=== PATIENT | female | born 1935 | race Caucasian/White ===

== ENCOUNTER 2017-05-06 03:27 | Inpatient (IN) | payer MEDICARE ==
[2017-05-06] MEDS ORDERED: ONDANSETRON 4 MG/2 ML VIAL IVP STA (03:47)
[2017-05-06] MEDS ORDERED: NITROGLYCERIN OINT 1 INCH/GM PACKET TOPICAL STA (03:48)
[2017-05-06] MEDS ORDERED: ASPIRIN 81 MG PO STA (03:48)
[2017-05-06] MEDS ORDERED: FAMOTIDINE 20 MG/2 ML VIAL IV STA (03:48)
--- NOTE | 2017-05-06 03:52 | ED ---
General Adult HPI - General Chief complaint: Chest Pain Stated complaint: chest pain Time Seen by Provider: 05/06/17 03:37 Source: patient, EMS, RN notes reviewed Mode of arrival: EMS Limitations: no limitations - History of Present Illness Initial comments: Patient is a pleasant 81-year-old female presenting with son for chest discomfort. Patient did call his son 3 times complaining of chest discomfort. Son states patient is being evaluated for dementia and recently failed the dementia test. Patient admits to having chest discomfort still. Patient has nausea and does vomit and emergency department. Patient is slightly sweaty. Patient does complain of some dyspnea. Patient is overall a poor historian - Related Data Home Medications Medication Instructions Recorded Confirmed Aspirin 81 mg PO DAILY 02/01/14 02/08/16 Simvastatin [Zocor] 20 mg PO HS 02/01/14 02/08/16 ALPRAZolam [Xanax] 0.25 mg PO BID PRN 04/02/15 02/08/16 Montelukast [Singulair] 10 mg PO DAILY 04/02/15 02/08/16 Dicyclomine [Bentyl] 10 mg PO BID PRN 08/12/15 02/08/16 Ferrous Sulfate [Iron (65 MG 325 mg PO DAILY 08/12/15 02/08/16 Elemental)] Ascorbic Acid [Vitamin C] 12/29/15 02/08/16 Ascorbic Acid [Vitamin C] 500 mg PO DAILY 12/29/15 02/08/16 cloNIDine HCL [Clonidine HCl] 0.1 mg PO BID 12/29/15 02/08/16 Previous Rx's Medication Instructions Recorded Meclizine [Antivert] 25 mg PO TID #20 tab 02/01/14 Folic Acid 1 mg PO DAILY@1200 #30 tab 04/04/15 Metoprolol Tartrate [Lopressor] 12.5 mg PO BID #0 tab 12/30/15 Metoprolol Tartrate [Lopressor] 12.5 mg PO BID #60 dose 12/31/15 Allergies Allergy/AdvReac Type Severity Reaction Status Date / Time azithromycin [From Zithromax] Allergy Unknown Verified 02/08/16 15:37 clindamycin Allergy Unknown Verified 02/08/16 15:37 clindamycin HCl Allergy Unknown Verified 02/08/16 15:37 [From Cleocin] clindamycin palmitate HCl Allergy Unknown Verified 02/08/16 15:37 [From Cleocin] clindamycin phosphate Allergy Unknown Verified 02/08/16 15:37 [From Cleocin] codeine Allergy Unknown Verified 02/08/16 15:37 cortisone [Cortisone] Allergy Unknown Verified 02/08/16 15:37 lincomycin HCl Allergy Unknown Verified 02/08/16 15:37 [From Lincocin] meperidine HCl [From Demerol] Allergy Unknown Verified 02/08/16 15:37 Penicillins Allergy Unknown Verified 02/08/16 15:37 prednisone Allergy Unknown Verified 02/08/16 15:37 Review of Systems ROS Statement: Those systems with pertinent positive or pertinent negative responses have been documented in the HPI. ROS Other: All systems not noted in ROS Statement are negative. Constitutional: Denies: fever Eyes: Denies: eye pain ENT: Denies: ear pain Respiratory: Reports: dyspnea. Denies: cough Cardiovascular: Reports: chest pain Endocrine: Denies: fatigue Gastrointestinal: Reports: nausea, vomiting. Denies: abdominal pain Genitourinary: Denies: dysuria Musculoskeletal: Denies: back pain Skin: Denies: rash Neurological: Denies: weakness Past Medical History Past Medical History: Asthma, Diabetes Mellitus, GERD/Reflux, Osteoarthritis (OA ), Pneumonia Additional Past Medical History / Comment(s): rosacea,anemia, DIZZINESS. History of Any Multi-Drug Resistant Organisms: None Reported Past Surgical History: Appendectomy, Heart Catheterization, Hysterectomy, Pacemaker Additional Past Surgical History / Comment(s): 04/24/15 cardiac cath-clean. orif rt ankle-plate and screws, blephoplasty,loop recorder, colonoscopy Past Anesthesia/Blood Transfusion Reactions: No Reported Reaction Type of Cardiac Device: Permanent Pacemaker Device Placement Date:: UNK Past Psychological History: Anxiety Smoking Status: Former smoker Past Alcohol Use History: None Reported Past Drug Use History: None Reported - Past Family History Father Additional Family Medical History / Comment(s): lung disease Mother History Unknown: Yes General Exam General appearance: alert, in no apparent distress Head exam: Present: atraumatic Eye exam: Present: normal appearance, PERRL ENT exam: Present: normal oropharynx Neck exam: Present: normal inspection Respiratory exam: Present: normal lung sounds bilaterally Cardiovascular Exam: Present: normal rhythm, tachycardia Expanded Peripheral pulses: 2+: Dorsalis Pedis (R), Dorsalis Pedis (L) GI/Abdominal exam: Present: soft. Absent: tenderness Extremities exam: Present: normal inspection. Absent: pedal edema, calf tenderness Neurological exam: Present: alert Psychiatric exam: Present: normal affect, normal mood Skin exam: Present: normal color Course Vital Signs 05/06/17 05/06/17 03:29 04:55 Temperature 96.0 F L Pulse Rate 120 H 115 H Respiratory 16 16 Rate Blood Pressure 128/91 146/103 O2 Sat by Pulse 96 Oximetry EKG Findings - EKG Comments: EKG Findings:: Accelerated junctional rhythm at 117. QRS 104. QT 318. QTC 443. Left axis. Left anterior fascicular block. LVH with repolarization changes. Q waves in leads V1 through V4. Inverted T waves V5 V6. Medical Decision Making - Medical Decision Making Patient reevaluated and somewhat improved, resting comfortably in bed. Patient and son updated on results and plan. Case discussed with Dr. Arango, who will admit for Dr. jacinto. Heparin will be started. Cardiology will be consult. - Lab Data Result diagrams: 05/06/17 04:26 05/06/17 04:26 Lab Results 05/06/17 05/06/17 05/06/17 Range/Units 03:53 04:26 04:26 WBC 14.6 H (3.8-10.6) k/uL RBC 5.78 H (3.80-5.40) m/uL Hgb 17.3 H (11.4-16.0) gm/dL Hct 55.8 H (34.0-46.0) % MCV 96.6 (80.0-100.0) fL MCH 29.9 (25.0-35.0) pg MCHC 31.0 (31.0-37.0) g/dL RDW 13.1 (11.5-15.5) % Plt Count 458 H (150-450) k/uL Neutrophils % 78 % Lymphocytes % 14 % Monocytes % 4 % Eosinophils % 1 % Basophils % 1 % Neutrophils # 11.4 H (1.3-7.7) k/uL Lymphocytes # 2.1 (1.0-4.8) k/uL Monocytes # 0.6 (0-1.0) k/uL Eosinophils # 0.2 (0-0.7) k/uL Basophils # 0.1 (0-0.2) k/uL PT 12.5 H (9.0-12.0) sec INR 1.3 H (<1.2) APTT 24.1 (22.0-30.0) sec Sodium (137-145) mmol/L Potassium (3.5-5.1) mmol/L Chloride (98-107) mmol/L Carbon Dioxide (22-30) mmol/L Anion Gap mmol/L BUN (7-17) mg/dL Creatinine (0.52-1.04) mg/dL Est GFR (MDRD) Af Amer (>60 ml/min/1.73 sqM) Est GFR (MDRD) Non-Af (>60 ml/min/1.73 sqM) Glucose (74-99) mg/dL POC Glucose (mg/dL) 264 H (75-99) mg/dL POC Glu [employer] Worker ID Jacki Johnson Calcium (8.4-10.2) mg/dL Magnesium (1.6-2.3) mg/dL Total Bilirubin (0.2-1.3) mg/dL AST (14-36) U/L ALT (9-52) U/L Alkaline Phosphatase (38-126) U/L Total Creatine Kinase (30-135) U/L CK-MB (CK-2) (0.0-2.4) ng/mL CK-MB (CK-2) Rel Index Troponin I (0.000-0.034) ng/mL Total Protein (6.3-8.2) g/dL Albumin (3.5-5.0) g/dL Amylase (30-110) U/L Lipase (23-300) U/L 05/06/17 05/06/17 Range/Units 04:26 04:26 WBC (3.8-10.6) k/uL RBC (3.80-5.40) m/uL Hgb (11.4-16.0) gm/dL Hct (34.0-46.0) % MCV (80.0-100.0) fL MCH (25.0-35.0) pg MCHC (31.0-37.0) g/dL RDW (11.5-15.5) % Plt Count (150-450) k/uL Neutrophils % % Lymphocytes % % Monocytes % % Eosinophils % % Basophils % % Neutrophils # (1.3-7.7) k/uL Lymphocytes # (1.0-4.8) k/uL Monocytes # (0-1.0) k/uL Eosinophils # (0-0.7) k/uL Basophils # (0-0.2) k/uL PT (9.0-12.0) sec INR (<1.2) APTT (22.0-30.0) sec Sodium 140 (137-145) mmol/L Potassium 4.1 (3.5-5.1) mmol/L Chloride 108 H (98-107) mmol/L Carbon Dioxide 17 L (22-30) mmol/L Anion Gap 15 mmol/L BUN 14 (7-17) mg/dL Creatinine 0.70 (0.52-1.04) mg/dL Est GFR (MDRD) Af Amer >60 (>60 ml/min/1.73 sqM) Est GFR (MDRD) Non-Af >60 (>60 ml/min/1.73 sqM) Glucose 305 H (74-99) mg/dL POC Glucose (mg/dL) (75-99) mg/dL POC Glu [employer] Worker ID Calcium 9.9 (8.4-10.2) mg/dL Magnesium 1.9 (1.6-2.3) mg/dL Total Bilirubin 0.9 (0.2-1.3) mg/dL AST 36 (14-36) U/L ALT 26 (9-52) U/L Alkaline Phosphatase 71 (38-126) U/L Total Creatine Kinase 173 H (30-135) U/L CK-MB (CK-2) 5.1 H* (0.0-2.4) ng/mL CK-MB (CK-2) Rel Index 2.9 Troponin I 0.988 H* (0.000-0.034) ng/mL Total Protein 8.3 H (6.3-8.2) g/dL Albumin 4.6 (3.5-5.0) g/dL Amylase 45 (30-110) U/L Lipase 23 (23-300) U/L - Radiology Data Radiology results: image reviewed (Chest x-ray does show some increased interstitial markings concerning for CHF.) Critical Care Time Critical Care Time: Yes Total Critical Care Time: 34 Disposition Clinical Impression: NSTEMI (non-ST elevated myocardial infarction) Disposition: ADMITTED IP TO THIS [facility] Condition: Serious Referrals: Liza Mederios MD [Primary Care Provider] - 1-2 days Decision Time: 06:02
[2017-05-06 04:21] LABS: Glucose,Whole Blood 264 mg/dL (75-99)
--- NOTE | 2017-05-06 04:43 | XR ---
EXAM: XR Chest, 2 Views CLINICAL HISTORY: Reason: Chest Pain TECHNIQUE: Frontal and lateral views of the chest. COMPARISON: 02/08/16 radiographs. FINDINGS: Lungs: The pulmonary vascular markings are now more prominent and indistinct throughout. Linear opacity in the right midlung field may be atelectasis or minimal fluid along a fissure. Stable 6 mm right midlung field nodule. Pleural space: Trace bilateral pleural effusions. No pneumothorax. Heart: Mild cardiomegaly, stable. Mediastinum: Stable allowing for differences in positioning and projection, including aortic ectasia. Bones/joints: Osteopenia and mild degenerative changes without acute fracture seen. Rightward curvature of the thoracic spine may be positional. Tubes, lines and devices: There are again postsurgical changes at the level of GE junction. Stable appearance of left-sided single lead pacemaker. IMPRESSION: Findings suggesting the presence of CHF with interval progression since the prior exam. Stable small right midlung nodule.
[2017-05-06 04:46] LABS: Basophils # (A) 0.1 k/uL (0-0.2); Basophils % (A) 1 %; CHCM 32.2; Eosinophils # (A) 0.2 k/uL (0-0.7); Eosinophils % (A) 1 %; HCT 55.8 % (34.0-46.0); HDW 2.35; HGB 17.3 gm/dL (11.4-16.0); Luc # (Auto) 0.22; Luc % (Auto) 2; Lymphocytes # (A) 2.1 k/uL (1.0-4.8); Lymphocytes % (A) 14 %; MCH 29.9 pg (25.0-35.0); MCV 96.6 fL (80.0-100.0); Mean Platelet Volume 7.1; Monocytes # (A) 0.6 k/uL (0-1.0); Monocytes % (A) 4 %; Neutrophils # (A) 11.4 k/uL (1.3-7.7); Neutrophils % (A) 78 %; RBC 5.78 m/uL (3.80-5.40); RDW 13.1 % (11.5-15.5); WBC 14.6 k/uL (3.8-10.6)
[2017-05-06 04:54] LABS: INR 1.3 (<1.2); Partial Thromboplastin Time 24.1 sec (22.0-30.0); Prothrombin Time 12.5 sec (9.0-12.0)
[2017-05-06 04:58] LABS: ALT 26 U/L (9-52); AST 36 U/L (14-36); Alkaline Phosphatase 71 U/L (38-126); Amylase 45 U/L (30-110); Anion Gap 15 mmol/L; Blood Urea Nitrogen 14 mg/dL (7-17); Calcium 9.9 mg/dL (8.4-10.2); Carbon Dioxide 17 mmol/L (22-30); Chloride 108 mmol/L (98-107); Glucose 305 mg/dL (74-99); Magnesium 1.9 mg/dL (1.6-2.3); Non-African American GFR(MDRD) >60 (>60 ml/min/1.73 sqM); Potassium 4.1 mmol/L (3.5-5.1); Sodium 140 mmol/L (137-145); Total Bilirubin 0.9 mg/dL (0.2-1.3); Total Protein 8.3 g/dL (6.3-8.2)
[2017-05-06 05:59] LABS: Creatine Kinase MB 5.1 ng/mL (0.0-2.4); Troponin I 0.988 ng/mL (0.000-0.034)
[2017-05-06] MEDS ORDERED: HEPARIN SODIUM,PORCINE 5,000 UNIT/ML 1 ML VIAL IV ONE (06:03)
[2017-05-06] MEDS ORDERED: HEPARIN SODIUM,PORCINE 5,000 UNIT/ML 1 ML VIAL IV PRN (06:03)
[2017-05-06] MEDS ORDERED: NITROGLYCERIN SL TABS 0.4 MG TAB SUBLINGUAL PRN (06:03)
[2017-05-06] MEDS: HEPARIN SODIUM,PORCINE/D5W PMX 25,000 UNIT in DEXTROSE/WATER 1 500ML.BAG IV SCH (06:11)
[2017-05-06 08:38] LABS: Glucose,Whole Blood 332 mg/dL (75-99)
[2017-05-06] MEDS: INSULIN LISPRO (humaLOG) 300 UNIT/3 ML VIAL SQ SCH ×4 (08:41→21:58)
[2017-05-06] MEDS: METOPROLOL TARTRATE 50 MG TAB PO SCH ×2 (08:43→21:38)
[2017-05-06] MEDS: cloNIDine HCL 0.1 MG TAB PO SCH ×4 (08:43→21:51)
[2017-05-06] MEDS ORDERED: METOPROLOL TARTRATE 12.5 MG TAB PO SCH ×2 (09:00)
[2017-05-06] MEDS ORDERED: FUROSEMIDE 10 MG/ML 4 ML VIAL IV STA (10:09)
[2017-05-06] MEDS: INSULIN GLARGINE 100 UNIT/ML 10 ML VIAL SQ SCH (11:19)
[2017-05-06] MEDS: NITROGLYCERIN OINT 1 INCH/GM PACKET TOPICAL SCH ×3 (11:37→23:02)
[2017-05-06 11:47] LABS: Glucose,Whole Blood 285 mg/dL (75-99)
[2017-05-06] MEDS ORDERED: ALPRAZolam 0.25 MG TAB PO PRN (11:50)
[2017-05-06 11:52] LABS: Hemoglobin A1C 6.9 % (4.2-6.1)
[2017-05-06] MEDS ORDERED: LORazepam 2 MG/ML SYRINGE IV STA (12:08)
[2017-05-06] MEDS ORDERED: MECLIZINE 25 MG TAB PO PRN (12:15)
--- NOTE | 2017-05-06 12:19 | P.CRDCN ---
History of Present Illness Consult reason: non-Q-wave IL, atrial fibrillation History of present illness: Patient interviewed and examined 81-year-old female with mild dementia who presents with chest discomfort shortness of breath and abnormal cardiac enzymes. A. fib with RVR. She was dizzy and lightheaded she has a permanent pacemaker implanted. Cardiac enzymes are abnormal white count is elevated ALLERGIES reviewed Medications reviewed Review of systems: No fever chills or rigors, no cough, phlegm or expectoration , no nausea, vomiting or diarrhea, no hematuria, dysuria, no musculoskeletal complaints, no strokes or seizures, no skin lesions.. Her main complaint at this time is she is dizzy when she stands up and she is a little bit of a cough no chest discomfort at this time On examination her blood pressures 130/90 102/62 mmHg she is afebrile 98.6F pulse rate is 128 beats a minute respirations 16 rhythm is irregular heart sounds otherwise are normal no murmurs or gallop breath sounds are normal no rhonchi no crackles abdomen soft nontender And is warm she is lying in bed comfortably Impression Non-Q wave myocardial infarction Hypertension Atrial fibrillation Not a candidate for anticoagulation risk of falls she's had multiple falls Poor candidate for isosorbide because she has very fluctuating blood pressures Plan Atorvastatin 20 mg by mouth daily and I will consider increasing to 40 mg by mouth daily, Lipitor panel. She is already on simvastatin 20 mg daily, increase metoprolol to 50 mg twice a day and drop the dose of clonidine to his half tablet 3 times a day of the 0.1 mg by mouth I would like to switch her to metoprolol only and taper off the clonidine over the next 2-3 days. She's had a non-Q-wave IL. I would recommend medical treatment only and hence I would even consider increasing atorvastatin 40 mg daily continue aspirin to baby aspirin should be enough We will monitor her on telemetry until Tuesday at least She will definitely need a sitter in the room Past Medical History Past Medical History: Asthma, Diabetes Mellitus, GERD/Reflux, Osteoarthritis (OA ), Pneumonia Additional Past Medical History / Comment(s): rosacea,anemia, DIZZINESS. History of Any Multi-Drug Resistant Organisms: None Reported Past Surgical History: Appendectomy, Heart Catheterization, Hysterectomy, Pacemaker Additional Past Surgical History / Comment(s): 04/24/15 cardiac cath-clean. orif rt ankle-plate and screws, blephoplasty,loop recorder, colonoscopy Past Anesthesia/Blood Transfusion Reactions: No Reported Reaction Type of Cardiac Device: Permanent Pacemaker Device Placement Date:: UNK Past Psychological History: Anxiety Smoking Status: Former smoker Past Alcohol Use History: None Reported Past Drug Use History: None Reported - Past Family History Father Additional Family Medical History / Comment(s): lung disease Mother History Unknown: Yes Medications and Allergies Home Medications Medication Instructions Recorded Confirmed Type Aspirin 81 mg PO DAILY 02/01/14 05/06/17 History Simvastatin [Zocor] 20 mg PO HS 02/01/14 05/06/17 History ALPRAZolam [Xanax] 0.25 mg PO BID PRN 04/02/15 05/06/17 History Montelukast [Singulair] 10 mg PO DAILY 04/02/15 05/06/17 History cloNIDine HCL [Clonidine HCl] 0.1 mg PO TID 12/29/15 05/06/17 History Escitalopram [Lexapro] 10 mg PO DAILY 05/06/17 05/06/17 History Folic Acid 1 mg PO DAILY 05/06/17 05/06/17 History Meclizine [Antivert] 25 mg PO TID PRN 05/06/17 05/06/17 History Allergies Allergy/AdvReac Type Severity Reaction Status Date / Time azithromycin [From Zithromax] Allergy Unknown Verified 05/06/17 08:06 clindamycin Allergy Unknown Verified 05/06/17 08:06 clindamycin HCl Allergy Unknown Verified 05/06/17 08:06 [From Cleocin] clindamycin palmitate HCl Allergy Unknown Verified 05/06/17 08:06 [From Cleocin] clindamycin phosphate Allergy Unknown Verified 05/06/17 08:06 [From Cleocin] codeine Allergy Unknown Verified 05/06/17 08:06 cortisone [Cortisone] Allergy Unknown Verified 05/06/17 08:06 lincomycin HCl Allergy Unknown Verified 05/06/17 08:06 [From Lincocin] meperidine HCl [From Demerol] Allergy Unknown Verified 05/06/17 08:06 Penicillins Allergy Unknown Verified 05/06/17 08:06 prednisone Allergy Unknown Verified 05/06/17 08:06 Physical Exam Vitals: Vital Signs Temp Pulse Pulse Pulse Resp BP BP 05/06/17 11:31 98.6 F 102 H 17 102/62 05/06/17 08:40 97.9 F 128 H 19 130/91 05/06/17 07:17 128 H 18 132/85 05/06/17 06:21 96.4 F L 118 H 14 134/87 05/06/17 04:55 96.0 F L 115 H 16 146/103 05/06/17 03:29 120 H 16 128/91 Pulse Ox 05/06/17 11:31 93 L 05/06/17 08:40 95 05/06/17 07:17 91 L 05/06/17 06:21 94 L 05/06/17 04:55 96 05/06/17 03:29 Intake and Output 05/05/17 05/06/17 05/06/17 22:59 06:59 14:59 Other: Voiding Method Toilet # Voids 2 Weight 63.503 kg Results 05/06/17 04:26 05/06/17 04:26 Cardiac Enzymes 05/06/17 05/06/17 Range/Units 04:26 04:26 AST 36 (14-36) U/L CK-MB (CK-2) 5.1 H* (0.0-2.4) ng/mL Troponin I 0.988 H* (0.000-0.034) ng/mL Coagulation 05/06/17 05/06/17 Range/Units 04:26 11:31 PT 12.5 H (9.0-12.0) sec APTT 24.1 58.1 H (22.0-30.0) sec CBC 05/06/17 Range/Units 04:26 WBC 14.6 H (3.8-10.6) k/uL RBC 5.78 H (3.80-5.40) m/uL Hgb 17.3 H (11.4-16.0) gm/dL Hct 55.8 H (34.0-46.0) % Plt Count 458 H (150-450) k/uL Comprehensive Metabolic Panel 05/06/17 Range/Units 04:26 Sodium 140 (137-145) mmol/L Potassium 4.1 (3.5-5.1) mmol/L Chloride 108 H (98-107) mmol/L Carbon Dioxide 17 L (22-30) mmol/L BUN 14 (7-17) mg/dL Creatinine 0.70 (0.52-1.04) mg/dL Glucose 305 H (74-99) mg/dL Calcium 9.9 (8.4-10.2) mg/dL AST 36 (14-36) U/L ALT 26 (9-52) U/L Alkaline Phosphatase 71 (38-126) U/L Total Protein 8.3 H (6.3-8.2) g/dL Albumin 4.6 (3.5-5.0) g/dL Current Medications Generic Name Dose Route Start Last Admin Trade Name Freq PRN Reason Stop Dose Admin Alprazolam 0.25 mg 05/06/17 11:50 Xanax PO BID PRN Anxiety Aspirin 325 mg 05/07/17 09:00 Aspirin PO DAILY [facility] Clonidine 0.05 mg 05/06/17 09:00 05/06/17 08:43 Catapres PO 0.05 mg TID CRISTOFER Administration Escitalopram Oxalate 10 mg 05/07/17 09:00 Lexapro PO DAILY [facility] Folic Acid 1 mg 05/07/17 12:00 Folic Acid PO 1200 [facility] Heparin Sodium (Porcine) 0 unit 05/06/17 06:03 Heparin IV Q6HR PRN Low PTT Protocol Heparin Sodium/Dextrose 25,000 500 mls @ 15.24 mls/hr 05/06/17 06:15 06:11 unit/ IV Solution IV 12 units/kg/hr .Q24H CRISTOFER 15.24 mls/hr Protocol Administration 12 UNITS/KG/HR Insulin Glargine 10 unit 05/06/17 10:15 05/06/17 11:19 Lantus SQ 10 unit DAILY [facility] Administration Insulin Human Lispro 0 unit 05/06/17 07:30 05/06/17 11:37 Humalog SQ 4 unit ACHS CRISTOFER Administration Protocol Lorazepam 0.5 mg 05/06/17 12:08 Ativan IV 05/06/17 12:09 ONCE STA Meclizine HCl 25 mg 05/06/17 12:15 Antivert PO TID PRN DIZZINESS Metoprolol Tartrate 50 mg 05/06/17 09:00 05/06/17 08:43 Lopressor PO 50 mg BID CRISTOFER Administration Montelukast Sodium 10 mg 05/07/17 09:00 Singulair PO DAILY CRISTOFER Nitroglycerin 1 inch 05/06/17 12:00 05/06/17 11:37 Nitro-Bid Oint TOPICAL 1 inch Q6HR CRISTOFER Administration Nitroglycerin 0.4 mg 05/06/17 06:03 Nitrostat SUBLINGUAL Q5M PRN Chest Pain Non-Formulary Medication 20 mg 05/06/17 21:00 Simvastatin PO HS [facility] Intake and Output 05/05/17 05/06/17 05/06/17 22:59 06:59 14:59 Other: Voiding Method Toilet # Voids 2 Weight 63.503 kg 05/06/17 04:26 05/06/17 04:26
--- NOTE | 2017-05-06 12:29 | P.HPIM ---
History of Present Illness H&P Date: 05/06/17 Chief Complaint: Chest pain This is a 81-year-old female with a known past medical history of dementia, hypertension, hyperlipidemia, chronic vertigo, anxiety, and diabetes mellitus. Patient was brought into the emergency room by her son for chest discomfort. ER reports that the patient told her son that she was having chest pain 3 times. She was found to have elevated troponin at 0.988 started on IV heparin and diagnosed with a non-ST elevated myocardial infarction. EKG had shown a general accelerated junctional rhythm with PVCs. She's been admitted to the sixth floor cardiology has been consulted. Chest x-ray showed signs of congestive heart failure and BNP was elevated at 7580. Patient admits to having some shortness of breath and lungs were evidence of fluid overload. She was started on IV Lasix. Patient's blood sugars were also elevated at 332 A1c is 6.9. Portion reports that she's had a history of diabetes but is been off medication for years. Cardiology has adjust medications they've increased the metoprolol if the twice a day and decreased the clonidine. Patient is easily agitated. Nursing staff has notified me that patient is coming aggressive and is agitated. She'll receive 1 dose of Ativan 2.5 mg 1 IV. Patient refuses to take her Xanax this morning. Review of Systems Visit refer to HPI otherwise unremarkable Past Medical History Past Medical History: Asthma, Diabetes Mellitus, GERD/Reflux, Osteoarthritis (OA ), Pneumonia Additional Past Medical History / Comment(s): rosacea,anemia, DIZZINESS. History of Any Multi-Drug Resistant Organisms: None Reported Past Surgical History: Appendectomy, Heart Catheterization, Hysterectomy, Pacemaker Additional Past Surgical History / Comment(s): 04/24/15 cardiac cath-clean. orif rt ankle-plate and screws, blephoplasty,loop recorder, colonoscopy Past Anesthesia/Blood Transfusion Reactions: No Reported Reaction Type of Cardiac Device: Permanent Pacemaker Device Placement Date:: UNK Past Psychological History: Anxiety Smoking Status: Former smoker Past Alcohol Use History: None Reported Past Drug Use History: None Reported - Past Family History Father Additional Family Medical History / Comment(s): lung disease Mother History Unknown: Yes Medications and Allergies Home Medications Medication Instructions Recorded Confirmed Type Aspirin 81 mg PO DAILY 02/01/14 05/06/17 History Simvastatin [Zocor] 20 mg PO HS 02/01/14 05/06/17 History ALPRAZolam [Xanax] 0.25 mg PO BID PRN 04/02/15 05/06/17 History Montelukast [Singulair] 10 mg PO DAILY 04/02/15 05/06/17 History cloNIDine HCL [Clonidine HCl] 0.1 mg PO TID 12/29/15 05/06/17 History Escitalopram [Lexapro] 10 mg PO DAILY 05/06/17 05/06/17 History Folic Acid 1 mg PO DAILY 05/06/17 05/06/17 History Meclizine [Antivert] 25 mg PO TID PRN 05/06/17 05/06/17 History Allergies Allergy/AdvReac Type Severity Reaction Status Date / Time azithromycin [From Zithromax] Allergy Unknown Verified 05/06/17 08:06 clindamycin Allergy Unknown Verified 05/06/17 08:06 clindamycin HCl Allergy Unknown Verified 05/06/17 08:06 [From Cleocin] clindamycin palmitate HCl Allergy Unknown Verified 05/06/17 08:06 [From Cleocin] clindamycin phosphate Allergy Unknown Verified 05/06/17 08:06 [From Cleocin] codeine Allergy Unknown Verified 05/06/17 08:06 cortisone [Cortisone] Allergy Unknown Verified 05/06/17 08:06 lincomycin HCl Allergy Unknown Verified 05/06/17 08:06 [From Lincocin] meperidine HCl [From Demerol] Allergy Unknown Verified 05/06/17 08:06 Penicillins Allergy Unknown Verified 05/06/17 08:06 prednisone Allergy Unknown Verified 05/06/17 08:06 Physical Exam Vitals: Vital Signs Temp Pulse Pulse Pulse Resp BP BP 05/06/17 11:31 98.6 F 102 H 17 102/62 05/06/17 08:40 97.9 F 128 H 19 130/91 05/06/17 07:17 128 H 18 132/85 05/06/17 06:21 96.4 F L 118 H 14 134/87 05/06/17 04:55 96.0 F L 115 H 16 146/103 05/06/17 03:29 120 H 16 128/91 Pulse Ox 05/06/17 11:31 93 L 05/06/17 08:40 95 05/06/17 07:17 91 L 05/06/17 06:21 94 L 05/06/17 04:55 96 05/06/17 03:29 Intake and Output 05/05/17 05/06/17 05/06/17 22:59 06:59 14:59 Other: Voiding Method Toilet # Voids 2 Weight 63.503 kg Head normocephalic Neck supple Lungs crackles at the bases Heart regular rate and rhythm S1-S2, no rub or gallop Abdomen is soft nontender nondistended positive bowel sounds no hepatosplenomegaly Extremities no edema Neuro alert and orientated to 3 Results CBC & Chem 7: 05/06/17 04:26 05/06/17 04:26 Labs: Abnormal Lab Results - Last 24 Hours (Table) 05/06/17 05/06/17 05/06/17 Range/Units 03:53 04:26 04:26 WBC 14.6 H (3.8-10.6) k/uL RBC 5.78 H (3.80-5.40) m/uL Hgb 17.3 H (11.4-16.0) gm/dL Hct 55.8 H (34.0-46.0) % Plt Count 458 H (150-450) k/uL Neutrophils # 11.4 H (1.3-7.7) k/uL PT 12.5 H (9.0-12.0) sec INR 1.3 H (<1.2) APTT (22.0-30.0) sec Chloride (98-107) mmol/L Carbon Dioxide (22-30) mmol/L Glucose (74-99) mg/dL POC Glucose (mg/dL) 264 H (75-99) mg/dL Hemoglobin A1c (4.2-6.1) % Total Creatine Kinase (30-135) U/L CK-MB (CK-2) (0.0-2.4) ng/mL Troponin I (0.000-0.034) ng/mL Total Protein (6.3-8.2) g/dL 05/06/17 05/06/17 05/06/17 Range/Units 04:26 04:26 04:26 WBC (3.8-10.6) k/uL RBC (3.80-5.40) m/uL Hgb (11.4-16.0) gm/dL Hct (34.0-46.0) % Plt Count (150-450) k/uL Neutrophils # (1.3-7.7) k/uL PT (9.0-12.0) sec INR (<1.2) APTT (22.0-30.0) sec Chloride 108 H (98-107) mmol/L Carbon Dioxide 17 L (22-30) mmol/L Glucose 305 H (74-99) mg/dL POC Glucose (mg/dL) (75-99) mg/dL Hemoglobin A1c 6.9 H (4.2-6.1) % Total Creatine Kinase 173 H (30-135) U/L CK-MB (CK-2) 5.1 H* (0.0-2.4) ng/mL Troponin I 0.988 H* (0.000-0.034) ng/mL Total Protein 8.3 H (6.3-8.2) g/dL 05/06/17 05/06/17 05/06/17 Range/Units 08:35 11:31 11:35 WBC (3.8-10.6) k/uL RBC (3.80-5.40) m/uL Hgb (11.4-16.0) gm/dL Hct (34.0-46.0) % Plt Count (150-450) k/uL Neutrophils # (1.3-7.7) k/uL PT (9.0-12.0) sec INR (<1.2) APTT 58.1 H (22.0-30.0) sec Chloride (98-107) mmol/L Carbon Dioxide (22-30) mmol/L Glucose (74-99) mg/dL POC Glucose (mg/dL) 332 H 285 H (75-99) mg/dL Hemoglobin A1c (4.2-6.1) % Total Creatine Kinase (30-135) U/L CK-MB (CK-2) (0.0-2.4) ng/mL Troponin I (0.000-0.034) ng/mL Total Protein (6.3-8.2) g/dL Assessment and Plan Plan: 1. Acute Non-Q-wave myocardial infarction present on admission: Patient currently on IV heparin. She has been evaluated by cardiology the recommending medical management. They've adjusted her Lipitor. Per cardiology patient is a poor candidate for indoor because of her fluctuating blood pressures. Statin dose adjusted by cardiology 2. Atrial fibrillation with rapid ventricular response: Evaluated by cardiology they've increased her metoprolol dose to 50 mg twice a day. Patient not a good candidate for anticoagulation because of her risks of multiple falls 3. Hyperlipidemia continue statin 4. Acute diastolic CHF exacerbation: Patient started on IV Lasix. Chest x-ray shows evidence of fluid overload and BNP elevated at 7580. Echo pending 5. Diabetes mellitus type 2: Patient has been off of blood sugar medications for years. However, blood sugar of 332 on admission. Hemoglobin A1c of 6.9. Patient will be started on Lantus 10 units daily and continue sliding scale coverage 6. Dementia 7. Essential hypertension 8. Generalized anxiety disorder resume Xanax 9. Chronic vertigo resume Antivert DVT prophylaxis IV heparin Consult has been placed for social work for possible ECF placement. Consult PT OT Time with Patient: Greater than 30 (Greater than 50% of the total time spent in counseling and coordination of care.I performed an examination of the patient and discussed their management with the physician Furnace Operator. I have reviewed the Physician Furnace Operator's notes and agree with the documented findings and plan of care)
[2017-05-06 12:33] LABS: Creatine Kinase MB 6.4 ng/mL (0.0-2.4); Troponin I 1.9 ng/mL (0.000-0.034)
--- NOTE | 2017-05-06 16:46 | ECHOF ---
Referral Reason:nstemi MEASUREMENTS -------- HEIGHT: 162.6 cm WEIGHT: 63.5 kg BP: 132/82 RVIDd: 1.8 cm (< 3.3) IVSd: 1.2 cm (0.6 - 1.1) LVIDd: 4.7 cm (3.9 - 5.3) LVPWd: 1.0 cm (0.6 - 1.1) IVSs: 1.5 cm LVIDs: 4.0 cm LVPWs: 1.2 cm LA Diam: 3.3 cm (2.7 - 3.8) LAESV Index (A-L): 27.30 ml/m Ao Diam: 3.4 cm (2.0 - 3.7) AV Cusp: 1.4 cm (1.5 - 2.6) LA Diam: 3.5 cm (2.7 - 3.8) MV EXCURSION: 15.228 mm (> 18.000) MV EF SLOPE: 67 mm/s (70 - 150) EPSS: 1.7 cm MV E Gilberto: 0.71 m/s MV DecT: 213 ms MV A Gilberto: 0.41 m/s MV E/A Ratio: 1.74 RAP: 5.00 mmHg RVSP: 34.02 mmHg FINDINGS -------- Sinus rhythm. This was a technically adequate study. There is mild concentric left ventricular hypertrophy. There is severe global hypokinesis of LV . Overall left ventricular systolic function is severely impaired with, an EF < 20%. The right ventricle is normal in size. Normal LA size by volume 22+/-6 ml/m2. The right atrial size is normal. The aortic valve is trileaflet, and appears structurally normal. No aortic stenosis or regurgitation. Mild mitral annular calcification present. Moderate mitral regurgitation is present. Mild tricuspid regurgitation present. There is no evidence of pulmonary hypertension. The right ventricular systolic pressure, as measured by Doppler, is 34.02mmHg. There is no pulmonic regurgitation present. The aortic root size is normal. There is no pericardial effusion. CONCLUSIONS -------- 1. There is mild concentric left ventricular hypertrophy. 2. There is no pulmonic regurgitation present. 3. The aortic root size is normal. 4. There is no pericardial effusion. 5. There is severe global hypokinesis of LV . 6. Overall left ventricular systolic function is severely impaired with, an EF < 20%. 7. The aortic valve is trileaflet, and appears structurally normal. No aortic stenosis or regurgitation. 8. Mild mitral annular calcification present. 9. Moderate mitral regurgitation is present. 10. Mild tricuspid regurgitation present. 11. There is no evidence of pulmonary hypertension. 12. The right ventricular systolic pressure, as measured by Doppler, is 34.02mmHg. SOLAR ENGINEER: Tabatha Johnson RDCS
[2017-05-06 16:51] LABS: Glucose,Whole Blood 105 mg/dL (75-99)
[2017-05-06] MEDS: FUROSEMIDE 10 MG/ML 4 ML VIAL IV SCH ×2 (17:04→23:02)
[2017-05-06 17:31] LABS: Creatine Kinase MB 4.8 ng/mL (0.0-2.4); Troponin I 2.51 ng/mL (0.000-0.034)
[2017-05-06] MEDS ORDERED: ATORVASTATIN 10 MG TAB PO SCH (21:00)
[2017-05-06 21:34] LABS: Glucose,Whole Blood 144 mg/dL (75-99)
[2017-05-06] MEDS: ATORVASTATIN 20 MG TAB PO SCH ×2 (21:38→21:51)
[2017-05-06] MEDS: MONTELUKAST 10 MG TAB PO SCH ×2 (21:38→21:51)
[2017-05-06] MEDS: LORazepam 2 MG/ML SYRINGE IV PRN (22:17)
[2017-05-07] MEDS: LORazepam 2 MG/ML SYRINGE IV PRN (02:43)
[2017-05-07] MEDS: NITROGLYCERIN OINT 1 INCH/GM PACKET TOPICAL SCH (05:41)
[2017-05-07 06:22] LABS: Mean Platelet Volume 7.1
[2017-05-07] MEDS: INSULIN LISPRO (humaLOG) 300 UNIT/3 ML VIAL SQ SCH ×4 (06:33→22:21)
[2017-05-07 06:43] LABS: Glucose,Whole Blood 153 mg/dL (75-99)
[2017-05-07 07:00] LABS: Cholesterol 193 mg/dL (<200); HDL Cholesterol 72 mg/dL (40-60)
[2017-05-07] MEDS: HEPARIN SODIUM,PORCINE/D5W PMX 25,000 UNIT in DEXTROSE/WATER 1 500ML.BAG IV SCH (07:43)
[2017-05-07] MEDS: ASPIRIN 325 MG TAB PO SCH (07:46)
[2017-05-07] MEDS: cloNIDine HCL 0.1 MG TAB PO SCH (07:46)
[2017-05-07] MEDS: FOLIC ACID 1 MG TAB PO SCH (07:46)
[2017-05-07] MEDS: ESCITALOPRAM 10 MG TAB PO SCH (07:47)
[2017-05-07] MEDS: METOPROLOL TARTRATE 50 MG TAB PO SCH ×3 (07:47→22:11)
[2017-05-07] MEDS: INSULIN GLARGINE 100 UNIT/ML 10 ML VIAL SQ SCH (08:02)
[2017-05-07] MEDS: FUROSEMIDE 10 MG/ML 4 ML VIAL IV SCH (08:03)
--- NOTE | 2017-05-07 10:23 | P.PN ---
Subjective This is a 81-year-old female with a known past medical history of dementia, hypertension, hyperlipidemia, chronic vertigo, anxiety, and diabetes mellitus. Patient was brought into the emergency room by her son for chest discomfort. ER reports that the patient told her son that she was having chest pain 3 times. She was found to have elevated troponin at 0.988 started on IV heparin and diagnosed with a non-ST elevated myocardial infarction. EKG had shown a general accelerated junctional rhythm with PVCs. She's been admitted to the sixth floor cardiology has been consulted. Chest x-ray showed signs of congestive heart failure. On 05/06/2017 Patient somnolant, responsive in no apparent distress, no new episodes of chest pain no shortness of breath at rest. Objective - Vital Signs Vital signs: Vital Signs Temp 97 F L 05/07/17 07:46 Pulse 106 H 05/07/17 07:46 Resp 20 05/07/17 07:46 BP 103/76 05/07/17 07:46 Pulse Ox 91 L 05/07/17 07:46 Intake & Output 05/06/17 05/07/17 05/07/17 18:59 06:59 18:59 Intake Total 376.174 150 Balance 376.174 150 Weight 63.503 kg 52 kg Intake: Intake, IV Titration 376.174 Amount Heparin Sodium,Porcine/ 376.174 D5w Pmx 25,000 unit In Dextrose/Water 1 500ml. bag @ 12 UNITS/KG/HR 15. 24 mls/hr IV .Q24H [facility] Rx #:[id number] Oral 150 Other: Voiding Method Toilet Toilet Toilet # Voids 1 4 - Exam In general patient is alert and oriented 3 in no apparent distress HEENT head normocephalic and atraumatic Neck is supple no JVD no goiter no lymphadenopathy Chest exam reveals a scattered crackles in both bases no wheezing Cardiac exam reveals regular heart sounds S1 and S2 no gallops no murmurs Abdomen is soft nontender no organomegaly with normal bowel sounds Extremity exam reveals no edema no cyanosis or clubbing - Labs CBC & Chem 7: 05/07/17 05:37 05/06/17 04:26 Labs: Abnormal Lab Results - Last 24 Hours (Table) 05/06/17 05/06/17 05/06/17 Range/Units 04:26 11:31 11:31 APTT 58.1 H (22.0-30.0) sec POC Glucose (mg/dL) (75-99) mg/dL Hemoglobin A1c 6.9 H (4.2-6.1) % Total Creatine Kinase 151 H (30-135) U/L CK-MB (CK-2) 6.4 H* (0.0-2.4) ng/mL Troponin I 1.900 H* (0.000-0.034) ng/mL HDL Cholesterol (40-60) mg/dL 05/06/17 05/06/17 05/06/17 Range/Units 11:35 16:35 16:47 APTT (22.0-30.0) sec POC Glucose (mg/dL) 285 H 105 H (75-99) mg/dL Hemoglobin A1c (4.2-6.1) % Total Creatine Kinase 176 H (30-135) U/L CK-MB (CK-2) 4.8 H* (0.0-2.4) ng/mL Troponin I 2.510 H* (0.000-0.034) ng/mL HDL Cholesterol (40-60) mg/dL 05/06/17 05/07/17 05/07/17 Range/Units 21:31 05:37 05:37 APTT 54.9 H (22.0-30.0) sec POC Glucose (mg/dL) 144 H (75-99) mg/dL Hemoglobin A1c (4.2-6.1) % Total Creatine Kinase (30-135) U/L CK-MB (CK-2) (0.0-2.4) ng/mL Troponin I (0.000-0.034) ng/mL HDL Cholesterol 72 H (40-60) mg/dL 05/07/17 Range/Units 06:31 APTT (22.0-30.0) sec POC Glucose (mg/dL) 153 H (75-99) mg/dL Hemoglobin A1c (4.2-6.1) % Total Creatine Kinase (30-135) U/L CK-MB (CK-2) (0.0-2.4) ng/mL Troponin I (0.000-0.034) ng/mL HDL Cholesterol (40-60) mg/dL Assessment and Plan Plan: 1. Acute Non-Q-wave myocardial infarction present on admission: Patient currently on IV heparin. She has been evaluated by cardiology the recommending medical management. They've adjusted her Lipitor. Per cardiology patient is a poor candidate for indoor because of her fluctuating blood pressures. Statin dose adjusted by cardiology 2. Atrial fibrillation with rapid ventricular response: Evaluated by cardiology they've increased her metoprolol dose to 50 mg twice a day. Patient not a good candidate for anticoagulation because of her risks of multiple falls 3. Hyperlipidemia continue statin 4. Acute diastolic CHF exacerbation: Patient started on IV Lasix. Chest x-ray shows evidence of fluid overload and BNP elevated at 7580. Echo pending 5. Diabetes mellitus type 2: Patient has been off of blood sugar medications for years. However, blood sugar of 332 on admission. Hemoglobin A1c of 6.9. Patient will be started on Lantus 10 units daily and continue sliding scale coverage, at this time no plans per cardiology for any intervention, will start metformin 500 mg by mouth twice daily Will discontinue Lantus and assess if patient can be on oral hypoglycemic agents alone. 6. Dementia, chronic however patient is having worsening mental status changes will check computed tomography scan of the brain without contrast Will consult neurology patient may need to be transferred to a group home after this admission 7. Essential hypertension 8. Generalized anxiety disorder resume Xanax 9. Chronic vertigo resume Antivert 10. For DVT prophylaxis IV heparin has been discontinued will start lovenox 40 mg SQ daily
[2017-05-07 11:44] LABS: Glucose,Whole Blood 175 mg/dL (75-99)
--- NOTE | 2017-05-07 11:46 | P.PN ---
Subjective Principal diagnosis: NSTEMI A pleasant 81-year-old female patient who follows with in the office. She has a known history of paroxysmal atrial fibrillation, sick sinus syndrome, status post pacemaker, postural hypotension, not a candidate for anticoagulation due to frequent falls and dementia. Presented to the emergency department with complaints of chest discomfort. She was found to be positive for a non-ST elevation VA. Echocardiogram showed severely impaired LV systolic function with ejection fraction was 20%. Patient is being managed medically. She has been chest pain-free. Objective - Vital Signs Vital signs: Vital Signs Temp 97 F L 05/07/17 07:46 Pulse 106 H 05/07/17 07:46 Resp 20 05/07/17 07:46 BP 103/76 05/07/17 07:46 Pulse Ox 91 L 05/07/17 07:46 Intake & Output 05/06/17 05/07/17 05/07/17 18:59 06:59 18:59 Intake Total 376.174 150 Balance 376.174 150 Weight 63.503 kg 52 kg Intake: Intake, IV Titration 376.174 Amount Heparin Sodium,Porcine/ 376.174 D5w Pmx 25,000 unit In Dextrose/Water 1 500ml. bag @ 12 UNITS/KG/HR 15. 24 mls/hr IV .Q24H [facility] Rx #:[id number] Oral 150 Other: Voiding Method Toilet Toilet Toilet # Voids 1 4 - Exam PHYSICAL EXAMINATION: HEENT: Head is atraumatic, normocephalic. Pupils equal, round. Neck is supple. There is no elevated jugular venous pressure. HEART EXAMINATION: Heart sounds regular, S1 and S2 normal. No murmur or gallop heard. CHEST EXAMINATION: Lungs are clear to auscultation and precussion. No chest wall tenderness is noted on palpation or with deep breathing. ABDOMEN: Soft, nontender. Bowel sounds are heard. No organomegaly noted. EXTREMITIES: 2+ peripheral pulses with no evidence of peripheral edema and no calf tenderness noted. NEUROLOGIC patient is awake, alert and oriented to person. . - Labs CBC & Chem 7: 05/07/17 05:37 05/06/17 04:26 Labs: Abnormal Lab Results - Last 24 Hours (Table) 05/06/17 05/06/17 05/06/17 Range/Units 04:26 11:31 11:31 APTT 58.1 H (22.0-30.0) sec POC Glucose (mg/dL) (75-99) mg/dL Hemoglobin A1c 6.9 H (4.2-6.1) % Total Creatine Kinase 151 H (30-135) U/L CK-MB (CK-2) 6.4 H* (0.0-2.4) ng/mL Troponin I 1.900 H* (0.000-0.034) ng/mL HDL Cholesterol (40-60) mg/dL 05/06/17 05/06/17 05/06/17 Range/Units 11:35 16:35 16:47 APTT (22.0-30.0) sec POC Glucose (mg/dL) 285 H 105 H (75-99) mg/dL Hemoglobin A1c (4.2-6.1) % Total Creatine Kinase 176 H (30-135) U/L CK-MB (CK-2) 4.8 H* (0.0-2.4) ng/mL Troponin I 2.510 H* (0.000-0.034) ng/mL HDL Cholesterol (40-60) mg/dL 05/06/17 05/07/17 05/07/17 Range/Units 21:31 05:37 05:37 APTT 54.9 H (22.0-30.0) sec POC Glucose (mg/dL) 144 H (75-99) mg/dL Hemoglobin A1c (4.2-6.1) % Total Creatine Kinase (30-135) U/L CK-MB (CK-2) (0.0-2.4) ng/mL Troponin I (0.000-0.034) ng/mL HDL Cholesterol 72 H (40-60) mg/dL 05/07/17 Range/Units 06:31 APTT (22.0-30.0) sec POC Glucose (mg/dL) 153 H (75-99) mg/dL Hemoglobin A1c (4.2-6.1) % Total Creatine Kinase (30-135) U/L CK-MB (CK-2) (0.0-2.4) ng/mL Troponin I (0.000-0.034) ng/mL HDL Cholesterol (40-60) mg/dL Assessment and Plan Plan: Assessment and plan #1 non-ST elevation VA #2 hypertension #3 dementia #4 sick sinus syndrome #5 permanent pacemaker #6 severely impaired LV systolic function, EF less than 20% From applied behavior specialist perspective, we will discontinue Nitropaste, heparin drip and clonidine. We will increase metoprolol to 50 mg by mouth 3 times a day. Continue monitor the patient. We will Provide further recommendations accordingly. Maximize medical therapy. DISASTER DIRECTOR note has been reviewed, I agree with a documented findings and plan of care. Patient was seen and examined.
--- NOTE | 2017-05-07 12:04 | CT ---
EXAMINATION TYPE: CT brain wo con DATE OF EXAM: 05/07/2017 COMPARISON: 02/08/2016 HISTORY: Altered mental status CT DLP: 940.7 mGycm Automated exposure control for dose reduction was used. FINDINGS: Mild to moderate generalized degenerative change with a slightly greater frontal lobe component. [place] ventricular low attenuation is nonspecific. No midline shift or mass effect. Calvarium intact. Intracranial atherosclerotic changes noted. IMPRESSION: NONSPECIFIC WHITE MATTER CHANGES MOST LIKELY THE BASIS OF REMOTE MICROVASCULAR ISCHEMIA. IF THERE IS CONCERN FOR ACUTE ISCHEMIA CORRELATE WITH MRI. NO ACUTE HEMORRHAGE.
[2017-05-07] MEDS: ENOXAPARIN 40 MG/0.4 ML SYRINGE SQ SCH (12:15)
[2017-05-07 16:22] LABS: Appearance,Urine Clear (Clear); Bilirubin,Urine Negative (Negative); Glucose,Urine (UA) Negative (Negative); Ketones,Urine Negative (Negative); Leukocyte Esterase,Urine Negative (Negative); Nitrite,Urine Negative (Negative); Protein,Urine Negative (Negative); UA Billing (MACRO vs. MICRO) CHEM; Urobilinogen,Urine <2.0 mg/dL (<2.0)
[2017-05-07 16:44] LABS: Glucose,Whole Blood 134 mg/dL (75-99)
[2017-05-07] MEDS: metFORMIN 500 MG TAB PO SCH (16:53)
[2017-05-07 21:19] LABS: Glucose,Whole Blood 138 mg/dL (75-99)
[2017-05-07] MEDS: ATORVASTATIN 20 MG TAB PO SCH ×2 (22:19→22:44)
[2017-05-07] MEDS: MONTELUKAST 10 MG TAB PO SCH ×2 (22:19→22:41)
[2017-05-08 06:14] LABS: Glucose,Whole Blood 148 mg/dL (75-99)
[2017-05-08 06:15] LABS: Basophils % (A) 0 %; CH 30.9; Eosinophils % (A) 0 %; HDW 2.31; HGB 14.5 gm/dL (11.4-16.0); Luc # (Auto) 0.21; Luc % (Auto) 1; Lymphocytes # (A) 1.7 k/uL (1.0-4.8); Lymphocytes % (A) 10 %; MCH 30.5 pg (25.0-35.0); MCHC 32.3 g/dL (31.0-37.0); MCV 94.3 fL (80.0-100.0); Mean Platelet Volume 7.5; Monocytes % (A) 6 %; Neutrophils # (A) 13.5 k/uL (1.3-7.7); Neutrophils % (A) 82 %; RBC 4.77 m/uL (3.80-5.40); RDW 13.3 % (11.5-15.5); WBC 16.5 k/uL (3.8-10.6); WBC (Perox) 16.86
[2017-05-08] MEDS: metFORMIN 500 MG TAB PO SCH ×2 (06:20→17:17)
[2017-05-08] MEDS: INSULIN LISPRO (humaLOG) 300 UNIT/3 ML VIAL SQ SCH ×4 (06:20→22:24)
[2017-05-08 06:31] LABS: ALT 27 U/L (9-52); AST 29 U/L (14-36); Alkaline Phosphatase 57 U/L (38-126); Anion Gap 13 mmol/L; Blood Urea Nitrogen 37 mg/dL (7-17); Calcium 9.4 mg/dL (8.4-10.2); Carbon Dioxide 26 mmol/L (22-30); Chloride 104 mmol/L (98-107); Glucose 153 mg/dL (74-99); Non-African American GFR(MDRD) 60 (>60 ml/min/1.73 sqM); Potassium 3.7 mmol/L (3.5-5.1); Sodium 143 mmol/L (137-145); Total Bilirubin 0.8 mg/dL (0.2-1.3); Total Protein 6.8 g/dL (6.3-8.2)
[2017-05-08] MEDS: FOLIC ACID 1 MG TAB PO SCH (07:55)
[2017-05-08] MEDS: METOPROLOL TARTRATE 50 MG TAB PO SCH ×3 (07:55→22:24)
[2017-05-08] MEDS: ASPIRIN 325 MG TAB PO SCH (07:55)
[2017-05-08] MEDS: ESCITALOPRAM 10 MG TAB PO SCH (07:55)
[2017-05-08] MEDS: ENOXAPARIN 40 MG/0.4 ML SYRINGE SQ SCH (07:56)
--- NOTE | 2017-05-08 11:41 | P.PN ---
Subjective Patient is lying comfortably in bed. She barely recognizes me although she opens her eyes and says she was tomorrow. She has been my patient for many years and she has shown progressively worsening dementia. Clearly in the hospital she has become was. She came in with a non-Q wave myocardial infarction and is on appropriate treatment for Breath sounds are reduced bilaterally, heart sounds S1 and S2 are normal, blood pressure 123/80 mmHg him a she's afebrile normal respirations I made the following changes in her medications 1. I tapered off clonidine 2. I increase beta blockers, metoprolol 3. Status was switched to atorvastatin 20 mg by mouth daily Her blood pressure is controlled She has underlying atrial fibrillation but is not a candidate for anticoagulation she has a history of falls Obviously she is at high risk of stroke I would recommend medical management for non-Q-wave myocardial infarction I will stop the clonidine completely as an outpatient and instead use metoprolol 50 mrem 3 times a day This lady needs placement now at least on a temporary basis She will go to the medical floor I would reduce aspirin to 162 mg by mouth daily Objective - Vital Signs Vital signs: Vital Signs Temp 97 F L 05/08/17 07:56 Pulse 91 05/08/17 07:56 Resp 18 05/08/17 07:56 BP 123/80 05/08/17 07:56 Pulse Ox 92 L 05/08/17 07:56 Intake & Output 05/07/17 05/08/17 05/08/17 18:59 06:59 18:59 Intake Total 150 180 Output Total 200 Balance -50 180 Weight 47.5 kg Intake: Oral 150 180 Output: Urine 200 Other: Voiding Method Toilet Toilet Toilet Diaper Diaper Incontinent Incontinent # Voids 1 - Labs CBC & Chem 7: 05/08/17 05:35 05/08/17 05:35 Labs: Abnormal Lab Results - Last 24 Hours (Table) 05/07/17 05/07/17 05/07/17 Range/Units 11:41 16:41 21:16 WBC (3.8-10.6) k/uL Neutrophils # (1.3-7.7) k/uL BUN (7-17) mg/dL Glucose (74-99) mg/dL POC Glucose (mg/dL) 175 H 134 H 138 H (75-99) mg/dL 05/08/17 05/08/17 05/08/17 Range/Units 05:35 05:35 06:09 WBC 16.5 H (3.8-10.6) k/uL Neutrophils # 13.5 H (1.3-7.7) k/uL BUN 37 H (7-17) mg/dL Glucose 153 H (74-99) mg/dL POC Glucose (mg/dL) 148 H (75-99) mg/dL Microbiology - Last 24 Hours (Table) 05/07/17 14:57 Urine Culture - Preliminary Urine,Catheterized
[2017-05-08 11:42] LABS: Glucose,Whole Blood 147 mg/dL (75-99)
--- NOTE | 2017-05-08 13:18 | P.PN ---
Subjective This is a 81-year-old female with a known past medical history of dementia, hypertension, hyperlipidemia, chronic vertigo, anxiety, and diabetes mellitus. Patient was brought into the emergency room by her son for chest discomfort. ER reports that the patient told her son that she was having chest pain 3 times. She was found to have elevated troponin at 0.988 started on IV heparin and diagnosed with a non-ST elevated myocardial infarction. EKG had shown a general accelerated junctional rhythm with PVCs. She's been admitted to the sixth floor cardiology has been consulted. Chest x-ray showed signs of congestive heart failure. On 05/06/2017 Patient somnolant, responsive in no apparent distress, no new episodes of chest pain no shortness of breath at rest. Objective - Vital Signs Vital signs: Vital Signs Temp 97.2 F L 05/08/17 12:12 Pulse 97 05/08/17 12:12 Resp 18 05/08/17 12:12 BP 105/67 05/08/17 12:12 Pulse Ox 95 05/08/17 12:12 Intake & Output 05/07/17 05/08/17 05/08/17 18:59 06:59 18:59 Intake Total 150 180 Output Total 200 Balance -50 180 Weight 47.5 kg Intake: Oral 150 180 Output: Urine 200 Other: Voiding Method Toilet Toilet Toilet Diaper Diaper Incontinent Incontinent # Voids 1 - Exam In general patient is alert and oriented 3 in no apparent distress HEENT head normocephalic and atraumatic Neck is supple no JVD no goiter no lymphadenopathy Chest exam reveals a scattered crackles in both bases no wheezing Cardiac exam reveals regular heart sounds S1 and S2 no gallops no murmurs Abdomen is soft nontender no organomegaly with normal bowel sounds Extremity exam reveals no edema no cyanosis or clubbing - Labs CBC & Chem 7: 05/08/17 05:35 05/08/17 05:35 Labs: Abnormal Lab Results - Last 24 Hours (Table) 05/07/17 05/07/17 05/08/17 Range/Units 16:41 21:16 05:35 WBC 16.5 H (3.8-10.6) k/uL Neutrophils # 13.5 H (1.3-7.7) k/uL BUN (7-17) mg/dL Glucose (74-99) mg/dL POC Glucose (mg/dL) 134 H 138 H (75-99) mg/dL 05/08/17 05/08/17 05/08/17 Range/Units 05:35 06:09 11:23 WBC (3.8-10.6) k/uL Neutrophils # (1.3-7.7) k/uL BUN 37 H (7-17) mg/dL Glucose 153 H (74-99) mg/dL POC Glucose (mg/dL) 148 H 147 H (75-99) mg/dL Microbiology - Last 24 Hours (Table) 05/07/17 14:57 Urine Culture - Preliminary Urine,Catheterized Assessment and Plan Plan: 1. Acute Non-Q-wave myocardial infarction present on admission: Patient currently on IV heparin. She has been evaluated by cardiology the recommending medical management. They've adjusted her Lipitor. Per cardiology patient is a poor candidate for indoor because of her fluctuating blood pressures. Statin dose adjusted by cardiology 2. Atrial fibrillation with rapid ventricular response: Evaluated by cardiology they've increased her metoprolol dose to 50 mg twice a day. Patient not a good candidate for anticoagulation because of her risks of multiple falls 3. Hyperlipidemia continue statin 4. Acute diastolic CHF exacerbation: Patient started on IV Lasix. Chest x-ray shows evidence of fluid overload and BNP elevated at 7580. Echo pending 5. Diabetes mellitus type 2: Patient has been off of blood sugar medications for years. However, blood sugar of 332 on admission. Hemoglobin A1c of 6.9. Patient will be started on Lantus 10 units daily and continue sliding scale coverage, at this time no plans per cardiology for any intervention, will start metformin 500 mg by mouth twice daily Will discontinue Lantus and assess if patient can be on oral hypoglycemic agents alone. 6. Dementia, chronic however patient is having worsening mental status changes will check computed tomography scan of the brain without contrast Will consult neurology patient may need to be transferred to a shelter after this admission 7. Essential hypertension 8. Generalized anxiety disorder resume Xanax 9. Chronic vertigo resume Antivert 10. For DVT prophylaxis IV heparin has been discontinued will start lovenox 40 mg SQ daily consult clinical social worker and discharge planing for placement.
--- NOTE | 2017-05-08 13:22 | P.CNNES ---
History of Present Illness Consult date: 05/07/17 Reason for Consult: Patient seen for altered mental status and confusion. History of Present Illness: This patient is a 81-year-old right-handed white female was brought into the emergency room today for evaluation of chest pain. Apparently her son who is her primary caregiver noted that she was complaining of chest discomfort. Patient called her son 3 times complaining of chest discomfort. She has a history of underlying dementia and does require care at home. Due to the chest pain and chest discomfort the son decided to bring her to the emergency room at [facility] for further evaluation. She was seen in the ER by Dr. Bueno. She underwent a cardiology evaluation and was found to have a non- ST elevation myocardial infarction. She has a severely impaired left ventricular function less and 20% on echocardiogram study. She has a known history of underlying sick sinus syndrome as well. Cardiology made some adjustments in her medications. Due to the non-Q wave myocardial infarction she was recommended admission to the hospital. She was noted to be quite confused on admission. This evening she is showing some improvement in her overall mental status. She is going to undergo further evaluation from PT OT and will most likely require group home placement. The patient was sent for a computed tomography scan of the brain which revealed nonspecific white matter ischemic changes bilaterally. As noted she is being evaluated for underlying dementia as well. Patient is not a candidate for anticoagulation due to increased risk of falls given her a history of multiple falls. She did have evidence of atrial fibrillation with RVR on her EKG. As noted cardiology is not recommending anticoagulation for this patient. She is currently on atorvastatin 20 mg daily. Patient becomes disoriented and currently has a sitter at bedside. Due to her altered mentation and complex past medical history neurology is now been consulted for further evaluation and recommendations. Her overall prognosis at this time remains very guarded. Review of Systems Constitutional: Denies chills, Denies fever Eyes: denies blurred vision, denies pain Ears, nose, mouth and throat: Denies headache, Denies sore throat Cardiovascular: Denies chest pain, Denies shortness of breath Respiratory: Denies cough Gastrointestinal: Denies abdominal pain, Denies diarrhea, Denies nausea, Denies vomiting Genitourinary: Denies dysuria, Denies hematuria Musculoskeletal: Denies myalgias Integumentary: Denies pruritus, Denies rash Neurological: Reports change in mentation, Reports change in speech, Reports confusion, Reports memory loss, Denies numbness, Denies weakness Psychiatric: Denies anxiety, Denies depression Endocrine: Denies fatigue, Denies weight change Past Medical History Past Medical History: Diabetes Mellitus, GERD/Reflux, Hyperlipidemia, Hypertension, Osteoarthritis (OA), Pneumonia Additional Past Medical History / Comment(s): Recently diagnosed with dementia, periods of severe confusion, chronic vertigo, NIDDM type II, nonsustained VT, UTIs, chronic venous insufficiency, L eye closes especially when pt tired, anemia, rosacia, History of Any Multi-Drug Resistant Organisms: None Reported Past Surgical History: Appendectomy, Heart Catheterization, Hysterectomy, Orthopedic Surgery Additional Past Surgical History / Comment(s): 04/24/15 cardiac cath-clean, loop recorder, orif rt ankle-plate and screws, bilateral blephoplasty, colonoscopy Past Anesthesia/Blood Transfusion Reactions: No Reported Reaction Type of Cardiac Device: Permanent Pacemaker Device Placement Date:: UNK Smoking Status: Former smoker - Past Family History Father Additional Family Medical History / Comment(s): lung disease Mother History Unknown: Yes Medications and Allergies Home Medications Medication Instructions Recorded Confirmed Type Aspirin 81 mg PO DAILY 02/01/14 05/06/17 History Simvastatin [Zocor] 20 mg PO HS 02/01/14 05/06/17 History ALPRAZolam [Xanax] 0.25 mg PO BID PRN 04/02/15 05/06/17 History Montelukast [Singulair] 10 mg PO DAILY 04/02/15 05/06/17 History cloNIDine HCL [Clonidine HCl] 0.1 mg PO TID 12/29/15 05/06/17 History Escitalopram [Lexapro] 10 mg PO DAILY 05/06/17 05/06/17 History Folic Acid 1 mg PO DAILY 05/06/17 05/06/17 History Meclizine [Antivert] 25 mg PO TID PRN 05/06/17 05/06/17 History Allergies Allergy/AdvReac Type Severity Reaction Status Date / Time azithromycin [From Zithromax] Allergy Unknown Verified 05/06/17 08:06 clindamycin Allergy Unknown Verified 05/06/17 08:06 clindamycin HCl Allergy Unknown Verified 05/06/17 08:06 [From Cleocin] clindamycin palmitate HCl Allergy Unknown Verified 05/06/17 08:06 [From Cleocin] clindamycin phosphate Allergy Unknown Verified 05/06/17 08:06 [From Cleocin] codeine Allergy Unknown Verified 05/06/17 08:06 cortisone [Cortisone] Allergy Unknown Verified 05/06/17 08:06 lincomycin HCl Allergy Unknown Verified 05/06/17 08:06 [From Lincocin] meperidine HCl [From Demerol] Allergy Unknown Verified 05/06/17 08:06 Penicillins Allergy Unknown Verified 05/06/17 08:06 prednisone Allergy Unknown Verified 05/06/17 08:06 Physical Examination - Vital Signs Vital Signs: Vital Signs Temp Pulse Pulse Resp BP BP Pulse Ox 05/07/17 07:46 97 F L 106 H 20 103/76 91 L 05/07/17 04:00 96.9 F L 103 H 18 106/64 95 05/07/17 00:00 97 F L 93 18 127/84 94 L 05/06/17 20:00 97 F L 109 H 18 113/81 94 L 05/06/17 16:29 97.9 F 102 H 17 90/69 93 L Intake and Output 05/06/17 05/07/17 05/07/17 22:59 06:59 14:59 Intake Total 376.174 150 Balance 376.174 150 Intake: Intake, IV Titration 376.174 Amount Heparin Sodium,Porcine/ 376.174 D5w Pmx 25,000 unit In Dextrose/Water 1 500ml. bag @ 12 UNITS/KG/HR 15. 24 mls/hr IV .Q24H [facility] Rx #:[id number] Oral 150 Other: Voiding Method Toilet Toilet Toilet # Voids 1 4 Weight 52 kg - Constitutional General appearance: average body habitus, cooperative - EENT EENT: PERRL, mucous membranes moist - Respiratory Respiratory: lungs clear, normal breath sounds - Cardiovascular Cardiovascular: regular rate, normal S1, normal S2 Extremities: no peripheral edema bilaterally - Gastrointestinal Gastrointestinal: normoactive bowel sounds - Integumentary Integumentary: normal - Neurologic Cranial nerve examination: PERRL, VFF, V1/V2/V3 grossly intact, face symmetric, intact gag reflex, intact corneal reflex, normal palatal elevation Speech examination: intact Sensorimotor examination: intact Motor examination - right side: 3/5: biceps, triceps, wrist flexion, wrist extension, associate programmer analyst, hip flexors, knee extensors, dorsiflexion, toe extension (EHL) , plantarflexion Motor examination - left side: 3/5: biceps, triceps, wrist flexion, wrist extension, associate programmer analyst, hip flexors, knee extensors, dorsiflexion, toe extension (EHL) , plantarflexion Detailed sensory examination: intact Reflex and gait examination: intact Reflexes: 1+: ankle, bicep, knee, tricep - Musculoskeletal Musculoskeletal: no pain - Psychiatric Psychiatric: mood/affect appropriate, cooperative Results - Laboratory Findings CBC and BMP: 05/08/17 05:35 05/08/17 05:35 Abnormal Lab Findings: Abnormal Labs 05/06/17 05/06/17 05/06/17 03:53 04:26 04:26 WBC 14.6 H RBC 5.78 H Hgb 17.3 H Hct 55.8 H Plt Count 458 H Neutrophils # 11.4 H PT 12.5 H INR 1.3 H APTT Chloride Carbon Dioxide Glucose POC Glucose (mg/dL) 264 H Hemoglobin A1c Total Creatine Kinase CK-MB (CK-2) Troponin I Total Protein HDL Cholesterol 05/06/17 05/06/17 05/06/17 04:26 04:26 04:26 WBC RBC Hgb Hct Plt Count Neutrophils # PT INR APTT Chloride 108 H Carbon Dioxide 17 L Glucose 305 H POC Glucose (mg/dL) Hemoglobin A1c 6.9 H Total Creatine Kinase 173 H CK-MB (CK-2) 5.1 H* Troponin I 0.988 H* Total Protein 8.3 H HDL Cholesterol 05/06/17 05/06/17 05/06/17 08:35 11:31 11:31 WBC RBC Hgb Hct Plt Count Neutrophils # PT INR APTT 58.1 H Chloride Carbon Dioxide Glucose POC Glucose (mg/dL) 332 H Hemoglobin A1c Total Creatine Kinase 151 H CK-MB (CK-2) 6.4 H* Troponin I 1.900 H* Total Protein HDL Cholesterol 05/06/17 05/06/17 05/06/17 11:35 16:35 16:47 WBC RBC Hgb Hct Plt Count Neutrophils # PT INR APTT Chloride Carbon Dioxide Glucose POC Glucose (mg/dL) 285 H 105 H Hemoglobin A1c Total Creatine Kinase 176 H CK-MB (CK-2) 4.8 H* Troponin I 2.510 H* Total Protein HDL Cholesterol 05/06/17 05/07/17 05/07/17 21:31 05:37 05:37 WBC RBC Hgb Hct Plt Count Neutrophils # PT INR APTT 54.9 H Chloride Carbon Dioxide Glucose POC Glucose (mg/dL) 144 H Hemoglobin A1c Total Creatine Kinase CK-MB (CK-2) Troponin I Total Protein HDL Cholesterol 72 H 05/07/17 05/07/17 06:31 11:41 WBC RBC Hgb Hct Plt Count Neutrophils # PT INR APTT Chloride Carbon Dioxide Glucose POC Glucose (mg/dL) 153 H 175 H Hemoglobin A1c Total Creatine Kinase CK-MB (CK-2) Troponin I Total Protein HDL Cholesterol Assessment and Plan (1) Acute encephalopathy Status: Acute Code(s): G93.40 - ENCEPHALOPATHY, UNSPECIFIED (2) Dementia Status: Acute Code(s): F03.90 - UNSPECIFIED DEMENTIA WITHOUT BEHAVIORAL DISTURBANCE (3) NSTEMI (non-ST elevated myocardial infarction) Status: Acute Code(s): I21.4 - NON-ST ELEVATION (NSTEMI) MYOCARDIAL INFARCTION (4) Near syncope Status: Acute Code(s): R55 - SYNCOPE AND COLLAPSE Plan: This patient is a 81-year-old female who was admitted to hospital for evaluation of altered mental status and confusion. She underwent a computed tomography scan of the brain in the emergency room which was negative for any evidence of acute stroke or hemorrhage. She has a history of underlying dementia which has been gradually worsening. She also has atrial fibrillation and is not a candidate for long-term anticoagulation as per cardiology's recommendation. Patient has shown slight improvement with her mentation this evening. We will continue close neurological follow-up for the patient. Her clinical history is consistent with an acute encephalopathy that is multifactorial. We will continue close neurological follow-up of this patient during this admission. Her overall prognosis at this time remains very guarded. Time with Patient: Greater than 30
[2017-05-08] MEDS: LORazepam 2 MG/ML SYRINGE IV PRN (15:15)
[2017-05-08 16:37] LABS: Glucose,Whole Blood 152 mg/dL (75-99)
[2017-05-08] MEDS: ATORVASTATIN 20 MG TAB PO SCH (19:31)
[2017-05-08] MEDS: MONTELUKAST 10 MG TAB PO SCH (19:31)
[2017-05-08 20:48] LABS: Glucose,Whole Blood 145 mg/dL (75-99)
[2017-05-09] MEDS: LORazepam 2 MG/ML SYRINGE IV PRN (00:34)
--- NOTE | 2017-05-09 00:49 | P.PN ---
Subjective This patient is a 81-year-old female admitted with altered mental status and confusion. She is noted today to have ongoing symptoms of underlying cognitive impairment and dementia. She is able to answer only a few questions appropriately. We will continue close neurological follow-up with this patient during this admission. The patient is laying in bed and is quite confused this evening. She is not sure why she was admitted to the hospital. Her speech is fluent with no evidence of any aphasia. We will continue close neurological workup for this patient with altered mental status. She does have history of underlying dementia. Her overall prognosis at this time remains guarded. Objective - Vital Signs Vital signs: Vital Signs Temp 97.2 F L 05/08/17 19:29 Pulse 93 05/08/17 19:29 Resp 18 05/08/17 19:40 BP 123/87 05/08/17 19:29 Pulse Ox 94 L 05/08/17 19:29 Intake & Output 05/08/17 05/08/17 05/09/17 06:59 18:59 06:59 Intake Total 300 Balance 300 Weight 47.5 kg Intake: Oral 300 Other: Voiding Method Toilet Toilet Toilet Diaper Diaper Diaper Incontinent Incontinent Incontinent # Voids 1 - Exam Physical examination: PHYSICAL EXAMINATION: Patient is resting comfortably in bed. VITAL SIGNS: Blood pressure is [123/87]. Heart rate is [93]. Respiration is [18] . Temperature is [97.2]. HEENT: Head is atraumatic, neck is supple, there were no carotid bruits. CHEST: Lungs are clear to auscultation and percussion. CARDIAC: S1, S2 normal rate and rhythm. There is no murmur. ABDOMEN: Soft and nontender. Bowel sounds are present. EXTREMITIES: There is no pedal edema. Peripheral pulses are present. Neurological examination: Patient is awake alert and oriented 1 only. Her speech is slow but fluent. Her memory and intellectual functions are impaired. Her remaining neurological examination is unchanged from yesterday. - Labs CBC & Chem 7: 05/08/17 05:35 05/08/17 05:35 Labs: Abnormal Lab Results - Last 24 Hours (Table) 05/08/17 05/08/17 05/08/17 Range/Units 05:35 05:35 06:09 WBC 16.5 H (3.8-10.6) k/uL Neutrophils # 13.5 H (1.3-7.7) k/uL BUN 37 H (7-17) mg/dL Glucose 153 H (74-99) mg/dL POC Glucose (mg/dL) 148 H (75-99) mg/dL 05/08/17 05/08/17 05/08/17 Range/Units 11:23 16:35 20:46 WBC (3.8-10.6) k/uL Neutrophils # (1.3-7.7) k/uL BUN (7-17) mg/dL Glucose (74-99) mg/dL POC Glucose (mg/dL) 147 H 152 H 145 H (75-99) mg/dL Microbiology - Last 24 Hours (Table) 05/07/17 14:57 Urine Culture - Final Urine,Catheterized Assessment and Plan (1) Acute encephalopathy Status: Acute Code(s): G93.40 - ENCEPHALOPATHY, UNSPECIFIED (2) Dementia Status: Acute Code(s): F03.90 - UNSPECIFIED DEMENTIA WITHOUT BEHAVIORAL DISTURBANCE (3) NSTEMI (non-ST elevated myocardial infarction) Status: Acute Code(s): I21.4 - NON-ST ELEVATION (NSTEMI) MYOCARDIAL INFARCTION (4) Near syncope Status: Acute Code(s): R55 - SYNCOPE AND COLLAPSE Plan: This patient is a 81-year-old female who was admitted to hospital for evaluation of altered mental status and confusion. She underwent a computed tomography scan of the brain in the emergency room which was negative for any evidence of acute stroke or hemorrhage. She has a history of underlying dementia which has been gradually worsening. She also has atrial fibrillation and is not a candidate for long-term anticoagulation as per cardiology's recommendation. Patient has shown slight improvement with her mentation this evening. We will continue close neurological follow-up for the patient. Her clinical history is consistent with an acute encephalopathy that is multifactorial. Patient continues remained confused late this evening. She is able to answer only simple questions. She likely has some degree of underlying dementia. We will continue to monitor progress closely during this admission. We will continue close neurological follow-up of this patient during this admission. Her overall prognosis at this time remains very guarded.
[2017-05-09 05:39] LABS: Glucose,Whole Blood 177 mg/dL (75-99)
[2017-05-09] MEDS: metFORMIN 500 MG TAB PO SCH ×3 (06:18→17:34)
[2017-05-09] MEDS: INSULIN LISPRO (humaLOG) 300 UNIT/3 ML VIAL SQ SCH ×4 (06:18→20:51)
[2017-05-09 06:50] LABS: Basophils # (A) 0.1 k/uL (0-0.2); Basophils % (A) 0 %; CH 31.1; CHCM 32.4; Eosinophils % (A) 0 %; HCT 45.8 % (34.0-46.0); HDW 2.31; HGB 14.3 gm/dL (11.4-16.0); Luc # (Auto) 0.21; Luc % (Auto) 1; Lymphocytes # (A) 1.6 k/uL (1.0-4.8); Lymphocytes % (A) 8 %; MCH 30.1 pg (25.0-35.0); MCHC 31.2 g/dL (31.0-37.0); MCV 96.3 fL (80.0-100.0); Mean Platelet Volume 7.8; Monocytes # (A) 0.9 k/uL (0-1.0); Monocytes % (A) 4 %; Neutrophils # (A) 16.8 k/uL (1.3-7.7); Neutrophils % (A) 86 %; RBC 4.75 m/uL (3.80-5.40); RDW 13.2 % (11.5-15.5); WBC 19.4 k/uL (3.8-10.6); WBC (Perox) 19.96
[2017-05-09 06:55] LABS: ALT 32 U/L (9-52); AST 34 U/L (14-36); Alkaline Phosphatase 55 U/L (38-126); Anion Gap 17 mmol/L; Blood Urea Nitrogen 46 mg/dL (7-17); Calcium 9.9 mg/dL (8.4-10.2); Carbon Dioxide 19 mmol/L (22-30); Chloride 105 mmol/L (98-107); Glucose 209 mg/dL (74-99); Non-African American GFR(MDRD) >60 (>60 ml/min/1.73 sqM); Sodium 141 mmol/L (137-145); Total Bilirubin 1.3 mg/dL (0.2-1.3); Total Protein 7.2 g/dL (6.3-8.2)
[2017-05-09] MEDS: ASPIRIN 81 MG PO SCH (08:59)
[2017-05-09] MEDS: ENOXAPARIN 40 MG/0.4 ML SYRINGE SQ SCH (08:59)
[2017-05-09] MEDS: ESCITALOPRAM 10 MG TAB PO SCH (08:59)
[2017-05-09] MEDS: METOPROLOL TARTRATE 50 MG TAB PO SCH ×3 (08:59→20:52)
--- NOTE | 2017-05-09 11:01 | P.PN ---
Subjective This is a 81-year-old female with a known past medical history of dementia, hypertension, hyperlipidemia, chronic vertigo, anxiety, and diabetes mellitus. Patient was brought into the emergency room by her son for chest discomfort. ER reports that the patient told her son that she was having chest pain 3 times. She was found to have elevated troponin at 0.988 started on IV heparin and diagnosed with a non-ST elevated myocardial infarction. EKG had shown a general accelerated junctional rhythm with PVCs. She's been admitted to the sixth floor cardiology has been consulted. Chest x-ray showed signs of congestive heart failure. 05/09/2017 patient still confused and having episodes of somnolence. White count is up to 19.4. No fever. Patient keeps taking all of her clothes off. She is receiving restrained to the bed. No apparent distress. She denies chest pain. Objective - Vital Signs Vital signs: Vital Signs Temp 97.4 F L 05/09/17 04:00 Pulse 108 H 05/09/17 04:00 Resp 18 05/09/17 04:00 BP 125/86 05/09/17 04:00 Pulse Ox 94 L 05/09/17 04:00 Intake & Output 05/08/17 05/09/17 05/09/17 18:59 06:59 18:59 Intake Total 300 0 Balance 300 0 Weight 42.5 kg Intake: Oral 300 0 Other: Voiding Method Toilet Toilet Diaper Diaper Incontinent Incontinent # Voids 2 - Exam Head normocephalic Neck supple Lungs clear to auscultation bilaterally no wheezing or crackles Heart regular rate and rhythm S1-S2, no rub or gallop Abdomen is soft nontender nondistended positive bowel sounds no hepatosplenomegaly Extremities no edema Neuro sleepy but arousable and confused. Naked lying in bed - Labs CBC & Chem 7: 05/09/17 06:01 05/09/17 06:05 Labs: Abnormal Lab Results - Last 24 Hours (Table) 05/08/17 05/08/17 05/08/17 Range/Units 11:23 16:35 20:46 WBC (3.8-10.6) k/uL Neutrophils # (1.3-7.7) k/uL Carbon Dioxide (22-30) mmol/L BUN (7-17) mg/dL Glucose (74-99) mg/dL POC Glucose (mg/dL) 147 H 152 H 145 H (75-99) mg/dL 05/09/17 05/09/17 05/09/17 Range/Units 05:38 06:01 06:05 WBC 19.4 H (3.8-10.6) k/uL Neutrophils # 16.8 H (1.3-7.7) k/uL Carbon Dioxide 19 L (22-30) mmol/L BUN 46 H (7-17) mg/dL Glucose 209 H (74-99) mg/dL POC Glucose (mg/dL) 177 H (75-99) mg/dL Microbiology - Last 24 Hours (Table) 05/07/17 14:57 Urine Culture - Final Urine,Catheterized Assessment and Plan Plan: 1. Acute Non-Q-wave myocardial infarction present on admission: She has been evaluated by cardiology the recommending medical management. They've adjusted her Lipitor. Per cardiology patient is a poor candidate for imdur because of her fluctuating blood pressures. Statin dose adjusted by cardiology 2. Atrial fibrillation with rapid ventricular response: Evaluated by cardiology they've increased her metoprolol dose to 50 mg twice a day. Patient not a good candidate for anticoagulation because of her risks of multiple falls 3. Hyperlipidemia continue statin 4. Acute systolic CHF exacerbation: Patient started on IV Lasix. Chest x-ray shows evidence of fluid overload and BNP elevated at 7580. Echo shows an EF of less than 20%. Patient is currently off of Lasix 5. Diabetes mellitus type 2: Patient has been off of blood sugar medications for years. However, blood sugar of 332 on admission. Hemoglobin A1c of 6.9. Patient currently on metformin. Blood sugars are still the 200s. We'll add glipizide 2.5 mg daily 6. Dementia 7. Essential hypertension 8. Generalized anxiety disorder resume Xanax 9. Chronic vertigo resume Antivert 10. Leukocytosis of unclear etiology. Repeat chest x-ray and urinalysis 11. Mental status changes with somnolence and confusion area and neurology is following. Computed tomography scan of brain showed no acute changes. Psychiatry will also be consulted. Continue to monitor DVT prophylaxis Lovenox Consult has been placed for social work for possible ECF placement. Consult PT OT Transfer patient to regular medical floor I performed an examination of the patient and discussed their management with the physician Planning Engineer. I have reviewed the Physician Planning Engineer's notes and agree with the documented findings and plan of care
[2017-05-09 11:40] LABS: Glucose,Whole Blood 176 mg/dL (75-99)
--- NOTE | 2017-05-09 12:26 | XR ---
EXAMINATION TYPE: XR chest 1V portable DATE OF EXAM: 05/09/2017 COMPARISON: 05/06/2017 HISTORY: Leukocytosis TECHNIQUE: Single frontal view of the chest is obtained. FINDINGS: There is no focal air space opacity, pleural effusion, or pneumothorax seen. The cardiac silhouette size is within normal limits. The osseous structures are intact. Stable subcentimeter ri ght midlung nodules noted. Previously seen pulmonary vascular congestion has improved in the interim. Mild cardiac enlargement single lead left-sided cardiac device are noted. Surgical clips are seen at the gastroesophageal junction. Tortuosity of the thoracic aorta is noted. No new focal consolidation is seen. IMPRESSION: No new focal consolidation. Improvement of the previously seen pulmonary vascular conges tion.
[2017-05-09] MEDS: FOLIC ACID 1 MG TAB PO SCH (12:44)
--- NOTE | 2017-05-09 15:21 | P.PN ---
Subjective Principal diagnosis: Non-STEMI This is an 81-year-old female with past medical history of dementia, hypertension, hyperlipidemia, chronic vertigo, anxiety, diabetes, who was brought to the emergency center with chest discomfort. She ruled in for non-Q- wave myocardial infarction. Maximal medical therapy was recommended. Patient this morning continues to be confused. White blood cell count 19,000 this morning. Patient was lying naked in her bed, continues taking her clothes off. From cardiology's perspective, we'll continue current medications. Objective - Vital Signs Vital signs: Vital Signs Temp 97.1 F L 05/09/17 08:00 Pulse 102 H 05/09/17 12:00 Resp 18 05/09/17 08:00 BP 138/95 05/09/17 08:00 Pulse Ox 95 05/09/17 08:00 Intake & Output 05/08/17 05/09/17 05/09/17 18:59 06:59 18:59 Intake Total 300 0 Balance 300 0 Weight 42.5 kg Intake: Oral 300 0 Other: Voiding Method Toilet Toilet Diaper Diaper Diaper Incontinent Incontinent Incontinent # Voids 2 2 - Exam PHYSICAL EXAMINATION: HEENT: Head is atraumatic, normocephalic. Pupils equal, round. Neck is supple. There is no elevated jugular venous pressure. HEART EXAMINATION: Heart S1, S2 normal. No murmur or gallop heard. CHEST EXAMINATION: Lungs are clear to auscultation and precussion. No chest wall tenderness is noted on palpation or with deep breathing. ABDOMEN: Soft, nontender. Bowel sounds are heard. No organomegaly noted. EXTREMITIES: 2+ peripheral pulses with no evidence of peripheral edema and no calf tenderness noted. NEUROLOGIC [patient is confused - Labs CBC & Chem 7: 05/09/17 06:01 05/09/17 06:05 Labs: Abnormal Lab Results - Last 24 Hours (Table) 05/08/17 05/08/17 05/09/17 Range/Units 16:35 20:46 05:38 WBC (3.8-10.6) k/uL Neutrophils # (1.3-7.7) k/uL Carbon Dioxide (22-30) mmol/L BUN (7-17) mg/dL Glucose (74-99) mg/dL POC Glucose (mg/dL) 152 H 145 H 177 H (75-99) mg/dL 05/09/17 05/09/17 05/09/17 Range/Units 06:01 06:05 11:34 WBC 19.4 H (3.8-10.6) k/uL Neutrophils # 16.8 H (1.3-7.7) k/uL Carbon Dioxide 19 L (22-30) mmol/L BUN 46 H (7-17) mg/dL Glucose 209 H (74-99) mg/dL POC Glucose (mg/dL) 176 H (75-99) mg/dL Microbiology - Last 24 Hours (Table) 05/07/17 14:57 Urine Culture - Final Urine,Catheterized Assessment and Plan (1) Chronic a-fib Status: Acute (2) Hyperlipemia Status: Acute (3) HTN (hypertension) Status: Acute (4) Mental status change Status: Acute (5) Dementia Status: Acute (6) NSTEMI (non-ST elevated myocardial infarction) Status: Acute (7) Diabetes Status: Acute Plan: From cardiology's perspective, we'll continue maximal medical therapy. Patient may be transferred to MedSurg unit when it's okay with the primary. We will follow on an as-needed basis only, please do not hesitate to call with any questions. DNP note has been reviewed, I agree with a documented findings and plan of care. Patient was seen and examined.
[2017-05-09 17:01] LABS: Glucose,Whole Blood 280 mg/dL (75-99)
[2017-05-09 20:45] LABS: Glucose,Whole Blood 165 mg/dL (75-99)
[2017-05-09] MEDS: MONTELUKAST 10 MG TAB PO SCH (20:52)
[2017-05-09] MEDS: ATORVASTATIN 20 MG TAB PO SCH (20:52)
[2017-05-10 07:10] LABS: Glucose,Whole Blood 209 mg/dL (75-99)
[2017-05-10] MEDS: INSULIN LISPRO (humaLOG) 300 UNIT/3 ML VIAL SQ SCH ×4 (08:52→23:00)
[2017-05-10] MEDS: ASPIRIN 81 MG PO SCH (08:53)
[2017-05-10] MEDS: metFORMIN 500 MG TAB PO SCH ×2 (08:53→18:06)
[2017-05-10] MEDS: METOPROLOL TARTRATE 50 MG TAB PO SCH ×3 (08:53→21:46)
[2017-05-10] MEDS: ESCITALOPRAM 10 MG TAB PO SCH (08:53)
[2017-05-10] MEDS: ENOXAPARIN 40 MG/0.4 ML SYRINGE SQ SCH (08:55)
[2017-05-10 11:59] LABS: Glucose,Whole Blood 191 mg/dL (75-99)
--- NOTE | 2017-05-10 14:13 | P.PN ---
Subjective Patient was seen and evaluated by me today. She was awake and alert. She appeared very confused. She was not engaging or answering any of my questions. She was turning her head to the other side while I was talking to her. She did have an episode of agitation last night requiring Ativan and a little bit after midnight. Today, she appeared very lethargic. No family members at bedside. According to nursing staff patient is usually independent and lives by her own. She was still driving her car before coming to the hospital. Objective - Vital Signs Vital signs: Vital Signs Temp 97.7 F 05/10/17 07:00 Pulse 95 05/10/17 08:00 Resp 18 05/10/17 08:00 BP 118/80 05/10/17 07:00 Pulse Ox 98 05/10/17 07:00 Intake & Output 05/09/17 05/10/17 05/10/17 18:59 06:59 18:59 Intake Total 0 Balance 0 Intake: Oral 0 Other: Voiding Method Diaper Diaper Diaper Incontinent Incontinent Incontinent # Voids 2 2 1 - Exam General: The patient is awake and alert, in no distress Eye: there is normal conjunctiva bilaterally. Neck: The neck is supple, there is no JVD. Cardiovascular: Normal S1-S2, no S3-S4, no murmurs. Respiratory: Lungs clear to auscultation bilaterally Gastrointestinal: Abdomen is soft, nontender Musculoskeletal: There is no pedal edema. Neurological:. Speech is normal. Skin: Skin is warm and dry - Labs CBC & Chem 7: 05/09/17 06:01 05/09/17 06:05 Labs: Abnormal Lab Results - Last 24 Hours (Table) 05/09/17 05/09/17 05/10/17 Range/Units 16:39 20:44 07:08 POC Glucose (mg/dL) 280 H 165 H 209 H (75-99) mg/dL 05/10/17 Range/Units 11:57 POC Glucose (mg/dL) 191 H (75-99) mg/dL Assessment and Plan Plan: 1. Acute Non-Q-wave myocardial infarction present on admission: She has been evaluated by cardiology the recommending medical management. 2. Atrial fibrillation with rapid ventricular response: Evaluated by cardiology they've increased her metoprolol dose to 50 mg twice a day. Patient not a good candidate for anticoagulation because of her risks of multiple falls 3. Hyperlipidemia continue statin 4. Acute systolic CHF exacerbation: Patient started on Lasix. Chest x-ray shows evidence of fluid overload and BNP elevated at 7580. Echo shows an EF of less than 20%. 5. Diabetes mellitus type 2: Hemoglobin A1c of 6.9. Patient currently on metformin. Blood sugars are still the 200s. We'll add glipizide 2.5 mg daily 6. Dementia/underlying cognitive impairment 7. Essential hypertension 8. Generalized anxiety disorder resume Xanax 9. Acute encephalopathy/hospital-acquired delirium, Mental status changes with somnolence and confusion, neurology is following. Computed tomography scan of brain showed no acute changes. Psychiatry consulted. Continue to monitor. I advised to have full use of benzodiazepine DVT prophylaxis Lovenox Consult has been placed for social work for possible ECF placement. Consult PT OT
[2017-05-10] MEDS: FOLIC ACID 1 MG TAB PO SCH (14:37)
[2017-05-10] MEDS ORDERED: LORazepam 2 MG/ML SYRINGE IM STA (16:15)
[2017-05-10 17:00] LABS: Glucose,Whole Blood 204 mg/dL (75-99)
[2017-05-10 20:42] LABS: Glucose,Whole Blood 186 mg/dL (75-99)
[2017-05-10] MEDS ORDERED: LORazepam 2 MG/ML SYRINGE IV STA (21:10)
[2017-05-10] MEDS: ATORVASTATIN 20 MG TAB PO SCH (21:46)
[2017-05-10] MEDS: MONTELUKAST 10 MG TAB PO SCH (21:46)
--- NOTE | 2017-05-11 01:07 | P.PN ---
Subjective This patient is a 81-year-old female admitted with altered mental status and confusion. She is noted today to have ongoing symptoms of underlying cognitive impairment and dementia. She is able to answer only a few questions appropriately. We will continue close neurological follow-up with this patient during this admission. The patient is laying in bed and is quite confused this evening. She is not sure why she was admitted to the hospital. She was noted to continue due to mistreated evidence of confusion early this morning. As noted she did have an acute non-Q wave myocardial infarction on admission. She is being evaluated and treated by cardiology for this condition. She does have evidence of atrial fibrillation but is not a candidate for long-term anticoagulation due to her multiple risk of fall. Overall the patient seems to be doing about the same today. She does have evidence of underlying dementia as well. We will continue current neurological evaluation and monitoring of this patient. Her overall prognosis at this time remains very guarded. Her speech is fluent with no evidence of any aphasia. We will continue close neurological workup for this patient with altered mental status. She does have history of underlying dementia. Her overall prognosis at this time remains guarded. Objective - Vital Signs Vital signs: Vital Signs Temp 98.2 F 05/10/17 23:00 Pulse 109 H 05/10/17 21:52 Resp 14 05/10/17 21:52 BP 130/86 05/10/17 21:52 Pulse Ox 99 05/10/17 23:00 Intake & Output 05/10/17 05/10/17 05/11/17 06:59 18:59 06:59 Other: Voiding Method Diaper Diaper Incontinent Incontinent # Voids 2 2 - Exam Physical examination: PHYSICAL EXAMINATION: Patient is resting comfortably in bed. VITAL SIGNS: Blood pressure is [123/87]. Heart rate is [93]. Respiration is [18] . Temperature is [97.2]. HEENT: Head is atraumatic, neck is supple, there were no carotid bruits. CHEST: Lungs are clear to auscultation and percussion. CARDIAC: S1, S2 normal rate and rhythm. There is no murmur. ABDOMEN: Soft and nontender. Bowel sounds are present. EXTREMITIES: There is no pedal edema. Peripheral pulses are present. Neurological examination: Patient is awake alert and oriented 1 only. Her speech is slow but fluent. Her memory and intellectual functions are impaired. Her remaining neurological examination is unchanged from yesterday. - Labs CBC & Chem 7: 05/09/17 06:01 05/09/17 06:05 Labs: Abnormal Lab Results - Last 24 Hours (Table) 05/10/17 05/10/17 05/10/17 Range/Units 07:08 11:57 16:59 POC Glucose (mg/dL) 209 H 191 H 204 H (75-99) mg/dL 05/10/17 Range/Units 20:21 POC Glucose (mg/dL) 186 H (75-99) mg/dL Assessment and Plan (1) Acute encephalopathy Status: Acute Code(s): G93.40 - ENCEPHALOPATHY, UNSPECIFIED (2) Dementia Status: Acute Code(s): F03.90 - UNSPECIFIED DEMENTIA WITHOUT BEHAVIORAL DISTURBANCE (3) NSTEMI (non-ST elevated myocardial infarction) Status: Acute Code(s): I21.4 - NON-ST ELEVATION (NSTEMI) MYOCARDIAL INFARCTION (4) Near syncope Status: Acute Code(s): R55 - SYNCOPE AND COLLAPSE Plan: This patient is a 81-year-old female who was admitted to hospital for evaluation of altered mental status and confusion. She underwent a computed tomography scan of the brain in the emergency room which was negative for any evidence of acute stroke or hemorrhage. She has a history of underlying dementia which has been gradually worsening. She also has atrial fibrillation and is not a candidate for long-term anticoagulation as per cardiology's recommendation. Patient has shown slight improvement with her mentation this evening. We will continue close neurological follow-up for the patient. Her clinical history is consistent with an acute encephalopathy that is multifactorial. Patient continues remained confused late this evening. She is able to answer only simple questions. She is being treated by cardiology for acute non-Q-wave myocardial infarction. She has been having episodes of mild to moderate degree of confusion especially at night. She has been given some Ativan for this condition as well. She likely has some degree of underlying dementia. We will continue to monitor progress closely during this admission. We will continue close neurological follow-up of this patient during this admission. Her overall prognosis at this time remains very guarded.
[2017-05-11 07:52] LABS: Glucose,Whole Blood 221 mg/dL (75-99)
[2017-05-11] MEDS: INSULIN LISPRO (humaLOG) 300 UNIT/3 ML VIAL SQ SCH ×4 (09:12→21:34)
[2017-05-11] MEDS: ASPIRIN 81 MG PO SCH (09:37)
[2017-05-11] MEDS: metFORMIN 500 MG TAB PO SCH ×2 (09:37→18:00)
[2017-05-11] MEDS: ESCITALOPRAM 10 MG TAB PO SCH (09:38)
[2017-05-11] MEDS: METOPROLOL TARTRATE 50 MG TAB PO SCH ×3 (09:38→20:38)
[2017-05-11] MEDS: ENOXAPARIN 40 MG/0.4 ML SYRINGE SQ SCH (10:08)
--- NOTE | 2017-05-11 11:33 | P.PN ---
Subjective there is no significant improvement in her overall condition today. patient is awake but refused to open her eyes. She is not answering any of my questions appropriately. she is not eating or drinking either. Objective - Vital Signs Vital signs: Vital Signs Temp 98.4 F 05/11/17 07:25 Pulse 122 H 05/11/17 10:20 Resp 16 05/11/17 10:20 BP 135/71 05/11/17 07:25 Pulse Ox 98 05/11/17 07:25 Intake & Output 05/10/17 05/11/17 05/11/17 18:59 06:59 18:59 Other: Voiding Method Diaper Diaper Diaper Incontinent Incontinent Incontinent # Voids 2 3 - Exam General: The patient is awake and alert, in no distress Eye: there is normal conjunctiva bilaterally. Neck: The neck is supple, there is no JVD. Cardiovascular: Normal S1-S2, no S3-S4, no murmurs. Respiratory: Lungs clear to auscultation bilaterally Gastrointestinal: Abdomen is soft, nontender Musculoskeletal: There is no pedal edema. Skin: Skin is warm and dry - Labs CBC & Chem 7: 05/09/17 06:01 05/09/17 06:05 Labs: Abnormal Lab Results - Last 24 Hours (Table) 05/10/17 05/10/17 05/10/17 Range/Units 11:57 16:59 20:21 POC Glucose (mg/dL) 191 H 204 H 186 H (75-99) mg/dL 05/11/17 Range/Units 07:50 POC Glucose (mg/dL) 221 H (75-99) mg/dL Assessment and Plan Plan: 1. Acute Non-Q-wave myocardial infarction present on admission: She has been evaluated by cardiology the recommending medical management. 2. Atrial fibrillation with rapid ventricular response: Evaluated by cardiology they've increased her metoprolol dose to 50 mg twice a day. Patient not a good candidate for anticoagulation because of her risks of multiple falls 3. Hyperlipidemia continue statin 4. Acute systolic CHF exacerbation: Patient started on Lasix. Chest x-ray shows evidence of fluid overload and BNP elevated at 7580. Echo shows an EF of less than 20%. 5. Diabetes mellitus type 2: Hemoglobin A1c of 6.9. Patient currently on metformin. Blood sugars are still the 200s. We'll add glipizide 2.5 mg daily 6. Dementia/underlying cognitive impairment 7. Essential hypertension 8. Generalized anxiety disorder resume Xanax 9. Acute encephalopathy/hospital-acquired delirium, Mental status changes with somnolence and confusion, neurology is following. Computed tomography scan of brain showed no acute changes. Psychiatry consulted. Continue to monitor. I advised to have full use of benzodiazepine DVT prophylaxis Lovenox today, I called her son, Chon, and discussed her current clinical condition. I told him frankly that we are not sure was the exact cause of her altered mental status. Patient was seen and evaluated by both neurology and psychiatry. she is scheduled for an EEG. I would obtain repeat blood work today including CBC, CMP, thyroid function tests, vitamin B12 level, and folate. I discussed with his son the option of transferring his mother to a tertiary care facility For further evaluation. He said that he would like to hold off for now. He wanted to discuss with his brother from out of town. he said that his mother's wishes were always that she did not want anything aggressive and she wants to be comfortable. we also discussed with significant deterioration in her overall condition as patient used to be independent and lives by her alone and drives her own car up until this hospitalization.
[2017-05-11] MEDS: FOLIC ACID 1 MG TAB PO SCH (12:21)
[2017-05-11] MEDS ORDERED: LORazepam 2 MG/ML SYRINGE IV STA (13:43)
[2017-05-11 14:06] LABS: Glucose,Whole Blood 162 mg/dL (75-99)
[2017-05-11 17:01] LABS: Glucose,Whole Blood 209 mg/dL (75-99)
[2017-05-11] MEDS: LORazepam 2 MG/ML SYRINGE IV PRN (19:03)
[2017-05-11] MEDS: MONTELUKAST 10 MG TAB PO SCH (20:38)
[2017-05-11] MEDS: ATORVASTATIN 20 MG TAB PO SCH (20:38)
[2017-05-12] MEDS: metFORMIN 500 MG TAB PO SCH ×2 (07:33→18:50)
[2017-05-12] MEDS: INSULIN LISPRO (humaLOG) 300 UNIT/3 ML VIAL SQ SCH ×4 (07:33→21:30)
[2017-05-12] MEDS: ASPIRIN 81 MG PO SCH (07:34)
[2017-05-12] MEDS: METOPROLOL TARTRATE 50 MG TAB PO SCH ×2 (07:34→19:06)
[2017-05-12 08:18] LABS: ALT 163 U/L (9-52); AST 148 U/L (14-36); Alkaline Phosphatase 55 U/L (38-126); Anion Gap 16 mmol/L; Blood Urea Nitrogen 54 mg/dL (7-17); Calcium 10.1 mg/dL (8.4-10.2); Carbon Dioxide 26 mmol/L (22-30); Glucose 194 mg/dL (74-99); Non-African American GFR(MDRD) 53 (>60 ml/min/1.73 sqM); Potassium 3.4 mmol/L (3.5-5.1); Total Bilirubin 0.9 mg/dL (0.2-1.3); Total Protein 7.9 g/dL (6.3-8.2)
[2017-05-12 08:26] LABS: Basophils # (A) 0.1 k/uL (0-0.2); Basophils % (A) 0 %; CHCM 32.7; Eosinophils % (A) 0 %; HCT 54.4 % (34.0-46.0); HDW 2.35; Luc # (Auto) 0.35; Luc % (Auto) 2; Lymphocytes # (A) 1.1 k/uL (1.0-4.8); Lymphocytes % (A) 5 %; MCH 30.2 pg (25.0-35.0); MCHC 31.8 g/dL (31.0-37.0); MCV 95.2 fL (80.0-100.0); Mean Platelet Volume 8.7; Monocytes # (A) 1.2 k/uL (0-1.0); Monocytes % (A) 6 %; Neutrophils # (A) 18.9 k/uL (1.3-7.7); Neutrophils % (A) 88 %; RBC 5.72 m/uL (3.80-5.40); RDW 14.6 % (11.5-15.5); WBC 21.6 k/uL (3.8-10.6); WBC (Perox) 21.87
[2017-05-12 08:37] LABS: HGB 17.3 gm/dL (11.4-16.0)
[2017-05-12 09:35] LABS: Chloride 120 mmol/L (98-107); Sodium 162 mmol/L (137-145)
[2017-05-12] MEDS ORDERED: SODIUM CHLORIDE 0.9% 1,000 ML IV SCH (10:15)
--- NOTE | 2017-05-12 11:20 | CONS ---
PSYCHIATRIC CONSULTATION DATE OF CONSULTATION: 05/10/2017 REASON FOR CONSULTATION: Evaluate for mental status change. HISTORY OF PRESENT ILLNESS: The patient is an 81-year-old female with a history of dementia, hypertension, hyperlipidemia, vertigo, anxiety and diabetes. She came to the emergency room for chest pain. There is some uncertainty about her overall mental status. She apparently had some fluctuating confusion. There is a note in the chart on the that she was oriented and alert. The progress note of Dr. Hackett on May 07 documents the following, "She was noted to be quite confused on admission. This evening she is showing some improvement in her overall mental status." On the Dr. Hackett documented, "She is noted today to have ongoing symptoms of underlying cognitive impairment and dementia. She is able to answer only a few questions appropriately. The patient is lying in bed and is quite confused this evening. She is not sure why she was admitted to the hospital. Her speech is fluent with no evidence of any aphasia. " Dr. Hackett's assessment was acute encephalopathy that is multifocal. According to nursing staff, over the last couple days at least she has barely been responsive at all. Most of the time she lays in bed and will just move about in a mild to moderately restless manner. She may pull clothes and covers off . Much of the time she lays with her eyes closed and makes no effort to respond. On occasion she may give the most minimal of response such as make an effort to half open her eyes when asked but not anything more than that. Prior to admission she was on Lexapro 10 mg a day and Xanax 0.25 mg twice a day p.r.n. She was also on Antivert. The extent of her Xanax use at home is uncertain. She is not currently on any regular psychotropic medications though does have an order for Ativan p.r.n. She has used Ativan earlier in the admission for some episodes of getting quite agitated and distressed. MENTAL STATUS EXAM: When I saw the patient, she was lying in bed. She had her eyes closed. She moved about a little bit. She may have made the most minimal of effort to open her eyes or at least move her eyelids. When asked 1 time after that there was no further effort made to respond to any questions. She made no vocalizations. It was difficult to determine if she was distressed. ASSESSMENT AND PLAN: I would agree with a diagnosis of encephalopathy with multifactorial inputs. There is some concern that the patient could be exhibiting catatonia given that she has been able to make some responses to staff although for the most part is nonresponsive to anything in her environment. I will give the patient a test dose of Ativan 1 mg. I will review any potential response with the nurse. I will continue to follow. JADENL / AUDREYN: [id number] / VIVIAN
--- NOTE | 2017-05-12 11:42 | CONS ---
PSYCHIATRIC CONSULTATION DATE OF CONSULTATION: 05/11/2017 PURPOSE FOR CONSULTATION: Evaluate for altered mental status with nonresponsiveness. INTERVAL HISTORY: Patient continues to do about the same. Mostly she lays in bed with little or no response to staff interventions. It is noted that I gave her a test dose of Ativan 1 mg for possible catatonia. Nursing staff reported that after that she seemed to be a little more responsive where she did say a few words, although otherwise resisted things such as trying to encourage her to take medicines or fluids orally. She pretty much continues to just lay passively in the bed. She only minimally responds to staff. She keeps her eyes closed most of the time. I had a contact with her son, Lior Stoddard. He indicated that he had concern over the last several weeks about possible worsening of dementia. He said that he had heard from apparent neighbors that she may have been pulling out in traffic when she was driving the car recently. She has had a change in behavior over the last 6 months where she has become more belligerent and probably paranoid. She gets distressed about door locks. He found an odd situation at home where the outside knob of the door was removed. Last she had the complaint of chest pain. On Tuesday the son noted that she was quite belligerent where she was wanting to go places that were not too rational. Patient states that her about 6 years ago. She has had a lot of distress over that and has had continued crying spells up until recently, mainly about the loss of her . She had been prescribed Xanax. He noted that in the last month she had increasingly odd behavior and was showing poor basic function. MENTAL STATUS EXAM: The patient continues to be unresponsive in any way. She does not make an effort to do things such as open her eyes or say any words. She lays in a very passive manner. I will repeat a dose of Ativan 2 mg, again as a trial to assess possible catatonia as one potentially treatable condition that could relate to her current condition, I will get updates from nursing staff and re-evaluate as well. If she does respond to Ativan I would anticipate some indication of increased responsiveness over the first 2 hours of receiving Ativan. MMODL / IJN: [id number] / [facility]
[2017-05-12] MEDS: ENOXAPARIN 40 MG/0.4 ML SYRINGE SQ SCH (11:49)
[2017-05-12 11:50] LABS: Vitamin B12 540 pg/mL
[2017-05-12] MEDS: FOLIC ACID 1 MG TAB PO SCH (11:50)
--- NOTE | 2017-05-12 12:21 | P.PN ---
Subjective Patient's overall condition is not improving. She is more obtunded today. Lab work from this morning show significant dehydration with evidence of hypovolemic hypernatremia. Unfortunately lab work was not done yesterday for unclear reason. Objective - Vital Signs Vital signs: Vital Signs Temp 98.7 F 05/12/17 11:00 Pulse 68 05/12/17 11:00 Resp 44 H 05/12/17 11:00 BP 120/80 05/12/17 11:00 Pulse Ox 96 05/12/17 11:00 Intake & Output 05/11/17 05/12/17 05/12/17 18:59 06:59 18:59 Intake Total 10 Balance 10 Intake: Oral 10 Other: Voiding Method Diaper Diaper Diaper Incontinent Incontinent Incontinent # Voids 2 2 - Exam General: The patient is obtunded Neck: The neck is supple, there is no JVD. Cardiovascular: Normal S1-S2, no S3-S4, no murmurs. Respiratory: Lungs clear to auscultation bilaterally Gastrointestinal: Abdomen is soft, nontender Musculoskeletal: There is no pedal edema. Skin: Skin is warm and dry - Labs CBC & Chem 7: 05/12/17 07:45 05/12/17 07:45 Labs: Abnormal Lab Results - Last 24 Hours (Table) 05/11/17 05/11/17 05/12/17 Range/Units 11:14 16:56 07:45 WBC 21.6 H (3.8-10.6) k/uL RBC 5.72 H (3.80-5.40) m/uL Hgb 17.3 H D (11.4-16.0) gm/dL Hct 54.4 H (34.0-46.0) % Neutrophils # 18.9 H (1.3-7.7) k/uL Monocytes # 1.2 H (0-1.0) k/uL Sodium (137-145) mmol/L Potassium (3.5-5.1) mmol/L Chloride (98-107) mmol/L BUN (7-17) mg/dL Glucose (74-99) mg/dL POC Glucose (mg/dL) 162 H 209 H (75-99) mg/dL AST (14-36) U/L ALT (9-52) U/L 08/31/17 Range/Units 07:45 WBC (3.8-10.6) k/uL RBC (3.80-5.40) m/uL Hgb (11.4-16.0) gm/dL Hct (34.0-46.0) % Neutrophils # (1.3-7.7) k/uL Monocytes # (0-1.0) k/uL Sodium 162 H* (137-145) mmol/L Potassium 3.4 L (3.5-5.1) mmol/L Chloride 120 H* (98-107) mmol/L BUN 54 H (7-17) mg/dL Glucose 194 H (74-99) mg/dL POC Glucose (mg/dL) (75-99) mg/dL AST 148 H (14-36) U/L ALT 163 H (9-52) U/L Assessment and Plan Plan: 1. Acute toxo metabolic encephalopathy 2. Hypovolemic hypernatremia 3. Severe dehydration 1. Acute Non-Q-wave myocardial infarction present on admission: She has been evaluated by cardiology the recommending medical management. 2. Atrial fibrillation with rapid ventricular response: Evaluated by cardiology they've increased her metoprolol dose to 50 mg twice a day. Patient not a good candidate for anticoagulation because of her risks of multiple falls 3. Hyperlipidemia continue statin 4. Acute systolic CHF exacerbation: Patient started on Lasix. Chest x-ray shows evidence of fluid overload and BNP elevated at 7580. Echo shows an EF of less than 20%. 5. Diabetes mellitus type 2: Hemoglobin A1c of 6.9. Patient currently on metformin. Blood sugars are still the 200s. We'll add glipizide 2.5 mg daily 6. Dementia/underlying cognitive impairment 7. Essential hypertension 8. Generalized anxiety disorder resume Xanax 9. Acute encephalopathy/hospital-acquired delirium, Mental status changes with somnolence and confusion, neurology is following. Computed tomography scan of brain showed no acute changes. Psychiatry consulted. Continue to monitor. I advised to have full use of benzodiazepine DVT prophylaxis [facility] Nursing staff having difficulty obtaining IV access. That eventually were able to obtain peripheral IV in the right lower extremity. We will continue aggressive IV fluid hydration and electrolyte replacement.
[2017-05-12 13:26] LABS: Anion Gap 15 mmol/L; Blood Urea Nitrogen 57 mg/dL (7-17); Calcium 9.7 mg/dL (8.4-10.2); Carbon Dioxide 22 mmol/L (22-30); Glucose 207 mg/dL (74-99); Non-African American GFR(MDRD) 60 (>60 ml/min/1.73 sqM); Potassium 3.5 mmol/L (3.5-5.1)
[2017-05-12 13:32] LABS: Chloride 124 mmol/L (98-107); Sodium 161 mmol/L (137-145)
[2017-05-12] MEDS ORDERED: DEXTROSE 5%-0.45% NACL 1,000 ML IV SCH ×2 (14:15→16:15)
[2017-05-12] MEDS ORDERED: ADENOSINE 3 MG/ML 2 ML VIAL IVP STA ×2 (15:42→15:48)
[2017-05-12 16:31] LABS: Glucose,Whole Blood 224 mg/dL (75-99)
[2017-05-12 17:46] LABS: Basophils # (A) 0.1 k/uL (0-0.2); Basophils % (A) 0 %; CH 31.1; CHCM 33.2; Eosinophils % (A) 0 %; HCT 49.9 % (34.0-46.0); HDW 2.36; Luc # (Auto) 0.27; Luc % (Auto) 1; Lymphocytes % (A) 4 %; MCH 30.3 pg (25.0-35.0); MCHC 32.2 g/dL (31.0-37.0); MCV 94.3 fL (80.0-100.0); Mean Platelet Volume 8.7; Monocytes # (A) 1.1 k/uL (0-1.0); Monocytes % (A) 5 %; Neutrophils # (A) 20.7 k/uL (1.3-7.7); Neutrophils % (A) 90 %; RBC 5.29 m/uL (3.80-5.40); RDW 14.5 % (11.5-15.5); WBC 23.1 k/uL (3.8-10.6); WBC (Perox) 23.96
[2017-05-12 18:41] LABS: Anion Gap 17 mmol/L; Blood Urea Nitrogen 56 mg/dL (7-17); Calcium 9.5 mg/dL (8.4-10.2); Carbon Dioxide 23 mmol/L (22-30); Glucose 252 mg/dL (74-99); Non-African American GFR(MDRD) 60 (>60 ml/min/1.73 sqM); Potassium 3.2 mmol/L (3.5-5.1)
[2017-05-12 18:45] LABS: Chloride 122 mmol/L (98-107); Sodium 162 mmol/L (137-145)
[2017-05-12] MEDS: DEXTROSE 5% IN WATER 1,000 ML IV ONE ×2 (19:06→19:07)
[2017-05-12] MEDS: METOPROLOL TARTRATE 5 MG/5 ML VIAL IVP SCH (19:07)
[2017-05-12] MEDS: DILTIAZEM 125 MG in SODIUM CHLORIDE 0.9% 100 ML IV SCH (19:08)
[2017-05-12] MEDS: ATORVASTATIN 20 MG TAB PO SCH (20:34)
[2017-05-12] MEDS: MONTELUKAST 10 MG TAB PO SCH (20:34)
[2017-05-12] MEDS: LORazepam 2 MG/ML SYRINGE IV PRN (20:40)
--- NOTE | 2017-05-12 21:28 | P.PN ---
Subjective This patient is a 81-year-old female admitted with altered mental status and confusion. She is noted today to have ongoing symptoms of underlying cognitive impairment and dementia. She is able to answer only a few questions appropriately. We will continue close neurological follow-up with this patient during this admission. The patient is laying in bed and is quite confused this evening. She is not sure why she was admitted to the hospital. She was noted to continue due to mistreated evidence of confusion early this morning. As noted she did have an acute non-Q wave myocardial infarction on admission. She is being evaluated and treated by cardiology for this condition. She does have evidence of atrial fibrillation but is not a candidate for long-term anticoagulation due to her multiple risk of fall. Overall the patient seems to be doing about the same today. She does have evidence of underlying dementia as well. We will continue current neurological evaluation and monitoring of this patient. Her overall prognosis at this time remains very guarded. Her speech is fluent with no evidence of any aphasia. We will continue close neurological workup for this patient with altered mental status. She does have history of underlying dementia. According to her she was diagnosed only recently after she had failed a memory test by her primary care physician. We have explained to the that dementia does not develop over a matter of weeks or months but usually takes years. Currently she was transferred to the intensive care unit this evening as she had developed evidence of SVT. Cardiology has started her on a Cardizem drip as well as amiodarone drip. She was transferred to the ICU this evening. She remains obtunded and lethargic. She does not open her eyes. Her last computed tomography scan of the brain was completed on 05/07/2017 and failed to reveal any acute changes. We will obtain a follow-up computed tomography scan of the brain tomorrow. She is unable to have an MRI of the brain that she has a pacemaker. Her overall prognosis at this time remains guarded. We will continue close neurological follow-up with this patient in the intensive care unit. Objective - Vital Signs Vital signs: Vital Signs Temp 98.7 F 05/12/17 11:00 Pulse 165 H 05/12/17 19:00 Resp 33 H 05/12/17 19:00 BP 98/62 05/12/17 19:00 Pulse Ox 91 L 05/12/17 19:00 Intake & Output 05/12/17 05/12/17 05/13/17 06:59 18:59 06:59 Output Total 200 300 Balance -200 -300 Output: Urine 200 300 Other: Voiding Method Diaper Diaper Incontinent Incontinent # Voids 2 2 - Exam Physical examination: PHYSICAL EXAMINATION: Patient is resting comfortably in bed. VITAL SIGNS: Blood pressure is [98/62]. Heart rate is [165]. Respiration is [33] . Temperature is [98.7]. HEENT: Head is atraumatic, neck is supple, there were no carotid bruits. CHEST: Lungs are clear to auscultation and percussion. CARDIAC: S1, S2 normal rate and rhythm. There is no murmur. ABDOMEN: Soft and nontender. Bowel sounds are present. EXTREMITIES: There is no pedal edema. Peripheral pulses are present. Neurological examination: Patient is awake alert and oriented 1 only. Her speech is slow but fluent. Her memory and intellectual functions are impaired. Her remaining neurological examination is unchanged from yesterday. - Labs CBC & Chem 7: 05/12/17 17:32 05/12/17 17:32 Labs: Abnormal Lab Results - Last 24 Hours (Table) 05/12/17 05/12/17 05/12/17 Range/Units 07:45 07:45 12:48 WBC 21.6 H (3.8-10.6) k/uL RBC 5.72 H (3.80-5.40) m/uL Hgb 17.3 H D (11.4-16.0) gm/dL Hct 54.4 H (34.0-46.0) % Neutrophils # 18.9 H (1.3-7.7) k/uL Monocytes # 1.2 H (0-1.0) k/uL Sodium 162 H* 161 H* (137-145) mmol/L Potassium 3.4 L (3.5-5.1) mmol/L Chloride 120 H* 124 H* (98-107) mmol/L BUN 54 H 57 H (7-17) mg/dL Glucose 194 H 207 H (74-99) mg/dL POC Glucose (mg/dL) (75-99) mg/dL Magnesium (1.6-2.3) mg/dL AST 148 H (14-36) U/L ALT 163 H (9-52) U/L 05/12/17 05/12/17 05/12/17 Range/Units 12:48 16:28 17:32 WBC (3.8-10.6) k/uL RBC (3.80-5.40) m/uL Hgb (11.4-16.0) gm/dL Hct (34.0-46.0) % Neutrophils # (1.3-7.7) k/uL Monocytes # (0-1.0) k/uL Sodium 162 H* (137-145) mmol/L Potassium 3.2 L (3.5-5.1) mmol/L Chloride 122 H* (98-107) mmol/L BUN 56 H (7-17) mg/dL Glucose 252 H (74-99) mg/dL POC Glucose (mg/dL) 224 H (75-99) mg/dL Magnesium 2.8 H (1.6-2.3) mg/dL AST (14-36) U/L ALT (9-52) U/L 05/12/17 Range/Units 17:32 WBC 23.1 H (3.8-10.6) k/uL RBC (3.80-5.40) m/uL Hgb (11.4-16.0) gm/dL Hct 49.9 H (34.0-46.0) % Neutrophils # 20.7 H (1.3-7.7) k/uL Monocytes # 1.1 H (0-1.0) k/uL Sodium (137-145) mmol/L Potassium (3.5-5.1) mmol/L Chloride (98-107) mmol/L BUN (7-17) mg/dL Glucose (74-99) mg/dL POC Glucose (mg/dL) (75-99) mg/dL Magnesium (1.6-2.3) mg/dL AST (14-36) U/L ALT (9-52) U/L Assessment and Plan (1) Acute encephalopathy Status: Acute Code(s): G93.40 - ENCEPHALOPATHY, UNSPECIFIED (2) Dementia Status: Acute Code(s): F03.90 - UNSPECIFIED DEMENTIA WITHOUT BEHAVIORAL DISTURBANCE (3) NSTEMI (non-ST elevated myocardial infarction) Status: Acute Code(s): I21.4 - NON-ST ELEVATION (NSTEMI) MYOCARDIAL INFARCTION (4) Near syncope Status: Acute Code(s): R55 - SYNCOPE AND COLLAPSE Plan: This patient is a 81-year-old female who was admitted to hospital for evaluation of altered mental status and confusion. She underwent a computed tomography scan of the brain in the emergency room which was negative for any evidence of acute stroke or hemorrhage. She has a history of underlying dementia which has been gradually worsening. She also has atrial fibrillation and is not a candidate for long-term anticoagulation as per cardiology's recommendation. Patient has shown slight improvement with her mentation this evening. We will continue close neurological follow-up for the patient. Her clinical history is consistent with an acute encephalopathy that is multifactorial. Patient continues remained confused late this evening. She is able to answer only simple questions. She is being treated by cardiology for acute non-Q-wave myocardial infarction. She has been having episodes of mild to moderate degree of confusion especially at night. She has been given some Ativan for this condition as well. She likely has some degree of underlying dementia. The patient developed sudden onset of SVT this evening on the selective care floor. She was started on a Cardizem and amiodarone drip and is now been transferred to the intensive care unit where she is examined this evening. She remains confused and disoriented. She is not opening her eyes. We have had a long discussion with the patient's son at bedside. All of his questions were answered. He is aware of his mother's guarded condition. Apparently he states that she was recently being worked up for underlying dementia which clearly she likely has. We will plan to get a follow-up computed tomography scan of the brain tomorrow. She underwent a routine EEG today which was reviewed and does reveal evidence of severe slowing. This be consistent with a diffuse encephalopathy. We discussed these findings today with the son at bedside. We will continue to monitor progress closely during this admission. We will continue close neurological follow-up of this patient in the intensive care unit during this admission. Her overall prognosis at this time remains very guarded. Case was discussed today with the son and granddaughter at bedside. All of their questions were answered. They're aware of her guarded condition.
[2017-05-12 21:30] LABS: Glucose,Whole Blood 252 mg/dL (75-99)
[2017-05-12] MEDS: AMIODARONE 450 MG in DEXTROSE 5% IN WATER 250 ML IV SCH ×2 (21:30)
[2017-05-13] MEDS: LORazepam 2 MG/ML SYRINGE IV PRN ×2 (00:13→03:54)
[2017-05-13] MEDS: METOPROLOL TARTRATE 5 MG/5 ML VIAL IVP SCH ×3 (00:15→15:43)
[2017-05-13] MEDS ORDERED: DEXTROSE 5% IN WATER 100 ML with AMIODARONE 150 MG IV ONE (01:49)
[2017-05-13] MEDS: AMIODARONE 450 MG in DEXTROSE 5% IN WATER 250 ML IV SCH ×4 (03:50→11:41)
[2017-05-13 05:17] LABS: Basophils # (A) 0.1 k/uL (0-0.2); Basophils % (A) 1 %; CH 31.2; CHCM 32.4; Eosinophils % (A) 0 %; HCT 52.5 % (34.0-46.0); HDW 2.39; HGB 16.6 gm/dL (11.4-16.0); Luc # (Auto) 0.27; Luc % (Auto) 1; Lymphocytes % (A) 5 %; MCH 30.7 pg (25.0-35.0); MCHC 31.7 g/dL (31.0-37.0); MCV 96.9 fL (80.0-100.0); Mean Platelet Volume 9.3; Monocytes # (A) 1.2 k/uL (0-1.0); Monocytes % (A) 6 %; Neutrophils # (A) 18.5 k/uL (1.3-7.7); Neutrophils % (A) 88 %; RBC 5.41 m/uL (3.80-5.40); RDW 14.6 % (11.5-15.5); WBC 21.1 k/uL (3.8-10.6); WBC (Perox) 21.29
[2017-05-13] MEDS: DILTIAZEM 125 MG in SODIUM CHLORIDE 0.9% 100 ML IV SCH (06:47)
[2017-05-13] MEDS: DEXTROSE 5% IN WATER 1,000 ML IV SCH ×2 (06:48→11:40)
[2017-05-13 07:11] LABS: ALT 113 U/L (9-52); AST 72 U/L (14-36); Alkaline Phosphatase 38 U/L (38-126); Anion Gap 13 mmol/L; Blood Urea Nitrogen 38 mg/dL (7-17); Calcium 8.7 mg/dL (8.4-10.2); Carbon Dioxide 23 mmol/L (22-30); Chloride 114 mmol/L (98-107); Glucose 338 mg/dL (74-99); Magnesium 2.4 mg/dL (1.6-2.3); Non-African American GFR(MDRD) >60 (>60 ml/min/1.73 sqM); Phosphorous 2.1 mg/dL (2.5-4.5); Potassium 3.5 mmol/L (3.5-5.1); Sodium 150 mmol/L (137-145); Total Protein 6.6 g/dL (6.3-8.2)
[2017-05-13 07:35] LABS: Glucose,Whole Blood 334 mg/dL (75-99)
[2017-05-13] MEDS ORDERED: Potassium Replacement Protocol 1 EACH MISC MISCELLANE PRN (07:48)
[2017-05-13] MEDS: metFORMIN 500 MG TAB PO SCH (08:11)
[2017-05-13] MEDS: ENOXAPARIN 40 MG/0.4 ML SYRINGE SQ SCH (08:12)
[2017-05-13] MEDS: ASPIRIN 81 MG PO SCH (08:12)
[2017-05-13] MEDS: POTASSIUM CHLORIDE 10 MEQ, LIDOCAINE 2% INJ 10 MG in SODIUM CHLORIDE 0.9% 100 ML IV SCH ×2 (08:14→10:24)
[2017-05-13] MEDS: INSULIN LISPRO (humaLOG) 300 UNIT/3 ML VIAL SQ SCH ×3 (08:15→18:55)
--- NOTE | 2017-05-13 10:05 | XR ---
EXAMINATION TYPE: XR chest 1V DATE OF EXAM: 05/13/2017 COMPARISON: 05/09/2017 INDICATION: Short of breath TECHNIQUE: Single frontal view of the chest is obtained. FINDINGS: The heart size is normal. The pulmonary vasculature is normal. Bilateral infrahilar infiltrates may be present. Correlate for atelectasis. Electronic device overlie s left chest. IMPRESSION: 1. Consider atelectasis within the infrahilar regions bilaterally. Lungs otherwise appear clear
[2017-05-13] MEDS: FOLIC ACID 1 MG TAB PO SCH (11:39)
--- NOTE | 2017-05-13 11:40 | CONS ---
PSYCHIATRIC CONSULTATION DATE OF CONSULTATION: 05/12/2017. PURPOSE OF CONSULTATION: Evaluate for altered mental status with nonresponsiveness. INTERVAL HISTORY: The patient continues the same. She has had three challenges of Ativan to assess a possible diagnosis of catatonia. She showed no clear response to that with clearing of her thought process. She continues to be essentially totally non- communicative. She lays in bed with her eyes closed. She has some restlessness. It is noted that she had been functioning independently leading up to her hospitalization. She apparently had some level of cognitive awareness perhaps early in her hospital stay, though otherwise her stay has been punctuated by this complete lack of response to any kind of general stimulation. Staff have expressed concern today that she is showing signs of dehydration and when I saw the patient, she was lying in bed, staff were making an effort to start an IV that was difficult to find a vein. Patient herself laid quietly without any response to the staff, her eyes are closed. ASSESSMENT: Continue the current diagnosis and treatment plan. It is noted that I had contacted Dr. Talib Farnsworth at [facility] who is an expert on the catatonia. He had suggested the Ativan trials as an appropriate assessment. He also indicated that in some circumstances a trial of amantadine 100 mg along with Ambien 10 mg twice a day are potential options given the effects those medications have on LAN receptors. At this point, I would not look towards any additional medication trials until the patient shows some further stabilizing of her general health status. I will continue to follow. MMTAIWOL / AUDREYN: [id number] / MTDD
[2017-05-13 11:47] LABS: Glucose,Whole Blood 284 mg/dL (75-99)
--- NOTE | 2017-05-13 13:40 | EEG ---
ELECTROENCEPHALOGRAM REPORT DATE OF EE05/12/2017 ELECTROENCEPHALOGRAPHIC EXAMINATION REPORT: INDICATION FOR EXAMINATION: This patient is an 81-year-old female being evaluated for altered mental status and confusion. Patient with worsening mental status changes. She has now been transferred to the intensive care unit. AGE: 81 EEG FINDINGS: A routine 21-channel awake, digital EEG recording was accomplished utilizing the 10-20 international system with bipolar and referential montages. The background activity in the most alert, resting state consists of a low to medium amplitude, poorly developed and poorly sustained 4 Hz activity over the posterior head regions. This posterior rhythm attenuates minimally to eye opening. There is a small amount of low amplitude 18-20 Hz beta activity seen maximally over the anterior head regions. Muscle and movement artifact was observed on several occasions during the tracing. Hyperventilation was not performed. Photic stimulation at flash frequencies of 2-30 Hz produced a minimal occipital driving response. No epileptiform discharges were seen. IMPRESSION: This EEG give evidence of a severe widespread diffuse disturbance in cerebral function The EEG failed to reveal any focal, lateralized or epileptiform abnormalities. If clinically indicated, a follow-up EEG is recommended. Clinical correlation is recommended. MMODL / IJN: [id number] /
--- NOTE | 2017-05-13 13:48 | XR ---
EXAMINATION TYPE: XR chest 1V DATE OF EXAM: 05/13/2017 COMPARISON: 05/13/[id number]-trlx-nbp same date INDICATION: Line and Dobbhoff placement TECHNIQUE: Single frontal view of the chest is obtained. FINDINGS: The heart size is normal. The pulmonary vasculature is normal. There is a nodule within the right midlung which is stable Dobbhoff feeding tube is been placed with the tip at the edge of the [id number] within the abdomen . Right central venous catheter is place with tip in the proximal right atrium. EKG leads overlie the chest IMPRESSION: 1. Dobbhoff feeding tube tip within the mid abdomen. 2. No pneumothorax post right central venous catheter placement, tip in the proximal right atrium.
--- NOTE | 2017-05-13 14:07 | P.PN ---
Subjective Patient was brought from the fourth floor. She was initially on 6 E. and came in with a non-Q wave myocardial infarction. She was treated medically after that there was a significant deterioration in mental status and was sent back to the fourth floor. She was brought back because of supraventricular tachycardia that was unresponsive to adenosine and the lady given IV amiodarone. This was most likely atrial tachycardia she's had in the past At this time she is completely unresponsive she does not respond to any verbal commands at all breath sounds are very reduced, heart sounds are soft Impression Hypertension Non-Q wave myocardial infarction Significant deterioration in mental status but she has past history of progressive dementia Suggest Medical management only follow ICU care Objective - Vital Signs Vital signs: Vital Signs Temp 98.4 F 05/13/17 12:00 Pulse 81 05/13/17 13:00 Resp 32 H 05/13/17 13:00 BP 90/56 05/13/17 13:00 Pulse Ox 93 L 05/13/17 13:00 Intake & Output 05/12/17 05/13/17 05/13/17 18:59 06:59 18:59 Intake Total 2095.917 1371.628 Output Total 200 1155 615 Balance -200 940.917 756.628 Weight 44.6 kg 44.6 kg Intake: IV 1700 1275 Dextrose 5% in Water 1, 1500 000 ml @ 150 mls/hr IV . Q6H40M [facility] Rx#:[id number] Dextrose 5% in Water 1, 200 1275 000 ml @ 200 mls/hr IV . Q5H [facility] Rx#:[id number] Intake, IV Titration 395.917 96.628 Amount Amiodarone 450 mg In 279.417 96.628 Dextrose 5% in Water 250 ml @ 1 MG/MIN 33.33 mls/ hr IV .Q7H31M [facility] Rx#: [id number] Diltiazem 125 mg In 116.5 Sodium Chloride 0.9% 100 ml @ 10 MG/HR 10 mls/hr IV .[id number] [facility] Rx#: [id number] Output: Urine 200 1155 615 Other: Voiding Method Indwelling Catheter Indwelling Catheter Indwelling Catheter # Voids 2 2 # Bowel Movements 0 - Labs CBC & Chem 7: 05/13/17 04:52 05/13/17 06:46 Labs: Abnormal Lab Results - Last 24 Hours (Table) 05/12/17 05/12/17 05/12/17 Range/Units 12:48 16:28 17:32 WBC (3.8-10.6) k/uL RBC (3.80-5.40) m/uL Hgb (11.4-16.0) gm/dL Hct (34.0-46.0) % Neutrophils # (1.3-7.7) k/uL Monocytes # (0-1.0) k/uL Sodium 162 H* (137-145) mmol/L Potassium 3.2 L (3.5-5.1) mmol/L Chloride 122 H* (98-107) mmol/L BUN 56 H (7-17) mg/dL Glucose 252 H (74-99) mg/dL POC Glucose (mg/dL) 224 H (75-99) mg/dL Plasma Lactic Acid Everett (0.7-2.0) mmol/L Phosphorus (2.5-4.5) mg/dL Magnesium 2.8 H (1.6-2.3) mg/dL AST (14-36) U/L ALT (9-52) U/L Albumin (3.5-5.0) g/dL 05/12/17 05/12/17 05/13/17 Range/Units 17:32 21:28 04:52 WBC 23.1 H 21.1 H (3.8-10.6) k/uL RBC 5.41 H (3.80-5.40) m/uL Hgb 16.6 H (11.4-16.0) gm/dL Hct 49.9 H 52.5 H (34.0-46.0) % Neutrophils # 20.7 H 18.5 H (1.3-7.7) k/uL Monocytes # 1.1 H 1.2 H (0-1.0) k/uL Sodium (137-145) mmol/L Potassium (3.5-5.1) mmol/L Chloride (98-107) mmol/L BUN (7-17) mg/dL Glucose (74-99) mg/dL POC Glucose (mg/dL) 252 H (75-99) mg/dL Plasma Lactic Acid Everett (0.7-2.0) mmol/L Phosphorus (2.5-4.5) mg/dL Magnesium (1.6-2.3) mg/dL AST (14-36) U/L ALT (9-52) U/L Albumin (3.5-5.0) g/dL 05/13/17 05/13/17 05/13/17 Range/Units 04:52 06:46 07:33 WBC (3.8-10.6) k/uL RBC (3.80-5.40) m/uL Hgb (11.4-16.0) gm/dL Hct (34.0-46.0) % Neutrophils # (1.3-7.7) k/uL Monocytes # (0-1.0) k/uL Sodium 150 H (137-145) mmol/L Potassium (3.5-5.1) mmol/L Chloride 114 H (98-107) mmol/L BUN 38 H (7-17) mg/dL Glucose 338 H (74-99) mg/dL POC Glucose (mg/dL) 334 H (75-99) mg/dL Plasma Lactic Acid Everett 5.4 H* (0.7-2.0) mmol/L Phosphorus 2.1 L (2.5-4.5) mg/dL Magnesium 2.4 H (1.6-2.3) mg/dL AST 72 H (14-36) U/L ALT 113 H (9-52) U/L Albumin 3.4 L (3.5-5.0) g/dL 05/13/17 05/13/17 Range/Units 08:38 11:44 WBC (3.8-10.6) k/uL RBC (3.80-5.40) m/uL Hgb (11.4-16.0) gm/dL Hct (34.0-46.0) % Neutrophils # (1.3-7.7) k/uL Monocytes # (0-1.0) k/uL Sodium (137-145) mmol/L Potassium (3.5-5.1) mmol/L Chloride (98-107) mmol/L BUN (7-17) mg/dL Glucose (74-99) mg/dL POC Glucose (mg/dL) 284 H (75-99) mg/dL Plasma Lactic Acid Everett 3.7 H* (0.7-2.0) mmol/L Phosphorus (2.5-4.5) mg/dL Magnesium (1.6-2.3) mg/dL AST (14-36) U/L ALT (9-52) U/L Albumin (3.5-5.0) g/dL
--- NOTE | 2017-05-13 15:30 | P.PN ---
Subjective patient was transferred to the intensive care unit last night after she was found to be tachycardic with evidence of SVT. She was given 2 doses of adenosine and subsequently started on amiodarone as directed by cardiology. Patient remained obtunded not responsive except for painful stimuli. she does not open her eyes spontaneously or answer simple questions. Her lab work is improved compared to yesterday. Objective - Vital Signs Vital signs: Vital Signs Temp 98.4 F 05/13/17 12:00 Pulse 81 05/13/17 13:00 Resp 32 H 05/13/17 13:00 BP 90/56 05/13/17 13:00 Pulse Ox 93 L 05/13/17 13:00 Intake & Output 05/12/17 05/13/17 05/13/17 18:59 06:59 18:59 Intake Total 2095.917 1371.628 Output Total 200 1155 615 Balance -200 940.917 756.628 Weight 44.6 kg 44.6 kg Intake: IV 1700 1275 Dextrose 5% in Water 1, 1500 000 ml @ 150 mls/hr IV . Q6H40M [facility] Rx#:[id number] Dextrose 5% in Water 1, 200 1275 000 ml @ 200 mls/hr IV . Q5H [facility] Rx#:[id number] Intake, IV Titration 395.917 96.628 Amount Amiodarone 450 mg In 279.417 96.628 Dextrose 5% in Water 250 ml @ 1 MG/MIN 33.33 mls/ hr IV .Q7H31M [facility] Rx#: [id number] Diltiazem 125 mg In 116.5 Sodium Chloride 0.9% 100 ml @ 10 MG/HR 10 mls/hr IV .[id number] [facility] Rx#: [id number] Output: Urine 200 1155 615 Other: Voiding Method Indwelling Catheter Indwelling Catheter Indwelling Catheter # Voids 2 2 # Bowel Movements 0 - Exam General: The patient is obtunded Neck: The neck is supple, there is no JVD. Cardiovascular: Normal S1-S2, no S3-S4, no murmurs. Respiratory: Lungs clear to auscultation bilaterally Gastrointestinal: Abdomen is soft, nontender Musculoskeletal: There is no pedal edema. Skin: Skin is warm and dry - Labs CBC & Chem 7: 05/13/17 04:52 09/01/17 06:46 Labs: Abnormal Lab Results - Last 24 Hours (Table) 05/12/17 05/12/17 05/12/17 Range/Units 12:48 16:28 17:32 WBC (3.8-10.6) k/uL RBC (3.80-5.40) m/uL Hgb (11.4-16.0) gm/dL Hct (34.0-46.0) % Neutrophils # (1.3-7.7) k/uL Monocytes # (0-1.0) k/uL Sodium 162 H* (137-145) mmol/L Potassium 3.2 L (3.5-5.1) mmol/L Chloride 122 H* (98-107) mmol/L BUN 56 H (7-17) mg/dL Glucose 252 H (74-99) mg/dL POC Glucose (mg/dL) 224 H (75-99) mg/dL Plasma Lactic Acid Everett (0.7-2.0) mmol/L Phosphorus (2.5-4.5) mg/dL Magnesium 2.8 H (1.6-2.3) mg/dL AST (14-36) U/L ALT (9-52) U/L Albumin (3.5-5.0) g/dL 05/12/17 05/12/17 05/13/17 Range/Units 17:32 21:28 04:52 WBC 23.1 H 21.1 H (3.8-10.6) k/uL RBC 5.41 H (3.80-5.40) m/uL Hgb 16.6 H (11.4-16.0) gm/dL Hct 49.9 H 52.5 H (34.0-46.0) % Neutrophils # 20.7 H 18.5 H (1.3-7.7) k/uL Monocytes # 1.1 H 1.2 H (0-1.0) k/uL Sodium (137-145) mmol/L Potassium (3.5-5.1) mmol/L Chloride (98-107) mmol/L BUN (7-17) mg/dL Glucose (74-99) mg/dL POC Glucose (mg/dL) 252 H (75-99) mg/dL Plasma Lactic Acid Everett (0.7-2.0) mmol/L Phosphorus (2.5-4.5) mg/dL Magnesium (1.6-2.3) mg/dL AST (14-36) U/L ALT (9-52) U/L Albumin (3.5-5.0) g/dL 05/13/17 05/13/17 05/13/17 Range/Units 04:52 06:46 07:33 WBC (3.8-10.6) k/uL RBC (3.80-5.40) m/uL Hgb (11.4-16.0) gm/dL Hct (34.0-46.0) % Neutrophils # (1.3-7.7) k/uL Monocytes # (0-1.0) k/uL Sodium 150 H (137-145) mmol/L Potassium (3.5-5.1) mmol/L Chloride 114 H (98-107) mmol/L BUN 38 H (7-17) mg/dL Glucose 338 H (74-99) mg/dL POC Glucose (mg/dL) 334 H (75-99) mg/dL Plasma Lactic Acid Everett 5.4 H* (0.7-2.0) mmol/L Phosphorus 2.1 L (2.5-4.5) mg/dL Magnesium 2.4 H (1.6-2.3) mg/dL AST 72 H (14-36) U/L ALT 113 H (9-52) U/L Albumin 3.4 L (3.5-5.0) g/dL 05/13/17 05/13/17 Range/Units 08:38 11:44 WBC (3.8-10.6) k/uL RBC (3.80-5.40) m/uL Hgb (11.4-16.0) gm/dL Hct (34.0-46.0) % Neutrophils # (1.3-7.7) k/uL Monocytes # (0-1.0) k/uL Sodium (137-145) mmol/L Potassium (3.5-5.1) mmol/L Chloride (98-107) mmol/L BUN (7-17) mg/dL Glucose (74-99) mg/dL POC Glucose (mg/dL) 284 H (75-99) mg/dL Plasma Lactic Acid Everett 3.7 H* (0.7-2.0) mmol/L Phosphorus (2.5-4.5) mg/dL Magnesium (1.6-2.3) mg/dL AST (14-36) U/L ALT (9-52) U/L Albumin (3.5-5.0) g/dL Assessment and Plan Plan: 1. Acute toxo metabolic encephalopathy 2. Hypovolemic hypernatremia, improving 3. Severe dehydration 4. Starvation ketosis with elevated lactic acid level currently trending down 5. Acute Non-Q-wave myocardial infarction present on admission: She has been evaluated by cardiology the recommending medical management. 6. supraventricular tachycardia seen and evaluated by cardiology now on IV amiodarone drip. Heart rate well controlled. 7. history of Atrial fibrillation with rapid ventricular response: now receiving IV metoprolol Patient not a good candidate for anticoagulation because of her risks of multiple falls 8. Hyperlipidemia continue statin 9. Acute on chronic systolic CHF: last Echo shows an EF of less than 20%. 10. Diabetes mellitus type 2: Hemoglobin A1c of 6.9. add Lantus 10 units once a day and continue sliding scale insulin 11. Dementia/underlying cognitive impairment 12. Essential hypertension 13. Generalized anxiety disorder today, I discussed her current clinical condition with her son Chon over the phone. We discussed evidence of starvation ketosis as patient did not eat or drink anything for the past 5-7 days. He was agreeable to insert an NG tube for nutritional support. There was concern about possible refeeding syndrome and high load of carbohydrate patient was receiving with IV fluid using D5 in water. Rate was reduced to 75 mL per hour. Dietitian is following closely. I would order a repeat computed tomography scan of the brain today. I also discussed with the senior accounting associate the possibility of doing a lumbar puncture to rule out viral encephalitis and other underlying process that may be contributing to her encephalopathy. Neurology is following. her son told me that patient never wanted extra measures to prolong her life that he was agreeable for NG tube feeding for the next day or 2 to see if that may improve her overall condition. Patient is DNR/DNI otherwise. We will continue supportive care
[2017-05-13] MEDS: INSULIN GLARGINE 100 UNIT/ML 10 ML VIAL SQ SCH (15:43)
--- NOTE | 2017-05-13 17:11 | CT ---
EXAMINATION TYPE: CT brain wo con DATE OF EXAM: 05/13/2017 COMPARISON: 05/07/2017 HISTORY: Persistent encephalopathy. CT DLP: 1005.20 mGycm Automated exposure control for dose reduction was used. FINDINGS: There is cerebral cortical atrophy. There is no mass effect nor midline shift. There is no sign of in tracranial hemorrhage. The calvarium is intact. IMPRESSION: CEREBRAL ATROPHY. NO ACUTE INTRACRANIAL ABNORMALITY. NO CHANGE. OLD 1 CM LEFT SIDE INSULA LACUNAR INF ARCT.
--- NOTE | 2017-05-13 17:35 | CDI ---
In responding to this query, please exercise your independent professional judgment. The [facility] Coding Staff and Clinical Documentation Specialists appreciate your assistance in clarifying documentation, maintaining compliance with coding guidelines, accurately documenting patients condition and capturing severity of illness. The fact that a question is asked does not imply that any particular answer is desired or expected. Communication forms are a method of clarifying documentation and are not made part of the Legal Health Record. Thank you in advance for your clarification. Last Revision, July 2015 Aries Herron [address] [facility] [place] [address] Documentation Clarification Form Date: 05/13/2017 5:19:00 PM From: Rhiannon Childress Admit Date: 05/06/2017 6:03:00 AM Patient Name: Arlyn Ghosh Visit Number: [id number] Discharge Date: Dr. Ani Degroot Malnutrition has been documented in nutritional assessment. History/Risk Factors: Dementia HTN, Encephalopathy, DM, Clinical Indicators: Nutrition intake poor, was refusing all meals x 6 days. 05/13/17: Your progress note has starvation ketosis with elevated lactic acid level. Physical Findings: emaciated, underweight, temporal scooping, sunken eyes loose fragile skin Labs: Albumin 3.4, Total Protein 6.6 Lactic acid 5.4, 3.7, 1.7 Current BMI: 16.9 Insufficient energy intake: Weight Loss: yes, underweight Loss of subcutaneous fat: yes Treatment: Dietary Consult: Yes Tube Feedings per orders IV Fluids Lab monitoring: I/O In your professional opinion, can you please clarify if these findings signify one of the following conditions? Mild Protein Malnutrition Mild Protein-Calorie Malnutrition Moderate Protein Malnutrition Moderate Protein-Calorie Malnutrition Severe Protein Malnutrition Severe Protein-Calorie Malnutrition Other condition, please specify Unable to determine Please document in your progress notes and discharge summary in order to capture severity of illness and risk of mortality. Include clinical findings that support your diagnosis. FYI: Press F11 to launch patient chart. VIVIAN
--- NOTE | 2017-05-13 18:07 | P.CNPUL ---
History of Present Illness Consult date: 05/13/17 Chief complaint: A. fib RVR, altered mentation, hypernatremia History of present illness: An 81-year-old female patient with known history of dementia who was admitted to the hospital because of chest pain. Her son who is the primary caregiver noted that the patient was complaining of chest discomfort. The patient was brought into the emergency department because of chest pain. A cardiology evaluation was done and the patient was diagnosed having a acute non-ST segment elevation myocardial infarction. She has a severely impaired LV function with an ejection fraction of less than 20% based on echocardiogram study. She also has a chronic atrial fibrillation. During the same hospitalization the patient was found to be quite confused and she continued to have altered mental status and progressively became completely unresponsive. The patient was brought in to the intensive care yesterday as her cardiac rhythm went tachycardic and the patient was brought in for a potential problem of an SVT. I do not see was given during a emergency situation and the patient did not respond an underlying rhythm was reviewed and seems that the patient was in a flutter rhythm. I think that the patient was in a combination of tachycardia in the setting of atrial fibrillation/flutter. In the ICU, the patient was given Cardizem drip and beta blockers. The heart rate slowed down and currently she is back to normal sinus. She remained hemodynamically stable throughout this event. Neurologically however the patient remains unresponsive. Neurology is following the patient had psychiatry is following the patient. At one point she was thought to be catatonic and she was given a trial of Ativan which again failed to improve her condition. CAT scan of the brain has been done on admission and a repeat CAT scan of the brain was done this afternoon and it showed cerebral atrophy without any acute intracranial abnormalities. No neck stiffness. No fever. 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 The EEG also showed severe widespread diffuse disturbance of cerebral function without any evidence of focal lateralized or epileptiform abnormalities. No seizure activity has been noted. Also, the patient was found to be profoundly hyponatremic. The sodium level was around 161 and she was started on D5 water initially at 100 mL which I increased up to 150 and earlier this morning her sodium level came down to 150. She also had a component of acute kidney injury secondary to intravascular volume depletion and this is also improving. A triple lumen catheter inserted knowing that the patient had a poor IV access. A Dobbhoff catheter was also inserted for enteral feeding. Review of Systems Unable to obtain due to the above-mentioned. Nevertheless, based on my review of the record the patient was having issues with mentation and dementia prior to her coming into the hospital. She has multiple other medical problems and comorbidities ROS unobtainable: due to mental status Past Medical History Past Medical History: Diabetes Mellitus, GERD/Reflux, Hyperlipidemia, Hypertension, Osteoarthritis (OA), Pneumonia Additional Past Medical History / Comment(s): Dementia, periods of severe confusion, chronic vertigo, NIDDM type II, nonsustained VT, global hypokinesis with an ejection fraction of 20%, UTIs, chronic venous insufficiency, rosacea, chronic atrial fibrillation History of Any Multi-Drug Resistant Organisms: None Reported Past Surgical History: Appendectomy, Heart Catheterization, Hysterectomy, Orthopedic Surgery Additional Past Surgical History / Comment(s): 04/24/15 cardiac cath-clean, loop recorder, orif rt ankle-plate and screws, bilateral blephoplasty, colonoscopy Past Anesthesia/Blood Transfusion Reactions: No Reported Reaction Type of Cardiac Device: Permanent Pacemaker Device Placement Date:: UNK Smoking Status: Former smoker - Past Family History Father Additional Family Medical History / Comment(s): lung disease Mother History Unknown: Yes Medications and Allergies Home Medications Medication Instructions Recorded Confirmed Type Aspirin 81 mg PO DAILY 02/01/14 05/06/17 History Simvastatin [Zocor] 20 mg PO HS 02/01/14 05/06/17 History ALPRAZolam [Xanax] 0.25 mg PO BID PRN 04/02/15 05/06/17 History Montelukast [Singulair] 10 mg PO DAILY 04/02/15 05/06/17 History cloNIDine HCL [Clonidine HCl] 0.1 mg PO TID 12/29/15 05/06/17 History Metoprolol Tartrate [Lopressor] 12.5 mg PO BID #0 tab 12/30/15 05/06/17 Rx Escitalopram [Lexapro] 10 mg PO DAILY 05/06/17 05/06/17 History Folic Acid 1 mg PO DAILY 05/06/17 05/06/17 History Meclizine [Antivert] 25 mg PO TID PRN 05/06/17 05/06/17 History Allergies Allergy/AdvReac Type Severity Reaction Status Date / Time azithromycin [From Zithromax] Allergy Unknown Verified 05/06/17 08:06 clindamycin Allergy Unknown Verified 05/06/17 08:06 clindamycin HCl Allergy Unknown Verified 05/06/17 08:06 [From Cleocin] clindamycin palmitate HCl Allergy Unknown Verified 05/06/17 08:06 [From Cleocin] clindamycin phosphate Allergy Unknown Verified 05/06/17 08:06 [From Cleocin] codeine Allergy Unknown Verified 05/06/17 08:06 cortisone [Cortisone] Allergy Unknown Verified 05/06/17 08:06 lincomycin HCl Allergy Unknown Verified 05/06/17 08:06 [From Lincocin] meperidine HCl [From Demerol] Allergy Unknown Verified 05/06/17 08:06 Penicillins Allergy Unknown Verified 05/06/17 08:06 prednisone Allergy Unknown Verified 05/06/17 08:06 Physical Exam Vitals: Vital Signs Temp Pulse Pulse Resp BP Pulse Ox 05/13/17 13:00 81 32 H 90/56 93 L 05/13/17 12:00 98.4 F 71 178 H 32 H 108/69 94 L 05/13/17 11:00 91 14 85/51 99 05/13/17 10:00 74 36 H 90/58 97 05/13/17 09:00 98.4 F 81 28 H 99/54 96 05/13/17 08:00 73 178 H 23 100/64 94 L 05/13/17 07:00 78 24 94/56 05/13/17 06:00 136 H 26 H 106/76 94 L 05/13/17 05:00 135 H 32 H 103/70 96 05/13/17 04:00 98.0 F 135 H 26 H 103/73 94 L 05/13/17 03:00 133 H 28 H 96/66 93 L 05/13/17 02:00 141 H 31 H 97/81 94 L 05/13/17 01:00 151 H 27 H 91 L 05/13/17 00:00 99.0 F 139 H 30 H 92/71 98 05/12/17 23:59 156 H 23 86/55 96 05/12/17 23:00 161 H 24 104/70 94 L 05/12/17 22:00 165 H 36 H 91/55 94 L 05/12/17 21:00 166 H 26 H 92/71 92 L 05/12/17 20:00 98.9 F 161 H 33 H 93/85 94 L 05/12/17 19:00 165 H 33 H 98/62 91 L 05/12/17 18:00 171 H 33 H 145/78 91 L Intake and Output 05/13/17 05/13/17 05/13/17 06:59 14:59 22:59 Intake Total 5645.971 8889.628 75 Output Total 470 655 40 Balance 1175.917 791.628 35 Intake: IV 1250 1350 75 Dextrose 5% in Water 1, 1050 000 ml @ 150 mls/hr IV . Q6H40M [facility] Rx#:[id number] Dextrose 5% in Water 1, 200 1350 75 000 ml @ 75 mls/hr IV . [id number] [facility] Rx#:[id number] Intake, IV Titration 395.917 96.628 Amount Amiodarone 450 mg In 279.417 96.628 Dextrose 5% in Water 250 ml @ 1 MG/MIN 33.33 mls/ hr IV .[id number] [facility] Rx#: [id number] Diltiazem 125 mg In 116.5 Sodium Chloride 0.9% 100 ml @ 10 MG/HR 10 mls/hr IV .[id number] [facility] Rx#: [id number] Output: Urine 470 655 40 Other: Voiding Method Indwelling Catheter Indwelling Catheter # Voids 2 # Bowel Movements 0 Weight 44.6 kg 44.6 kg Patient Weight 05/14/17 06:59 Weight 44.6 kg Patient is clinically unresponsive. She moans and groans however she does not open up her eyes spontaneously nor she can be involved in a conversation. She' ll occasionally withdraws to painful stimuli. Neurologically, there is no facial asymmetry, pupils around 3-4 mm in size and sluggishly reactive to light. No nystagmus or a preferential gaze. She has a weak gag. The patient is moving all 4 extremities. No Babinski. No clonus. DTRs are +1 and symmetrical. Sensory function cannot be accurately assessed. Motor function cannot be accurately assessed. Speech cannot be accurately assessed. The patient is moaning and groaning.Head exam was generally normal. There was no scleral icterus or corneal arcus. Mucous membranes were moist. Neck is supple and there is no JVDs no goiter or neck masses. Lungs sounds are diminished otherwise clear. Vessels are equal and symmetrical bilaterally. Heart sounds are irregular at times however at the time of my evaluation to sinus. Positive S1-S2. No cervical murmurs appreciated.Abdominal exam revealed normal bowel sounds. The abdomen was soft, non-tender, and without masses, organomegaly, or appreciable enlargement of the abdominal aorta.Examination of the extremities revealed easily palpable radial, femoral and pedal pulses. There was no cyanosis , clubbing or edema. Results - Laboratory Findings CBC and BMP: 05/13/17 04:52 05/13/17 15:45 PT/INR, D-dimer PT 12.5 sec (9.0-12.0) H 05/06/17 04:26 INR 1.3 (<1.2) H 05/06/17 04:26 Abnormal lab findings: Abnormal Labs 05/06/17 05/06/17 05/06/17 03:53 04:26 04:26 WBC 14.6 H RBC 5.78 H Hgb 17.3 H Hct 55.8 H Plt Count 458 H Neutrophils # 11.4 H Monocytes # PT 12.5 H INR 1.3 H APTT Sodium Potassium Chloride Carbon Dioxide BUN Glucose POC Glucose (mg/dL) 264 H Hemoglobin A1c Plasma Lactic Acid [place] Phosphorus Magnesium AST ALT Total Creatine Kinase CK-MB (CK-2) Troponin I Total Protein Albumin HDL Cholesterol 05/06/17 05/06/17 05/06/17 04:26 04:26 04:26 WBC RBC Hgb Hct Plt Count Neutrophils # Monocytes # PT INR APTT Sodium Potassium Chloride 108 H Carbon Dioxide 17 L BUN Glucose 305 H POC Glucose (mg/dL) Hemoglobin A1c 6.9 H Plasma Lactic Acid [place] Phosphorus Magnesium AST ALT Total Creatine Kinase 173 H CK-MB (CK-2) 5.1 H* Troponin I 0.988 H* Total Protein 8.3 H Albumin HDL Cholesterol 05/06/17 05/06/17 05/06/17 08:35 11:31 11:31 WBC RBC Hgb Hct Plt Count Neutrophils # Monocytes # PT INR APTT 58.1 H Sodium Potassium Chloride Carbon Dioxide BUN Glucose POC Glucose (mg/dL) 332 H Hemoglobin A1c Plasma Lactic Acid [place] Phosphorus Magnesium AST ALT Total Creatine Kinase 151 H CK-MB (CK-2) 6.4 H* Troponin I 1.900 H* Total Protein Albumin HDL Cholesterol 05/06/17 05/06/17 05/06/17 11:35 16:35 16:47 WBC RBC Hgb Hct Plt Count Neutrophils # Monocytes # PT INR APTT Sodium Potassium Chloride Carbon Dioxide BUN Glucose POC Glucose (mg/dL) 285 H 105 H Hemoglobin A1c Plasma Lactic Acid [place] Phosphorus Magnesium AST ALT Total Creatine Kinase 176 H CK-MB (CK-2) 4.8 H* Troponin I 2.510 H* Total Protein Albumin HDL Cholesterol 05/06/17 05/07/17 05/07/17 21:31 05:37 05:37 WBC RBC Hgb Hct Plt Count Neutrophils # Monocytes # PT INR APTT 54.9 H Sodium Potassium Chloride Carbon Dioxide BUN Glucose POC Glucose (mg/dL) 144 H Hemoglobin A1c Plasma Lactic Acid [place] Phosphorus Magnesium AST ALT Total Creatine Kinase CK-MB (CK-2) Troponin I Total Protein Albumin HDL Cholesterol 72 H 05/07/17 05/07/17 05/07/17 06:31 11:41 16:41 WBC RBC Hgb Hct Plt Count Neutrophils # Monocytes # PT INR APTT Sodium Potassium Chloride Carbon Dioxide BUN Glucose POC Glucose (mg/dL) 153 H 175 H 134 H Hemoglobin A1c Plasma Lactic Acid [place] Phosphorus Magnesium AST ALT Total Creatine Kinase CK-MB (CK-2) Troponin I Total Protein Albumin HDL Cholesterol 05/07/17 05/08/17 05/08/17 21:16 05:35 05:35 WBC 16.5 H RBC Hgb Hct Plt Count Neutrophils # 13.5 H Monocytes # PT INR APTT Sodium Potassium Chloride Carbon Dioxide BUN 37 H Glucose 153 H POC Glucose (mg/dL) 138 H Hemoglobin A1c Plasma Lactic Acid [place] Phosphorus Magnesium AST ALT Total Creatine Kinase CK-MB (CK-2) Troponin I Total Protein Albumin HDL Cholesterol 05/08/17 05/08/17 05/08/17 06:09 11:23 16:35 WBC RBC Hgb Hct Plt Count Neutrophils # Monocytes # PT INR APTT Sodium Potassium Chloride Carbon Dioxide BUN Glucose POC Glucose (mg/dL) 148 H 147 H 152 H Hemoglobin A1c Plasma Lactic Acid [place] Phosphorus Magnesium AST ALT Total Creatine Kinase CK-MB (CK-2) Troponin I Total Protein Albumin HDL Cholesterol 05/08/17 05/09/17 05/09/17 20:46 05:38 06:01 WBC 19.4 H RBC Hgb Hct Plt Count Neutrophils # 16.8 H Monocytes # PT INR APTT Sodium Potassium Chloride Carbon Dioxide BUN Glucose POC Glucose (mg/dL) 145 H 177 H Hemoglobin A1c Plasma Lactic Acid [place] Phosphorus Magnesium AST ALT Total Creatine Kinase CK-MB (CK-2) Troponin I Total Protein Albumin HDL Cholesterol 05/09/17 05/09/17 05/09/17 06:05 11:34 16:39 WBC RBC Hgb Hct Plt Count Neutrophils # Monocytes # PT INR APTT Sodium Potassium Chloride Carbon Dioxide 19 L BUN 46 H Glucose 209 H POC Glucose (mg/dL) 176 H 280 H Hemoglobin A1c Plasma Lactic Acid [place] Phosphorus Magnesium AST ALT Total Creatine Kinase CK-MB (CK-2) Troponin I Total Protein Albumin HDL Cholesterol 05/09/17 05/10/17 05/10/17 20:44 07:08 11:57 WBC RBC Hgb Hct Plt Count Neutrophils # Monocytes # PT INR APTT Sodium Potassium Chloride Carbon Dioxide BUN Glucose POC Glucose (mg/dL) 165 H 209 H 191 H Hemoglobin A1c Plasma Lactic Acid [place] Phosphorus Magnesium AST ALT Total Creatine Kinase CK-MB (CK-2) Troponin I Total Protein Albumin HDL Cholesterol 05/10/17 05/10/17 05/11/17 16:59 20:21 07:50 WBC RBC Hgb Hct Plt Count Neutrophils # Monocytes # PT INR APTT Sodium Potassium Chloride Carbon Dioxide BUN Glucose POC Glucose (mg/dL) 204 H 186 H 221 H Hemoglobin A1c Plasma Lactic Acid [place] Phosphorus Magnesium AST ALT Total Creatine Kinase CK-MB (CK-2) Troponin I Total Protein Albumin HDL Cholesterol 05/11/17 05/11/17 05/12/17 11:14 16:56 07:45 WBC 21.6 H RBC 5.72 H Hgb 17.3 H D Hct 54.4 H Plt Count Neutrophils # 18.9 H Monocytes # 1.2 H PT INR APTT Sodium Potassium Chloride Carbon Dioxide BUN Glucose POC Glucose (mg/dL) 162 H 209 H Hemoglobin A1c Plasma Lactic Acid [place] Phosphorus Magnesium AST ALT Total Creatine Kinase CK-MB (CK-2) Troponin I Total Protein Albumin HDL Cholesterol 05/12/17 05/12/17 05/12/17 07:45 12:48 12:48 WBC RBC Hgb Hct Plt Count Neutrophils # Monocytes # PT INR APTT Sodium 162 H* 161 H* Potassium 3.4 L Chloride 120 H* 124 H* Carbon Dioxide BUN 54 H 57 H Glucose 194 H 207 H POC Glucose (mg/dL) Hemoglobin A1c Plasma Lactic Acid [place] Phosphorus Magnesium 2.8 H AST 148 H ALT 163 H Total Creatine Kinase CK-MB (CK-2) Troponin I Total Protein Albumin HDL Cholesterol 05/12/17 05/12/17 05/12/17 16:28 17:32 17:32 WBC 23.1 H RBC Hgb Hct 49.9 H Plt Count Neutrophils # 20.7 H Monocytes # 1.1 H PT INR APTT Sodium 162 H* Potassium 3.2 L Chloride 122 H* Carbon Dioxide BUN 56 H Glucose 252 H POC Glucose (mg/dL) 224 H Hemoglobin A1c Plasma Lactic Acid [place] Phosphorus Magnesium AST ALT Total Creatine Kinase CK-MB (CK-2) Troponin I Total Protein Albumin HDL Cholesterol 05/12/17 05/13/17 05/13/17 21:28 04:52 04:52 WBC 21.1 H RBC 5.41 H Hgb 16.6 H Hct 52.5 H Plt Count Neutrophils # 18.5 H Monocytes # 1.2 H PT INR APTT Sodium Potassium Chloride Carbon Dioxide BUN Glucose POC Glucose (mg/dL) 252 H Hemoglobin A1c Plasma Lactic Acid [place] 5.4 H* Phosphorus Magnesium AST ALT Total Creatine Kinase CK-MB (CK-2) Troponin I Total Protein Albumin HDL Cholesterol 05/13/17 05/13/17 05/13/17 06:46 07:33 08:38 WBC RBC Hgb Hct Plt Count Neutrophils # Monocytes # PT INR APTT Sodium 150 H Potassium Chloride 114 H Carbon Dioxide BUN 38 H Glucose 338 H POC Glucose (mg/dL) 334 H Hemoglobin A1c Plasma Lactic Acid [place] 3.7 H* Phosphorus 2.1 L Magnesium 2.4 H AST 72 H ALT 113 H Total Creatine Kinase CK-MB (CK-2) Troponin I Total Protein Albumin 3.4 L HDL Cholesterol 05/13/17 05/13/17 11:44 15:45 WBC RBC Hgb Hct Plt Count Neutrophils # Monocytes # PT INR APTT Sodium Potassium 3.1 L Chloride Carbon Dioxide BUN Glucose POC Glucose (mg/dL) 284 H Hemoglobin A1c Plasma Lactic Acid [place] Phosphorus Magnesium AST ALT Total Creatine Kinase CK-MB (CK-2) Troponin I Total Protein Albumin HDL Cholesterol - Diagnostic Findings Chest x-ray: image reviewed Assessment and Plan Plan: Assessment 1 Unresponsiveness, altered mentation with significant diminished level of consciousness. CAT scan of the brain is nonrevealing. Diffuse slowing on the EEG without seizure activity. Rule out metabolic encephalopathy. Rule out aseptic meningitis/encephalitis complicating overall presentation. The patient had diffuse encephalopathy. Neurology is on the case. A lumbar puncture may be needed 2 atrial fibrillation with rapid ventricular response, treated in the current rhythm is sinus 3 CHF with global hypokinesis and ejection fraction of 20% 4 non-Q-wave myocardial infarction 5 history of nonsustained ventricular tachycardia 6 hyponatremia currently on D5 water. The hyponatremia is essentially due to free water deficit 7 dementia 8 diabetes mellitus 9 hyperlipidemia 7 hypertension Plan As part of further investigation and MRI of the brain and possibly a lumbar puncture will be needed. This will be discussed with urology. A triple lumen catheter was inserted for IV access. Continue D5 water. A Dobbhoff catheter was inserted and will start the patient enteral feeding for nutritional support. Monitor electrolytes. Cardiac rhythm is sinus and the patient is currently on a combination of amiodarone, Cardizem and metoprolol. Will follow up this patient along with cardiology and neurology. Her CODE STATUS is DNR/ DNI. We'll follow. Case was discussed with the primary care physician.
[2017-05-13 18:50] LABS: Glucose,Whole Blood 151 mg/dL (75-99)
[2017-05-13] MEDS: POTASSIUM CHLORIDE ORAL LIQUID 40 MEQ/30 ML CUP NG-TUBE SCH ×2 (18:55→20:58)
[2017-05-13 19:35] LABS: INR 3.3 (<1.2); Prothrombin Time 31.8 sec (9.0-12.0)
--- NOTE | 2017-05-13 19:39 | P.PN ---
Subjective This patient is a 81-year-old female admitted with altered mental status and confusion. She is noted today to have ongoing symptoms of underlying cognitive impairment and dementia. She is able to answer only a few questions appropriately. We will continue close neurological follow-up with this patient during this admission. The patient is laying in bed and is quite confused this evening. She is not sure why she was admitted to the hospital. She was noted to continue due to mistreated evidence of confusion early this morning. As noted she did have an acute non-Q wave myocardial infarction on admission. She is being evaluated and treated by cardiology for this condition. She does have evidence of atrial fibrillation but is not a candidate for long-term anticoagulation due to her multiple risk of fall. Overall the patient seems to be doing about the same today. She does have evidence of underlying dementia as well. We will continue current neurological evaluation and monitoring of this patient. Her overall prognosis at this time remains very guarded. Her speech is fluent with no evidence of any aphasia. We will continue close neurological workup for this patient with altered mental status. She does have history of underlying dementia. According to her she was diagnosed only recently after she had failed a memory test by her primary care physician. We have explained to the that dementia does not develop over a matter of weeks or months but usually takes years. Currently she was transferred to the intensive care unit this evening as she had developed evidence of SVT. Cardiology has started her on a Cardizem drip as well as amiodarone drip. She was transferred to the ICU this evening. She remains obtunded and lethargic. She does not open her eyes. Her last computed tomography scan of the brain was completed on 05/07/2017 and failed to reveal any acute changes. We will obtain a follow-up computed tomography scan of the brain today. She is unable to have an MRI of the brain that she has a pacemaker. Patient underwent computed tomography scan of the brain today. CAT scan reveals evidence of cerebral atrophy. There was no acute intracranial abnormality. 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 The patient remains obtunded in the ICU. She is still not opening her eyes according to the ICU nursing staff. She remains lethargic but moving all extremities. We have discussed in detail with the son yesterday that sudden decline in her potential for dementia would not explain her current findings. We have recommended to consider undergoing lumbar puncture for this patient to rule out any possibility of encephalitis and /or meningitis. She has remained afebrile in the ICU setting. We have obtained consent for lumbar puncture today from the son. We will arrange for LP to be done today for further evaluation. Her overall prognosis at this time remains guarded. We will continue close neurological follow-up with this patient in the intensive care unit. Objective - Vital Signs Vital signs: Vital Signs Temp 98.4 F 05/13/17 12:00 Pulse 81 05/13/17 13:00 Resp 32 H 05/13/17 13:00 BP 90/56 05/13/17 13:00 Pulse Ox 93 L 05/13/17 13:00 Intake & Output 05/12/17 05/13/17 05/13/17 18:59 06:59 18:59 Intake Total 2095.917 1521.628 Output Total 200 1155 695 Balance -200 940.917 826.628 Weight 44.6 kg 44.6 kg Intake: IV 1700 1425 Dextrose 5% in Water 1, 1500 000 ml @ 150 mls/hr IV . Q6H40M [facility] Rx#:[id number] Dextrose 5% in Water 1, 200 1425 000 ml @ 75 mls/hr IV . [id number] [facility] Rx#:[id number] Intake, IV Titration 395.917 96.628 Amount Amiodarone 450 mg In 279.417 96.628 Dextrose 5% in Water 250 ml @ 1 MG/MIN 33.33 mls/ hr IV .Q7H31M [facility] Rx#: [id number] Diltiazem 125 mg In 116.5 Sodium Chloride 0.9% 100 ml @ 10 MG/HR 10 mls/hr IV .[id number] [facility] Rx#: [id number] Output: Urine 200 1155 695 Other: Voiding Method Indwelling Catheter Indwelling Catheter Indwelling Catheter # Voids 2 2 # Bowel Movements 0 - Exam Physical examination: PHYSICAL EXAMINATION: Patient is resting comfortably in bed. VITAL SIGNS: Blood pressure is [90/56]. Heart rate is [81]. Respiration is [32] . Temperature is [98.4]. HEENT: Head is atraumatic, neck is supple, there were no carotid bruits. CHEST: Lungs are clear to auscultation and percussion. CARDIAC: S1, S2 normal rate and rhythm. There is no murmur. ABDOMEN: Soft and nontender. Bowel sounds are present. EXTREMITIES: There is no pedal edema. Peripheral pulses are present. Neurological examination: Patient is awake alert and oriented 1 only. Her speech is slow but fluent. Her memory and intellectual functions are impaired. The patient is not opening her eyes during examination in the ICU. She is not combative but seems to be very restless. She has no evidence of nuchal rigidity or meningismus on examination. Her remaining neurological examination is unchanged from yesterday. We will continue close neurological follow-up of this patient in the ICU setting. - Labs CBC & Chem 7: 05/13/17 04:52 05/13/17 15:45 Labs: Abnormal Lab Results - Last 24 Hours (Table) 05/12/17 05/12/17 05/13/17 Range/Units 17:32 21:28 04:52 WBC 21.1 H (3.8-10.6) k/uL RBC 5.41 H (3.80-5.40) m/uL Hgb 16.6 H (11.4-16.0) gm/dL Hct 52.5 H (34.0-46.0) % Neutrophils # 18.5 H (1.3-7.7) k/uL Monocytes # 1.2 H (0-1.0) k/uL Sodium 162 H* (137-145) mmol/L Potassium 3.2 L (3.5-5.1) mmol/L Chloride 122 H* (98-107) mmol/L BUN 56 H (7-17) mg/dL Glucose 252 H (74-99) mg/dL POC Glucose (mg/dL) 252 H (75-99) mg/dL Plasma Lactic Acid [place] (0.7-2.0) mmol/L Phosphorus (2.5-4.5) mg/dL Magnesium (1.6-2.3) mg/dL AST (14-36) U/L ALT (9-52) U/L Albumin (3.5-5.0) g/dL 05/13/17 05/13/17 05/13/17 Range/Units 04:52 06:46 07:33 WBC (3.8-10.6) k/uL RBC (3.80-5.40) m/uL Hgb (11.4-16.0) gm/dL Hct (34.0-46.0) % Neutrophils # (1.3-7.7) k/uL Monocytes # (0-1.0) k/uL Sodium 150 H (137-145) mmol/L Potassium (3.5-5.1) mmol/L Chloride 114 H (98-107) mmol/L BUN 38 H (7-17) mg/dL Glucose 338 H (74-99) mg/dL POC Glucose (mg/dL) 334 H (75-99) mg/dL Plasma Lactic Acid Everett 5.4 H* (0.7-2.0) mmol/L Phosphorus 2.1 L (2.5-4.5) mg/dL Magnesium 2.4 H (1.6-2.3) mg/dL AST 72 H (14-36) U/L ALT 113 H (9-52) U/L Albumin 3.4 L (3.5-5.0) g/dL 05/13/17 05/13/17 05/13/17 Range/Units 08:38 11:44 15:45 WBC (3.8-10.6) k/uL RBC (3.80-5.40) m/uL Hgb (11.4-16.0) gm/dL Hct (34.0-46.0) % Neutrophils # (1.3-7.7) k/uL Monocytes # (0-1.0) k/uL Sodium (137-145) mmol/L Potassium 3.1 L (3.5-5.1) mmol/L Chloride (98-107) mmol/L BUN (7-17) mg/dL Glucose (74-99) mg/dL POC Glucose (mg/dL) 284 H (75-99) mg/dL Plasma Lactic Acid Everett 3.7 H* (0.7-2.0) mmol/L Phosphorus (2.5-4.5) mg/dL Magnesium (1.6-2.3) mg/dL AST (14-36) U/L ALT (9-52) U/L Albumin (3.5-5.0) g/dL Assessment and Plan (1) Acute encephalopathy Status: Acute Code(s): G93.40 - ENCEPHALOPATHY, UNSPECIFIED (2) Dementia Status: Acute Code(s): F03.90 - UNSPECIFIED DEMENTIA WITHOUT BEHAVIORAL DISTURBANCE (3) NSTEMI (non-ST elevated myocardial infarction) Status: Acute Code(s): I21.4 - NON-ST ELEVATION (NSTEMI) MYOCARDIAL INFARCTION (4) Near syncope Status: Acute Code(s): R55 - SYNCOPE AND COLLAPSE Plan: This patient is a 81-year-old female who was initially admitted to Hospital with symptoms of chest pain and altered mental status. Patient continued to show evidence of worsening mental status changes since her admission to the hospital. She was recently being diagnosed and worked up for underlying dementia. Patient was seen by cardiology and she was diagnosed as having an acute non-ST segment elevation myocardial infarction. She also has a severely impaired LV function with an ejection fraction of less than 20% on echocardiogram study. She also has chronic atrial fibrillation. She is unable to go for MRI she also has a pacemaker. She has remained quite confused. She underwent a repeat computed tomography scan of the brain today the results of which are noted above. CAT scan fails to reveal any evidence of acute stroke or hemorrhage. There is evidence of an old left insular infarct. Patient remains somewhat obtunded with no clear evidence of her underlying etiology for severe encephalopathy. We did discuss her findings in detail with the son yesterday in the ICU. We have explained that her dementia would not worsen significantly in a period of a few weeks. We have recommended today for the patient to be considered for lumbar puncture for further evaluation to rule out possibility of encephalitis and/or meningitis. The son was contacted today for consent to proceed with LP and this was given to us over the phone. The patient does remain afebrile. She is still not opening her eyes very much since reevaluation yesterday. She does have evidence of underlying moderate to severe encephalopathy based on her recent EEG. We will continue close neurological follow-up of this patient in the intensive care unit. As noted we would like to proceed with lumbar puncture to rule out any other possible etiologies for her acute mental status changes. Case was discussed today with Dr. Viera. He is in full agreement to proceed with LP for this patient. Overall prognosis at this time remains very guarded. We will continue close neurological follow-up of this patient in the intensive care unit.
--- NOTE | 2017-05-13 19:41 | PCN ---
PROCEDURE NOTE DATE OF EE05/12/2017. REFERRING PHYSICIAN: Dr. Arango. INTERPRETING PHYSICIAN: Dr. Sergio Brito MD. Room number is ICU 616 bed 2. PROCEDURE: Electroencephalographic examination report INDICATION FOR EXAMINATION: This patient is a 81-year-old female being evaluated for altered mental status and worsening confusion. A[age]: [age]. FINDINGS: A routine 21 channel away a digital EEG recording was accomplished utilizing the 10-20 international system with bipolar and referential montages. The background activity in the most alert resting state consists of a low to medium amplitude, poorly developed and poorly sustained 4 Hz activity over the posterior head regions. This posterior rhythm attenuates minimally to eye opening. There is a moderate amount of low amplitude 18-20 hertz beta activity seen maximally over the anterior head regions. Muscle and movement artifact was observed on a few occasions during the tracing. Hypoventilation was not performed. Photic stimulation at flash frequencies 2-30 Hz produced a minimal occipital driving response. No epileptiform discharges were seen. IMPRESSION: This EEG gives evidence of a severe widespread diffuse disturbance in cerebral function. The EEG failed to reveal any focal, lateralizing, or epileptiform abnormalities. Clinical correlation is recommended. MMODL / IJN: [id number] /
[2017-05-13] MEDS ORDERED: PHYTONADIONE 10 MG in SODIUM CHLORIDE 0.9% 50 ML IVPB STA (20:04)
[2017-05-13] MEDS: ATORVASTATIN 20 MG TAB PO SCH (20:57)
[2017-05-14] MEDS: INSULIN GLARGINE 100 UNIT/ML 10 ML VIAL SQ SCH ×2 (00:20→22:21)
[2017-05-14] MEDS: INSULIN LISPRO (humaLOG) 300 UNIT/3 ML VIAL SQ SCH ×5 (00:28→18:19)
[2017-05-14 00:29] LABS: Glucose,Whole Blood 230 mg/dL (75-99)
[2017-05-14] MEDS: METOPROLOL TARTRATE 5 MG/5 ML VIAL IVP SCH ×3 (00:30→15:44)
[2017-05-14] MEDS: DEXTROSE 5% IN WATER 1,000 ML IV SCH ×2 (02:28→10:21)
[2017-05-14 07:06] LABS: Glucose,Whole Blood 237 mg/dL (75-99)
--- NOTE | 2017-05-14 07:12 | XR ---
EXAMINATION TYPE: XR chest 1V DATE OF EXAM: 05/14/2017 CLINICAL HISTORY: Difficulty breathing progress study. TECHNIQUE: Single AP portable upright view of the chest is obtained. COMPARISON: Chest x-ray from one day earlier FINDINGS: A Dobbhoff feeding catheter and right internal jugular central venous catheter are stable in appearance. Surgical clips epigastric region are redemonstrated. There is persistent mild cardiome suzette with single lead pacemaker. There is suspected mild central vascular congestion. There is no new suspicious focal airspace opacity, pleural effusion, or pneumothorax seen bilaterally. Osseous struc tures are demineralized. IMPRESSION: Overall stable findings, cardiomegaly with perhaps mild central vascular congestion wit hout suspicious focal infiltrate clearly seen.
[2017-05-14] MEDS: ASPIRIN 81 MG PO SCH (08:30)
[2017-05-14] MEDS: ENOXAPARIN 40 MG/0.4 ML SYRINGE SQ SCH (08:31)
[2017-05-14] MEDS: AMIODARONE 450 MG in DEXTROSE 5% IN WATER 250 ML IV SCH ×2 (09:08)
[2017-05-14] MEDS: DILTIAZEM 125 MG in SODIUM CHLORIDE 0.9% 100 ML IV SCH ×2 (09:08→09:14)
[2017-05-14 09:51] LABS: Basophils % (A) 0 %; CHCM 32.3; Eosinophils # (A) 0.1 k/uL (0-0.7); Eosinophils % (A) 1 %; HCT 38.5 % (34.0-46.0); HDW 2.31; Luc % (Auto) 1; Lymphocytes # (A) 1.2 k/uL (1.0-4.8); Lymphocytes % (A) 7 %; MCH 30.7 pg (25.0-35.0); MCV 93.1 fL (80.0-100.0); Mean Platelet Volume 7.8; Monocytes # (A) 0.7 k/uL (0-1.0); Monocytes % (A) 4 %; Neutrophils # (A) 13.7 k/uL (1.3-7.7); Neutrophils % (A) 87 %; RBC 4.13 m/uL (3.80-5.40); WBC 15.8 k/uL (3.8-10.6); WBC (Perox) 16.88
[2017-05-14 09:56] LABS: INR 1.4 (<1.2); Prothrombin Time 13.7 sec (9.0-12.0)
[2017-05-14 09:59] LABS: HGB 12.7 gm/dL (11.4-16.0)
[2017-05-14 10:01] LABS: ALT 70 U/L (9-52); AST 30 U/L (14-36); Alkaline Phosphatase 51 U/L (38-126); Anion Gap 7 mmol/L; Blood Urea Nitrogen 18 mg/dL (7-17); Calcium 8.7 mg/dL (8.4-10.2); Carbon Dioxide 28 mmol/L (22-30); Chloride 107 mmol/L (98-107); Glucose 216 mg/dL (74-99); Magnesium 2.1 mg/dL (1.6-2.3); Non-African American GFR(MDRD) >60 (>60 ml/min/1.73 sqM); Phosphorous 1.9 mg/dL (2.5-4.5); Potassium 3.5 mmol/L (3.5-5.1); Sodium 142 mmol/L (137-145); Total Bilirubin 0.9 mg/dL (0.2-1.3); Total Protein 5.9 g/dL (6.3-8.2)
[2017-05-14] MEDS ORDERED: Phosphorus Replacement Protoco 1 EACH MISC MISCELLANE PRN (10:07)
--- NOTE | 2017-05-14 10:15 | P.PN ---
Subjective An 81-year-old female patient with known history of dementia who was admitted to the hospital because of chest pain. Her son who is the primary caregiver noted that the patient was complaining of chest discomfort. The patient was brought into the emergency department because of chest pain. A cardiology evaluation was done and the patient was diagnosed having a acute non-ST segment elevation myocardial infarction. She has a severely impaired LV function with an ejection fraction of less than 20% based on echocardiogram study. She also has a chronic atrial fibrillation. During the same hospitalization the patient was found to be quite confused and she continued to have altered mental status and progressively became completely unresponsive. The patient was brought in to the intensive care yesterday as her cardiac rhythm went tachycardic and the patient was brought in for a potential problem of an SVT. I do not see was given during a emergency situation and the patient did not respond an underlying rhythm was reviewed and seems that the patient was in a flutter rhythm. I think that the patient was in a combination of tachycardia in the setting of atrial fibrillation/flutter. In the ICU, the patient was given Cardizem drip and beta blockers. The heart rate slowed down and currently she is back to normal sinus. She remained hemodynamically stable throughout this event. Neurologically however the patient remains unresponsive. Neurology is following the patient had psychiatry is following the patient. At one point she was thought to be catatonic and she was given a trial of Ativan which again failed to improve her condition. CAT scan of the brain has been done on admission and a repeat CAT scan of the brain was done this afternoon and it showed cerebral atrophy without any acute intracranial abnormalities. No neck stiffness. No fever. 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 The EEG also showed severe widespread diffuse disturbance of cerebral function without any evidence of focal lateralized or epileptiform abnormalities. No seizure activity has been noted. Also, the patient was found to be profoundly hyponatremic. The sodium level was around 161 and she was started on D5 water initially at 100 mL which I increased up to 150 and earlier this morning her sodium level came down to 150. She also had a component of acute kidney injury secondary to intravascular volume depletion and this is also improving. A triple lumen catheter inserted knowing that the patient had a poor IV access. A Dobbhoff catheter was also inserted for enteral feeding. The patient was seen again today 05/14/2017 in follow-up in the intensive care unit. She continues to wax and wane in regards to her mental status. She does seem a little more alert today as compared to yesterday. She continues with a loose nonproductive cough. Chest x-ray reveals some mild central venous congestion without suspicious focal infiltrates. Her heart rate is better controlled. The diltiazem drip was discontinued. She remains on amiodarone at 0.5 mg per hour. Currently in sinus rhythm. She's been hemodynamically stable. Not on any pressors. She is afebrile. She is being followed by neurology who was planning a lumbar puncture today. Her INR was corrected to 1.4 via vitamin K and fresh frozen plasma. Objective - Vital Signs Vital signs: Vital Signs Temp 97.9 F 05/14/17 06:41 Pulse 76 05/14/17 09:00 Resp 18 05/14/17 09:00 BP 111/62 05/14/17 09:00 Pulse Ox 97 05/14/17 09:00 Intake & Output 05/13/17 05/14/17 05/14/17 18:59 06:59 18:59 Intake Total 3519.901 0937 522 Output Total 835 465 190 Balance 597.268 7545 332 Weight 44.6 kg 56.2 kg Intake: IV 1650 900 225 Dextrose 5% in Water 1, 1650 900 225 000 ml @ 75 mls/hr IV . [id number] [facility] Rx#:[id number] Intake, IV Titration 108.795 50 Amount Amiodarone 450 mg In 96.628 Dextrose 5% in Water 250 ml @ 1 MG/MIN 33.33 mls/ hr IV .Q7H31M [facility] Rx#: [id number] Diltiazem 125 mg In 12.167 Sodium Chloride 0.9% 100 ml @ 10 MG/HR 10 mls/hr IV .[id number] [facility] Rx#: [id number] Phytonadione 10 mg In 50 Sodium Chloride 0.9% 50 ml @ 100 mls/hr IVPB ONCE [facility] Rx#:[id number] Tube Feeding 20 110 30 Blood Product 869 237 Ffp 24 Cp2d Unit 0 237 [id number] Ffp 24 Cpd Unit 313 [id number] Other 30 Output: Urine 835 465 190 Other: Voiding Method Indwelling Catheter Indwelling Catheter # Voids 2 # Bowel Movements 0 0 - Exam The patient will open her eyes to loud verbal command. mainly nonverbal. She'll occasionally withdraws to painful stimuli. Neurologically, there is no facial asymmetry, pupils around 3-4 mm in size and sluggishly reactive to light. No nystagmus or a preferential gaze. She has a weak gag. The patient is moving all 4 extremities. No Babinski. No clonus. DTRs are +1 and symmetrical. Sensory function cannot be accurately assessed. Motor function cannot be accurately assessed. Speech cannot be accurately assessed. The patient is moaning and groaning.Head exam was generally normal. There was no scleral icterus or corneal arcus. Mucous membranes were moist. Neck is supple and there is no JVDs no goiter or neck masses. Lungs sounds are diminished otherwise clear. Vessels are equal and symmetrical bilaterally. Heart sounds are irregular at times however at the time of my evaluation to sinus. Positive S1-S2. No cervical murmurs appreciated.Abdominal exam revealed normal bowel sounds. The abdomen was soft, non-tender, and without masses, organomegaly, or appreciable enlargement of the abdominal aorta.Examination of the extremities revealed easily palpable radial, femoral and pedal pulses. There was no cyanosis , clubbing or edema. - Labs CBC & Chem 7: 05/13/17 04:52 05/13/17 15:45 Labs: Abnormal Lab Results - Last 24 Hours (Table) 05/13/17 05/13/17 05/13/17 Range/Units 11:44 15:45 18:48 PT (9.0-12.0) sec INR (<1.2) Potassium 3.1 L (3.5-5.1) mmol/L POC Glucose (mg/dL) 284 H 151 H (75-99) mg/dL 05/13/17 05/14/17 05/14/17 Range/Units 19:15 00:15 07:04 PT 31.8 H (9.0-12.0) sec INR 3.3 H (<1.2) Potassium (3.5-5.1) mmol/L POC Glucose (mg/dL) 230 H 237 H (75-99) mg/dL 05/14/17 Range/Units 09:37 PT 13.7 H (9.0-12.0) sec INR 1.4 H (<1.2) Potassium (3.5-5.1) mmol/L POC Glucose (mg/dL) (75-99) mg/dL Microbiology - Last 24 Hours (Table) 05/13/17 06:46 Blood Culture - Preliminary Blood No Growth after 24 hours Assessment and Plan Plan: Assessment 1 Altered mentation with significant diminished level of consciousness. CAT scan of the brain is nonrevealing. Diffuse slowing on the EEG without seizure activity. Rule out metabolic encephalopathy. Rule out aseptic meningitis/ encephalitis complicating overall presentation. The patient had diffuse encephalopathy. Neurology is on the case. A lumbar puncture may be needed 2 atrial fibrillation with rapid ventricular response, treated in the current rhythm is sinus 3 CHF with global hypokinesis and ejection fraction of 20% 4 non-Q-wave myocardial infarction 5 history of nonsustained ventricular tachycardia 6 hyponatremia currently on D5 water. The hyponatremia is essentially due to free water deficit 7 dementia 8 diabetes mellitus 9 hyperlipidemia 7 hypertension Plan: The patient was seen and evaluated by Dr. Viera. Her chest x-ray and labs were reviewed. We will continue to monitor her here closely in the intensive care unit. We'll continue to follow. She seems slightly improved today as compared to yesterday but still significantly altered. The plan is for lumbar puncture today per neurology. She is being nourished via the Dobbhoff gastric catheter. We will continue to follow her here closely in the intensive care unit.
[2017-05-14] MEDS ORDERED: FUROSEMIDE 10 MG/ML 4 ML VIAL IV STA (11:16)
--- NOTE | 2017-05-14 11:19 | P.PN ---
Subjective Patient's overall condition is improving. She is more awake today. She is still not making purposeful movement or answering any questions. Computed tomography scan of the brain done yesterday showed no acute findings. Lab work is improving overall. Objective - Vital Signs Vital signs: Vital Signs Temp 97.9 F 05/14/17 06:41 Pulse 77 05/14/17 11:00 Resp 24 05/14/17 11:00 BP 124/70 05/14/17 11:00 Pulse Ox 99 05/14/17 11:00 Intake & Output 05/13/17 05/14/17 05/14/17 18:59 06:59 18:59 Intake Total 9720.690 7529 862 Output Total 835 465 265 Balance 204.859 3213 597 Weight 44.6 kg 56.2 kg Intake: IV 1650 900 475 Dextrose 5% in Water 1, 1650 900 375 000 ml @ 75 mls/hr IV . [id number] [facility] Rx#:[id number] Potassium Phosphate 10 100 mmol In Sodium Chloride 0 .9% 100 ml @ 50 mls/hr IV Q2H [facility] Rx#:[id number] Intake, IV Titration 108.795 50 Amount Amiodarone 450 mg In 96.628 Dextrose 5% in Water 250 ml @ 1 MG/MIN 33.33 mls/ hr IV .Q7H31M [facility] Rx#: [id number] Diltiazem 125 mg In 12.167 Sodium Chloride 0.9% 100 ml @ 10 MG/HR 10 mls/hr IV .[id number] [facility] Rx#: [id number] Phytonadione 10 mg In 50 Sodium Chloride 0.9% 50 ml @ 100 mls/hr IVPB ONCE [facility] Rx#:[id number] Tube Feeding 20 110 120 Blood Product 869 237 Ffp 24 Cp2d Unit 0 237 [id number] Ffp 24 Cpd Unit 313 [id number] Other 30 Output: Urine 835 465 265 Other: Voiding Method Indwelling Catheter Indwelling Catheter Indwelling Catheter # Voids 2 # Bowel Movements 0 0 - Exam General: The patient is awake but appeared confused. She is not answering any questions. She is not making any purposeful movement. Neck: The neck is supple, there is no JVD. Cardiovascular: Normal S1-S2, no S3-S4, no murmurs. Respiratory: Lungs with diffuse rhonchi and rales all over the chest Gastrointestinal: Abdomen is soft, nontender Musculoskeletal: There is no pedal edema. Skin: Skin is warm and dry - Labs CBC & Chem 7: 05/14/17 09:37 05/14/17 09:37 Labs: Abnormal Lab Results - Last 24 Hours (Table) 05/13/17 05/13/17 05/13/17 Range/Units 11:44 15:45 18:48 WBC (3.8-10.6) k/uL Neutrophils # (1.3-7.7) k/uL PT (9.0-12.0) sec INR (<1.2) Potassium 3.1 L (3.5-5.1) mmol/L BUN (7-17) mg/dL Glucose (74-99) mg/dL POC Glucose (mg/dL) 284 H 151 H (75-99) mg/dL Phosphorus (2.5-4.5) mg/dL ALT (9-52) U/L Total Protein (6.3-8.2) g/dL Albumin (3.5-5.0) g/dL 05/13/17 05/14/17 05/14/17 Range/Units 19:15 00:15 07:04 WBC (3.8-10.6) k/uL Neutrophils # (1.3-7.7) k/uL PT 31.8 H (9.0-12.0) sec INR 3.3 H (<1.2) Potassium (3.5-5.1) mmol/L BUN (7-17) mg/dL Glucose (74-99) mg/dL POC Glucose (mg/dL) 230 H 237 H (75-99) mg/dL Phosphorus (2.5-4.5) mg/dL ALT (9-52) U/L Total Protein (6.3-8.2) g/dL Albumin (3.5-5.0) g/dL 05/14/17 05/14/17 05/14/17 Range/Units 09:37 09:37 09:37 WBC 15.8 H (3.8-10.6) k/uL Neutrophils # 13.7 H (1.3-7.7) k/uL PT 13.7 H (9.0-12.0) sec INR 1.4 H (<1.2) Potassium (3.5-5.1) mmol/L BUN 18 H (7-17) mg/dL Glucose 216 H (74-99) mg/dL POC Glucose (mg/dL) (75-99) mg/dL Phosphorus 1.9 L (2.5-4.5) mg/dL ALT 70 H (9-52) U/L Total Protein 5.9 L (6.3-8.2) g/dL Albumin 3.1 L (3.5-5.0) g/dL Microbiology - Last 24 Hours (Table) 05/13/17 06:46 Blood Culture - Preliminary Blood No Growth after 24 hours Assessment and Plan Plan: 1. Acute toxo metabolic encephalopathy 2. Hypovolemic hypernatremia, improving 3. Severe dehydration 4. Starvation ketosis with elevated lactic acid, resolved 5. Acute Non-Q-wave myocardial infarction present on admission: She has been evaluated by cardiology the recommending medical management. 6. supraventricular tachycardia seen and evaluated by cardiology now on IV amiodarone drip. Heart rate well controlled. 7. history of Atrial fibrillation with rapid ventricular response: now receiving IV metoprolol Patient not a good candidate for anticoagulation because of her risks of multiple falls 8. Hyperlipidemia continue statin 9. Acute on chronic systolic CHF: last Echo shows an EF of less than 20%. 10. Diabetes mellitus type 2: Hemoglobin A1c of 6.9. add Lantus 10 units once a day and continue sliding scale insulin 11. Dementia/underlying cognitive impairment 12. Essential hypertension 13. Generalized anxiety disorder Today, I reviewed her medication list and lab work results. Change IV fluid to D5 half-normal saline at 75 mL per hour. Continue NG tube feeding. Computed tomography scan of the brain done yesterday showed no acute findings. We will give 1 dose of Lasix 40 mg IV. Continue ICU care. No family members at bedside to be updated.
[2017-05-14 12:26] LABS: Glucose,Whole Blood 195 mg/dL (75-99)
[2017-05-14] MEDS ORDERED: PHYTONADIONE 5 MG in SODIUM CHLORIDE 0.9% 50 ML IVPB STA (13:09)
[2017-05-14] MEDS: DEXTROSE 5%-0.45% NACL 1,000 ML IV SCH (13:10)
[2017-05-14] MEDS: POTASSIUM PHOSPHATE 10 MMOL in SODIUM CHLORIDE 0.9% 100 ML IV SCH ×2 (13:10→13:19)
[2017-05-14 13:19] LABS: Glucose,Whole Blood 213 mg/dL (75-99)
--- NOTE | 2017-05-14 13:35 | PCN ---
PROCEDURE NOTE PRE-PROCEDURE DIAGNOSIS:: Poor IV access, dehydration/hypovolemia. POST PROCEDURE DIAGNOSIS:: Poor IV access, dehydration/hypovolemia. PROCEDURE:: Insertion of a triple-lumen catheter. INDICATIONS:: Indication: Hemodynamic monitoring/Intravenous access. PROCEDURE:: Site of insertion: Right internal jugular. A time-out was completed verifying correct patient, procedure, site, positioning, and implant(s) or special equipment if applicable. The patient was placed in a dependent position appropriate for triple lumen catheter placement based on the vein to be cannulated. The patient's right/left shoulder or right/left neck or right/left groin was prepped and draped in sterile fashion. 1% Lidocaine was used to anesthetize the surrounding skin area. A triple lumen 9F Cordis catheter was introduced into the subclavian or internal jugular or common femoral vein using Seldinger technique. The catheter was threaded smoothly over the guide wire and appropriate blood return was obtained. Each lumen of the catheter was evacuated of air and flushed with sterile saline. The catheter was then sutured in place to the skin and a sterile dressing applied. Perfusion to the extremity distal to the point of catheter insertion was checked and found to be adequate. No complications or bleeding. Chest x-ray showed no pneumothorax. MMODL / IJN: [id number] /
--- NOTE | 2017-05-14 14:07 | P.PN ---
Subjective Patient is still obtunded. Blood pressure is normal heart rates are normal she did of atrial fibrillation and was treated with IV and amiodarone and IV Cardizem. She is back in sinus rhythm Breath sounds are reduced bilaterally No rhonchi or crackles Heart sounds S1 and S2 are soft and regular Impression Patient initially admitted with chest pain and non-Q-wave myocardial infarction History of hypertension has been difficult to control as an outpatient History of anxiety disorder History of requesting dementia as an outpatient History of atrial tachycardia Sick sinus syndrome status post permanent pacemaker implantation Patient's mental status has deteriorated in the hospital Suggest Stop amiodarone. Diltiazem Continue IV metoprolol DVT prophylaxis Per rectal aspirin Objective - Vital Signs Vital signs: Vital Signs Temp 97.8 F 05/14/17 12:00 Pulse 92 05/14/17 14:00 Resp 21 05/14/17 14:00 BP 137/75 05/14/17 14:00 Pulse Ox 92 L 05/14/17 14:00 Intake & Output 05/13/17 05/14/17 05/14/17 18:59 06:59 18:59 Intake Total 0715.968 0557 1357 Output Total 534 622 3839 Balance 687.387 4294 157 Weight 44.6 kg 56.2 kg Intake: IV 1650 900 850 Dextrose 5% in Water 1, 1650 900 375 000 ml @ 75 mls/hr IV . [id number] [facility] Rx#:[id number] Dextrose 5%-0.45% NaCl 1, 225 000 ml @ 75 mls/hr IV . [id number] [facility] Rx#:[id number] Phytonadione 5 mg In 50 Sodium Chloride 0.9% 50 ml @ 100 mls/hr IVPB ONCE STA Rx#:[id number] Potassium Phosphate 10 200 mmol In Sodium Chloride 0 .9% 100 ml @ 50 mls/hr IV Q2H [facility] Rx#:[id number] Intake, IV Titration 108.795 50 Amount Amiodarone 450 mg In 96.628 Dextrose 5% in Water 250 ml @ 1 MG/MIN 33.33 mls/ hr IV .[id number] [facility] Rx#: [id number] Diltiazem 125 mg In 12.167 Sodium Chloride 0.9% 100 ml @ 10 MG/HR 10 mls/hr IV .[id number] [facility] Rx#: [id number] Phytonadione 10 mg In 50 Sodium Chloride 0.9% 50 ml @ 100 mls/hr IVPB ONCE STA Rx#:[id number] Tube Feeding 20 110 210 Blood Product 869 237 Ffp 24 Cp2d Unit 0 237 [id number] Ffp 24 Cpd Unit 313 [id number] Other 60 Output: Urine 715 351 1925 Other: Voiding Method Indwelling Catheter Indwelling Catheter Indwelling Catheter # Voids 2 # Bowel Movements 0 0 - Labs CBC & Chem 7: 05/14/17 09:37 05/14/17 09:37 Labs: Abnormal Lab Results - Last 24 Hours (Table) 05/13/17 05/13/17 05/13/17 Range/Units 15:45 18:48 19:15 WBC (3.8-10.6) k/uL Neutrophils # (1.3-7.7) k/uL PT 31.8 H (9.0-12.0) sec INR 3.3 H (<1.2) Potassium 3.1 L (3.5-5.1) mmol/L BUN (7-17) mg/dL Glucose (74-99) mg/dL POC Glucose (mg/dL) 151 H (75-99) mg/dL Phosphorus (2.5-4.5) mg/dL ALT (9-52) U/L Total Protein (6.3-8.2) g/dL Albumin (3.5-5.0) g/dL 05/14/17 05/14/17 05/14/17 Range/Units 00:15 07:04 09:37 WBC 15.8 H (3.8-10.6) k/uL Neutrophils # 13.7 H (1.3-7.7) k/uL PT (9.0-12.0) sec INR (<1.2) Potassium (3.5-5.1) mmol/L BUN (7-17) mg/dL Glucose (74-99) mg/dL POC Glucose (mg/dL) 230 H 237 H (75-99) mg/dL Phosphorus (2.5-4.5) mg/dL ALT (9-52) U/L Total Protein (6.3-8.2) g/dL Albumin (3.5-5.0) g/dL 05/14/17 05/14/17 05/14/17 Range/Units 09:37 09:37 12:24 WBC (3.8-10.6) k/uL Neutrophils # (1.3-7.7) k/uL PT 13.7 H (9.0-12.0) sec INR 1.4 H (<1.2) Potassium (3.5-5.1) mmol/L BUN 18 H (7-17) mg/dL Glucose 216 H (74-99) mg/dL POC Glucose (mg/dL) 195 H (75-99) mg/dL Phosphorus 1.9 L (2.5-4.5) mg/dL ALT 70 H (9-52) U/L Total Protein 5.9 L (6.3-8.2) g/dL Albumin 3.1 L (3.5-5.0) g/dL 05/14/17 Range/Units 13:17 WBC (3.8-10.6) k/uL Neutrophils # (1.3-7.7) k/uL PT (9.0-12.0) sec INR (<1.2) Potassium (3.5-5.1) mmol/L BUN (7-17) mg/dL Glucose (74-99) mg/dL POC Glucose (mg/dL) 213 H (75-99) mg/dL Phosphorus (2.5-4.5) mg/dL ALT (9-52) U/L Total Protein (6.3-8.2) g/dL Albumin (3.5-5.0) g/dL Microbiology - Last 24 Hours (Table) 05/13/17 06:46 Blood Culture - Preliminary Blood No Growth after 24 hours
[2017-05-14 18:08] LABS: INR 1.2 (<1.2); Prothrombin Time 12.3 sec (9.0-12.0)
[2017-05-14 18:19] LABS: Glucose,Whole Blood 200 mg/dL (75-99)
[2017-05-14] MEDS ORDERED: POTASSIUM CHLORIDE 20 MEQ in WATER FOR INJECTION 1 100ML.BAG IVPB ONE (18:27)
[2017-05-14] MEDS ORDERED: LORazepam 2 MG/ML SYRINGE IV STA (22:00)
--- NOTE | 2017-05-14 22:06 | P.PN ---
Subjective This patient is a 81-year-old female admitted with altered mental status and confusion. She is noted today to have ongoing symptoms of underlying cognitive impairment and dementia. She is able to answer only a few questions appropriately. We will continue close neurological follow-up with this patient during this admission. The patient is laying in bed and is quite confused this evening. She is not sure why she was admitted to the hospital. She was noted to continue due to mistreated evidence of confusion early this morning. As noted she did have an acute non-Q wave myocardial infarction on admission. She is being evaluated and treated by cardiology for this condition. She does have evidence of atrial fibrillation but is not a candidate for long-term anticoagulation due to her multiple risk of fall. Overall the patient seems to be doing about the same today. She does have evidence of underlying dementia as well. We will continue current neurological evaluation and monitoring of this patient. Her overall prognosis at this time remains very guarded. Her speech is fluent with no evidence of any aphasia. We will continue close neurological workup for this patient with altered mental status. She does have history of underlying dementia. According to her she was diagnosed only recently after she had failed a memory test by her primary care physician. We have explained to the that dementia does not develop over a matter of weeks or months but usually takes years. Currently she was transferred to the intensive care unit this evening as she had developed evidence of SVT. Cardiology has started her on a Cardizem drip as well as amiodarone drip. She was transferred to the ICU this evening. She remains obtunded and lethargic. She does not open her eyes. Her last computed tomography scan of the brain was completed on 05/07/2017 and failed to reveal any acute changes. We will obtain a follow-up computed tomography scan of the brain today. She is unable to have an MRI of the brain that she has a pacemaker. Patient underwent computed tomography scan of the brain today. CAT scan reveals evidence of cerebral atrophy. There was no acute intracranial abnormality. 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 The patient remains obtunded in the ICU. She is still not opening her eyes according to the ICU nursing staff. She remains lethargic but moving all extremities. We have discussed in detail with the son yesterday that sudden decline in her potential for dementia would not explain her current findings. We have recommended to consider undergoing lumbar puncture for this patient to rule out any possibility of encephalitis and /or meningitis. She has remained afebrile in the ICU setting. We have obtained consent for lumbar puncture today from the son. We will arrange for LP to be done today for further evaluation. We did attempt to do a lumbar puncture at her bedside in the ICU today. Due to her agitation and movement the LP was unsuccessful. We will consult anesthesia for tomorrow morning to attempt a lumbar puncture for further evaluation. Spinal fluid analysis orders were given to the ICU nurses evening. Overall the patient does show improvement in her level of consciousness as compared to yesterday. She is more talkative today. We will complete R evaluation with the spinal fluid analysis hopefully to be completed tomorrow. We have discussed these findings in detail today with his son who was at bedside. Her overall prognosis at this time remains guarded. We will continue close neurological follow-up with this patient in the intensive care unit. Objective - Vital Signs Vital signs: Vital Signs Temp 98.2 F 05/14/17 16:00 Pulse 99 05/14/17 19:00 Resp 19 05/14/17 19:00 BP 111/62 05/14/17 19:00 Pulse Ox 95 05/14/17 19:00 Intake & Output 05/14/17 05/14/17 05/15/17 06:59 18:59 06:59 Intake Total 1929 1807 75 Output Total 465 2650 40 Balance 1464 -843 35 Weight 56.2 kg Intake: IV 900 1150 75 Dextrose 5% in Water 1, 900 375 000 ml @ 75 mls/hr IV . [id number] [facility] Rx#:[id number] Dextrose 5%-0.45% NaCl 1, 525 75 000 ml @ 75 mls/hr IV . [id number] [facility] Rx#:[id number] Phytonadione 5 mg In 50 Sodium Chloride 0.9% 50 ml @ 100 mls/hr IVPB ONCE STA Rx#:[id number] Potassium Phosphate 10 200 mmol In Sodium Chloride 0 .9% 100 ml @ 50 mls/hr IV Q2H [facility] Rx#:[id number] Intake, IV Titration 50 Amount Phytonadione 10 mg In 50 Sodium Chloride 0.9% 50 ml @ 100 mls/hr IVPB ONCE STA Rx#:[id number] Tube Feeding 110 330 0 Blood Product 869 237 Ffp 24 Cp2d Unit 0 237 [id number] Ffp 24 Cpd Unit 313 [id number] Other 90 Output: Urine 465 2650 40 Other: Voiding Method Indwelling Catheter Indwelling Catheter # Bowel Movements 0 - Exam Physical examination: PHYSICAL EXAMINATION: Patient is resting comfortably in bed. VITAL SIGNS: Blood pressure is [112/62]. Heart rate is [84]. Respiration is [20] . Temperature is [98.2]. HEENT: Head is atraumatic, neck is supple, there were no carotid bruits. CHEST: Lungs are clear to auscultation and percussion. CARDIAC: S1, S2 normal rate and rhythm. There is no murmur. ABDOMEN: Soft and nontender. Bowel sounds are present. EXTREMITIES: There is no pedal edema. Peripheral pulses are present. Neurological examination: Patient is awake alert and oriented 1 only. Her speech is slow but fluent. Her memory and intellectual functions are impaired. The patient is not opening her eyes during examination in the ICU. She is not combative but seems to be very restless. She has no evidence of nuchal rigidity or meningismus on examination. Her remaining neurological examination is unchanged from yesterday. Patient does seem to be more awake and alert today. Her speech is at least more comprehensible today as compared to yesterday. She is still not following commands. We will continue close neurological follow-up of this patient in the ICU setting. - Labs CBC & Chem 7: 05/14/17 09:37 05/14/17 16:35 Labs: Abnormal Lab Results - Last 24 Hours (Table) 05/14/17 05/14/17 05/14/17 Range/Units 00:15 07:04 09:37 WBC 15.8 H (3.8-10.6) k/uL Neutrophils # 13.7 H (1.3-7.7) k/uL PT (9.0-12.0) sec INR (<1.2) BUN (7-17) mg/dL Glucose (74-99) mg/dL POC Glucose (mg/dL) 230 H 237 H (75-99) mg/dL Phosphorus (2.5-4.5) mg/dL ALT (9-52) U/L Total Protein (6.3-8.2) g/dL Albumin (3.5-5.0) g/dL 05/14/17 05/14/17 05/14/17 Range/Units 09:37 09:37 12:24 WBC (3.8-10.6) k/uL Neutrophils # (1.3-7.7) k/uL PT 13.7 H (9.0-12.0) sec INR 1.4 H (<1.2) BUN 18 H (7-17) mg/dL Glucose 216 H (74-99) mg/dL POC Glucose (mg/dL) 195 H (75-99) mg/dL Phosphorus 1.9 L (2.5-4.5) mg/dL ALT 70 H (9-52) U/L Total Protein 5.9 L (6.3-8.2) g/dL Albumin 3.1 L (3.5-5.0) g/dL 05/14/17 05/14/17 05/14/17 Range/Units 13:17 17:43 18:18 WBC (3.8-10.6) k/uL Neutrophils # (1.3-7.7) k/uL PT 12.3 H (9.0-12.0) sec INR 1.2 H (<1.2) BUN (7-17) mg/dL Glucose (74-99) mg/dL POC Glucose (mg/dL) 213 H 200 H (75-99) mg/dL Phosphorus (2.5-4.5) mg/dL ALT (9-52) U/L Total Protein (6.3-8.2) g/dL Albumin (3.5-5.0) g/dL Microbiology - Last 24 Hours (Table) 05/13/17 06:46 Blood Culture - Preliminary Blood No Growth after 24 hours Assessment and Plan (1) Acute encephalopathy Status: Acute Code(s): G93.40 - ENCEPHALOPATHY, UNSPECIFIED (2) Dementia Status: Acute Code(s): F03.90 - UNSPECIFIED DEMENTIA WITHOUT BEHAVIORAL DISTURBANCE (3) NSTEMI (non-ST elevated myocardial infarction) Status: Acute Code(s): I21.4 - NON-ST ELEVATION (NSTEMI) MYOCARDIAL INFARCTION (4) Near syncope Status: Acute Code(s): R55 - SYNCOPE AND COLLAPSE Plan: This patient is a 81-year-old female who was initially admitted to Hospital with symptoms of chest pain and altered mental status. Patient continued to show evidence of worsening mental status changes since her admission to the hospital. She was recently being diagnosed and worked up for underlying dementia. Patient was seen by cardiology and she was diagnosed as having an acute non-ST segment elevation myocardial infarction. She also has a severely impaired LV function with an ejection fraction of less than 20% on echocardiogram study. She also has chronic atrial fibrillation. She is unable to go for MRI she also has a pacemaker. She has remained quite confused. She underwent a repeat computed tomography scan of the brain today the results of which are noted above. CAT scan fails to reveal any evidence of acute stroke or hemorrhage. There is evidence of an old left insular infarct. Patient remains somewhat obtunded with no clear evidence of her underlying etiology for severe encephalopathy. We did discuss her findings in detail with the son yesterday in the ICU. We have explained that her dementia would not worsen significantly in a period of a few weeks. We have recommended today for the patient to be considered for lumbar puncture for further evaluation to rule out possibility of encephalitis and/or meningitis. The son was contacted today for consent to proceed with LP and this was given to us over the phone. The patient does remain afebrile. She is still not opening her eyes very much since reevaluation yesterday. She does have evidence of underlying moderate to severe encephalopathy based on her recent EEG. We will continue close neurological follow-up of this patient in the intensive care unit. As noted we would like to proceed with lumbar puncture to rule out any other possible etiologies for her acute mental status changes. Case was discussed today with Dr. Viera. He is in full agreement to proceed with LP for this patient. We did attempt a lumbar puncture this evening at the patient's bedside in the ICU. Due to her movement and agitation we were unable to successfully obtain spinal fluid today. We will consult anesthesia to attempt a lumbar puncture tomorrow morning. Spinal fluid orders were given to the ICU nurse this evening so that they may input this to the laboratory for tomorrow morning. We will consult anesthesia to attempt lumbar puncture tomorrow. If they are unsuccessful then we will try CT guided lumbar puncture via radiology. Overall the patient does show improvement in her mental status today as compared to yesterday. She remains afebrile. For completion sake we will try to get the spinal fluid for further analysis of other forms of encephalopathy. We did discuss today the reasoning for lumbar puncture with the patient's son who was at bedside. He has given consent. We will await for spinal fluid results once LP is completed. Her overall prognosis at this time remains guarded. Overall prognosis at this time remains very guarded. We will continue close neurological follow-up of this patient in the intensive care unit.
[2017-05-14] MEDS: ATORVASTATIN 20 MG TAB PO SCH (22:10)
[2017-05-14 22:12] LABS: Glucose,Whole Blood 161 mg/dL (75-99)
[2017-05-14 23:55] LABS: Glucose,Whole Blood 139 mg/dL (75-99)
[2017-05-15] MEDS: METOPROLOL TARTRATE 5 MG/5 ML VIAL IVP SCH ×4 (01:05→23:06)
[2017-05-15] MEDS: INSULIN LISPRO (humaLOG) 300 UNIT/3 ML VIAL SQ SCH ×5 (01:17→23:11)
[2017-05-15 05:39] LABS: Basophils # (A) 0.1 k/uL (0-0.2); Basophils % (A) 0 %; CH 31.3; CHCM 33.4; Eosinophils # (A) 0.1 k/uL (0-0.7); Eosinophils % (A) 0 %; HCT 39.7 % (34.0-46.0); HDW 2.26; HGB 12.8 gm/dL (11.4-16.0); Luc # (Auto) 0.21; Luc % (Auto) 1; Lymphocytes % (A) 5 %; MCH 30.3 pg (25.0-35.0); MCHC 32.3 g/dL (31.0-37.0); MCV 94.1 fL (80.0-100.0); Mean Platelet Volume 8.3; Monocytes # (A) 0.7 k/uL (0-1.0); Monocytes % (A) 4 %; Neutrophils # (A) 16.2 k/uL (1.3-7.7); Neutrophils % (A) 89 %; RBC 4.22 m/uL (3.80-5.40); RDW 13.5 % (11.5-15.5); WBC 18.2 k/uL (3.8-10.6); WBC (Perox) 18.68
[2017-05-15 05:49] LABS: INR 1.2 (<1.2); Partial Thromboplastin Time 24.7 sec (22.0-30.0); Prothrombin Time 11.9 sec (9.0-12.0)
[2017-05-15 05:52] LABS: ALT 63 U/L (9-52); AST 26 U/L (14-36); Alkaline Phosphatase 53 U/L (38-126); Anion Gap 7 mmol/L; Blood Urea Nitrogen 16 mg/dL (7-17); Calcium 8.7 mg/dL (8.4-10.2); Carbon Dioxide 29 mmol/L (22-30); Chloride 105 mmol/L (98-107); Glucose 205 mg/dL (74-99); Magnesium 1.7 mg/dL (1.6-2.3); Non-African American GFR(MDRD) >60 (>60 ml/min/1.73 sqM); Phosphorous 2.8 mg/dL (2.5-4.5); Potassium 3.6 mmol/L (3.5-5.1); Sodium 141 mmol/L (137-145); Total Protein 5.7 g/dL (6.3-8.2)
[2017-05-15 07:08] LABS: Glucose,Whole Blood 176 mg/dL (75-99)
[2017-05-15] MEDS: DEXTROSE 5%-0.45% NACL 1,000 ML IV SCH ×2 (07:10→13:00)
[2017-05-15] MEDS: MAGNESIUM SULFATE-D5W PMX 1 GM in DEXTROSE/WATER 1 100ML.BAG IVPB SCH ×2 (07:10→09:22)
[2017-05-15] MEDS: POTASSIUM CHLORIDE 10 MEQ in WATER FOR INJECTION 1 100ML.BAG IVPB SCH ×4 (07:10→18:05)
--- NOTE | 2017-05-15 07:33 | XR ---
EXAMINATION TYPE: XR chest 1V DATE OF EXAM: 05/15/2017 CLINICAL HISTORY: Difficulty breathing progress study. TECHNIQUE: Single AP portable semiupright view of the chest is obtained. COMPARISON: Chest x-ray from one day earlier and older studies. FINDINGS: There is interval removal of Dobbhoff feeding catheter. Right internal jugular central joaquín ous catheter is stable in appearance. Surgical clips epigastric region are redemonstrated. There is p ersistent mild cardiomegaly with single lead pacemaker and ectatic thoracic aorta. There is patchy bi basilar atelectasis. Osseous structures are demineralized. IMPRESSION: Cardiomegaly with new patchy bibasilar atelectasis.
--- NOTE | 2017-05-15 08:54 | P.PN ---
Subjective An 81-year-old female patient with known history of dementia who was admitted to the hospital because of chest pain. Her son who is the primary caregiver noted that the patient was complaining of chest discomfort. The patient was brought into the emergency department because of chest pain. A cardiology evaluation was done and the patient was diagnosed having a acute non-ST segment elevation myocardial infarction. She has a severely impaired LV function with an ejection fraction of less than 20% based on echocardiogram study. She also has a chronic atrial fibrillation. During the same hospitalization the patient was found to be quite confused and she continued to have altered mental status and progressively became completely unresponsive. The patient was brought in to the intensive care yesterday as her cardiac rhythm went tachycardic and the patient was brought in for a potential problem of an SVT. I do not see was given during a emergency situation and the patient did not respond an underlying rhythm was reviewed and seems that the patient was in a flutter rhythm. I think that the patient was in a combination of tachycardia in the setting of atrial fibrillation/flutter. In the ICU, the patient was given Cardizem drip and beta blockers. The heart rate slowed down and currently she is back to normal sinus. She remained hemodynamically stable throughout this event. Neurologically however the patient remains unresponsive. Neurology is following the patient had psychiatry is following the patient. At one point she was thought to be catatonic and she was given a trial of Ativan which again failed to improve her condition. CAT scan of the brain has been done on admission and a repeat CAT scan of the brain was done this afternoon and it showed cerebral atrophy without any acute intracranial abnormalities. No neck stiffness. No fever. 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 The EEG also showed severe widespread diffuse disturbance of cerebral function without any evidence of focal lateralized or epileptiform abnormalities. No seizure activity has been noted. Also, the patient was found to be profoundly hyponatremic. The sodium level was around 161 and she was started on D5 water initially at 100 mL which I increased up to 150 and earlier this morning her sodium level came down to 150. She also had a component of acute kidney injury secondary to intravascular volume depletion and this is also improving. A triple lumen catheter inserted knowing that the patient had a poor IV access. A Dobbhoff catheter was also inserted for enteral feeding. The patient was seen again today 05/14/2017 in follow-up in the intensive care unit. She continues to wax and wane in regards to her mental status. She does seem a little more alert today as compared to yesterday. She continues with a loose nonproductive cough. Chest x-ray reveals some mild central venous congestion without suspicious focal infiltrates. Her heart rate is better controlled. The diltiazem drip was discontinued. She remains on amiodarone at 0.5 mg per hour. Currently in sinus rhythm. She's been hemodynamically stable. Not on any pressors. She is afebrile. She is being followed by neurology who was planning a lumbar puncture today. Her INR was corrected to 1.4 via vitamin K and fresh frozen plasma. On 05/15/2017 the patient is being seen in follow-up in intensive care unit. I would say she is gradually becoming more awake. On today's evaluation she was having some limited conversation with the nurses. I felt that she was still lethargic and confused. Obviously her mentation is waxing and waning however she seems to be more awake and she opens her eyes spontaneously and mumbles and says few words. She pulled out her Dobbhoff catheter however she did not aspirate. The catheter will be reinserted for feeding purposes of medication. The patient was given fresh frozen plasma and vitamin K and her coagulopathy was reversed. The lumbar puncture was attempted by neurology yesterday evening without success as the patient had increased movement. Anesthesia will be consulted for the same. Her white cell count is at 18.2. Chest x-ray from today shows cardiomegaly with a new patchy bibasilar pulmonary infiltrates. The patient remains in sinus rhythm with occasional. Rate is controlled for now. Hemodynamically stable. Producing adequate amount of urine output. No fever or chills. Objective - Vital Signs Vital signs: Vital Signs Temp 98.2 F 05/14/17 16:00 Pulse 93 05/15/17 07:00 Resp 38 H 05/15/17 07:00 BP 131/79 05/15/17 07:00 Pulse Ox 93 L 05/15/17 07:00 Intake & Output 05/14/17 05/15/17 05/15/17 18:59 06:59 18:59 Intake Total 1807 850 75 Output Total 2650 370 15 Balance -843 480 60 Weight 56.6 kg Intake: IV 1150 800 75 Dextrose 5% in Water 1, 375 000 ml @ 75 mls/hr IV . [id number] ON LICENSE OF [facility] Rx#:[id number] Dextrose 5%-0.45% NaCl 1, 525 375 75 000 ml @ 75 mls/hr IV . [id number] ON LICENSE OF [facility] Rx#:[id number] Phytonadione 5 mg In 50 375 Sodium Chloride 0.9% 50 ml @ 100 mls/hr IVPB ONCE [facility] Rx#:[id number] Potassium Phosphate 10 200 50 mmol In Sodium Chloride 0 .9% 100 ml @ 50 mls/hr IV Q2H ON LICENSE OF [facility] Rx#:[id number] Intake, IV Titration 50 Amount Potassium Chloride 20 meq 50 In Water For Injection 1 100ml.bag @ 50 mls/hr IVPB ONCE [facility] Rx#: [id number] Tube Feeding 330 0 Blood Product 237 Ffp 24 Cp2d Unit 237 [id number] Other 90 Output: Urine 2650 370 15 Other: Voiding Method Indwelling Catheter Indwelling Catheter - Exam The patient will open her eyes to loud verbal command. mainly nonverbal. She' ll occasionally opens up her eyes spontaneously. She mumbles a few words. At times she is able to hold on few sentences and K small conversations. She'll occasionally withdraws to painful stimuli. Neurologically, there is no facial asymmetry, pupils around 3-4 mm in size and sluggishly reactive to light. No nystagmus or a preferential gaze. She has a weak gag. The patient is moving all 4 extremities. No Babinski. No clonus. DTRs are +1 and symmetrical. Sensory function cannot be accurately assessed. Motor function cannot be accurately assessed. Speech cannot be accurately assessed. The patient is moaning and groaning.Head exam was generally normal. There was no scleral icterus or corneal arcus. Mucous membranes were moist. Neck is supple and there is no JVDs no goiter or neck masses. Lungs sounds are diminished otherwise clear. Vessels are equal and symmetrical bilaterally. Heart sounds are irregular at times however at the time of my evaluation to sinus. Positive S1-S2. No cervical murmurs appreciated.Abdominal exam revealed normal bowel sounds. The abdomen was soft, non-tender, and without masses, organomegaly, or appreciable enlargement of the abdominal aorta.Examination of the extremities revealed easily palpable radial, femoral and pedal pulses. There was no cyanosis , clubbing or edema. - Labs CBC & Chem 7: 05/15/17 05:05 05/15/17 05:05 Labs: Abnormal Lab Results - Last 24 Hours (Table) 05/14/17 05/14/17 05/14/17 Range/Units 09:37 09:37 09:37 WBC 15.8 H (3.8-10.6) k/uL Neutrophils # 13.7 H (1.3-7.7) k/uL PT 13.7 H (9.0-12.0) sec INR 1.4 H (<1.2) BUN 18 H (7-17) mg/dL Glucose 216 H (74-99) mg/dL POC Glucose (mg/dL) (75-99) mg/dL Phosphorus 1.9 L (2.5-4.5) mg/dL ALT 70 H (9-52) U/L Total Protein 5.9 L (6.3-8.2) g/dL Albumin 3.1 L (3.5-5.0) g/dL 05/14/17 05/14/17 05/14/17 Range/Units 12:24 13:17 17:43 WBC (3.8-10.6) k/uL Neutrophils # (1.3-7.7) k/uL PT 12.3 H (9.0-12.0) sec INR 1.2 H (<1.2) BUN (7-17) mg/dL Glucose (74-99) mg/dL POC Glucose (mg/dL) 195 H 213 H (75-99) mg/dL Phosphorus (2.5-4.5) mg/dL ALT (9-52) U/L Total Protein (6.3-8.2) g/dL Albumin (3.5-5.0) g/dL 05/14/17 05/14/17 05/14/17 Range/Units 18:18 22:09 23:53 WBC (3.8-10.6) k/uL Neutrophils # (1.3-7.7) k/uL PT (9.0-12.0) sec INR (<1.2) BUN (7-17) mg/dL Glucose (74-99) mg/dL POC Glucose (mg/dL) 200 H 161 H 139 H (75-99) mg/dL Phosphorus (2.5-4.5) mg/dL ALT (9-52) U/L Total Protein (6.3-8.2) g/dL Albumin (3.5-5.0) g/dL 05/15/17 05/15/17 05/15/17 Range/Units 05:05 05:05 05:05 WBC 18.2 H (3.8-10.6) k/uL Neutrophils # 16.2 H (1.3-7.7) k/uL PT (9.0-12.0) sec INR 1.2 H (<1.2) BUN (7-17) mg/dL Glucose 205 H (74-99) mg/dL POC Glucose (mg/dL) (75-99) mg/dL Phosphorus (2.5-4.5) mg/dL ALT 63 H (9-52) U/L Total Protein 5.7 L (6.3-8.2) g/dL Albumin 3.0 L (3.5-5.0) g/dL 05/15/17 Range/Units 07:05 WBC (3.8-10.6) k/uL Neutrophils # (1.3-7.7) k/uL PT (9.0-12.0) sec INR (<1.2) BUN (7-17) mg/dL Glucose (74-99) mg/dL POC Glucose (mg/dL) 176 H (75-99) mg/dL Phosphorus (2.5-4.5) mg/dL ALT (9-52) U/L Total Protein (6.3-8.2) g/dL Albumin (3.5-5.0) g/dL Microbiology - Last 24 Hours (Table) 05/13/17 06:46 Blood Culture - Preliminary Blood No Growth after 24 hours Assessment and Plan Plan: Assessment 1 Unresponsiveness, altered mentation with significant diminished level of consciousness. Neurologically there has been some improvement in the mentation is patient seems to be a bit more awake compared to yesterday. Neurologist on the case. Lumbar puncture was attempted and it was difficult as the patient was fund controller positive. We'll consult anesthesia for lumbar puncture. Meanwhile , there is some improvement in the level of consciousness as the patient seems to be slightly more awake. 2 atrial fibrillation with rapid ventricular response, treated in the current rhythm is sinus 3 CHF with global hypokinesis and ejection fraction of 20% 4 non-Q-wave myocardial infarction 5 history of nonsustained ventricular tachycardia 6 hypernatremia currently on D5 water. The patient is currently on D5 half- normal at the rate of 75 mL an hour. 7 dementia 8 diabetes mellitus 9 hyperlipidemia 7 hypertension 8 limited bibasilar pulmonary infiltrate, rule out aspiration Plan Results anesthesia for lumbar puncture. Continue D5 half-normal saline today to 75 mL an hour. The insert Dobbhoff catheter. Monitor mentation. Neurologist on the case. Aspiration precautions. No need for antibiotics for now. No clear dictation for an aspiration pneumonia. We'll follow.
[2017-05-15] MEDS ORDERED: ASPIRIN 81 MG NG-TUBE SCH (09:00)
[2017-05-15] MEDS: ASPIRIN 300 MG SUPP RECTAL SCH (10:38)
--- NOTE | 2017-05-15 11:07 | P.PCN ---
Date of Procedure: 05/15/17 Preoperative Diagnosis: Postoperative Diagnosis: Procedure(s) Performed: Procedure=1-lumbar puncture . Preoperative diagnoses= altered mental status Postoperative diagnosis= altered mental status Anesthesia= local lidocaine infiltration 1% 2 mL for skin and subcu infiltration. Condition= critical. Complications=none. Indication for the procedure= patient with a history of altered mental status , and she was referred to have a lumbar puncture for diagnostic study , the patient,s power of spa receptionist and he agreed with the preceding, under consent signed Description of the procedure= patient in the sitting position and monitors applied, the back prepped with chlorhexidine -3, sterile technique, local infiltration of the skin and subcu interstitial with lidocaine 1% 2 mL, then 22- gauge quickie Needle advanced slowly at L4 5 interlaminar space, the cerebrospinal fluid was clear, and no heme no paresthesia, a total of 10 mL of clear cerebrospinal fluid collected in 4 different tubes, the needle removed , Band-Aid applied , patient tolerated the procedure well without any complications, and further management as per her neurologist Implants: Indications for Procedure: Operative Findings: Description of Procedure:
[2017-05-15 12:03] LABS: Appearance,CSF Clear
[2017-05-15 12:14] LABS: Glucose,CSF 108 mg/dL (40-70)
[2017-05-15 12:27] LABS: Glucose,Whole Blood 179 mg/dL (75-99)
[2017-05-15] MEDS: ENOXAPARIN 40 MG/0.4 ML SYRINGE SQ SCH (13:00)
--- NOTE | 2017-05-15 13:35 | P.PN ---
Subjective Patient mentation is improving today. When I saw her she was still obtunded but according to nursing staff she was more awake earlier and mumbled a few words. Objective - Vital Signs Vital signs: Vital Signs Temp 97.4 F L 05/15/17 12:00 Pulse 74 05/15/17 13:00 Resp 18 05/15/17 13:00 BP 85/55 05/15/17 13:00 Pulse Ox 100 05/15/17 13:00 Intake & Output 05/14/17 05/15/17 05/15/17 18:59 06:59 18:59 Intake Total 1807 850 525 Output Total 2650 370 285 Balance -843 480 240 Weight 56.6 kg 56.6 kg Intake: IV 1150 800 525 Dextrose 5% in Water 1, 375 000 ml @ 75 mls/hr IV . [id number] [facility] Rx#:[id number] Dextrose 5%-0.45% NaCl 1, 525 375 525 000 ml @ 75 mls/hr IV . [id number] [facility] Rx#:[id number] Phytonadione 5 mg In 50 375 Sodium Chloride 0.9% 50 ml @ 100 mls/hr IVPB ONCE [facility] Rx#:[id number] Potassium Phosphate 10 200 50 mmol In Sodium Chloride 0 .9% 100 ml @ 50 mls/hr IV Q2H [facility] Rx#:[id number] Intake, IV Titration 50 Amount Potassium Chloride 20 meq 50 In Water For Injection 1 100ml.bag @ 50 mls/hr IVPB ONCE [facility] Rx#: [id number] Tube Feeding 330 0 Blood Product 237 Ffp 24 Cp2d Unit 237 [id number] Other 90 Output: Urine 2650 370 285 Other: Voiding Method Indwelling Catheter Indwelling Catheter Indwelling Catheter - Exam General: The patient is lethargic and hardly arousable Neck: The neck is supple, there is no JVD. Cardiovascular: Normal S1-S2, no S3-S4, no murmurs. Respiratory: Lungs with diffuse rhonchi and rales all over the chest Gastrointestinal: Abdomen is soft, nontender Musculoskeletal: There is no pedal edema. Skin: Skin is warm and dry - Labs CBC & Chem 7: 05/15/17 05:05 05/15/17 05:05 Labs: Abnormal Lab Results - Last 24 Hours (Table) 05/14/17 05/14/17 05/14/17 Range/Units 17:43 18:18 22:09 WBC (3.8-10.6) k/uL Neutrophils # (1.3-7.7) k/uL PT 12.3 H (9.0-12.0) sec INR 1.2 H (<1.2) Glucose (74-99) mg/dL POC Glucose (mg/dL) 200 H 161 H (75-99) mg/dL ALT (9-52) U/L Total Protein (6.3-8.2) g/dL Albumin (3.5-5.0) g/dL CSF Glucose (40-70) mg/dL 05/14/17 05/15/17 05/15/17 Range/Units 23:53 05:05 05:05 WBC 18.2 H (3.8-10.6) k/uL Neutrophils # 16.2 H (1.3-7.7) k/uL PT (9.0-12.0) sec INR (<1.2) Glucose 205 H (74-99) mg/dL POC Glucose (mg/dL) 139 H (75-99) mg/dL ALT 63 H (9-52) U/L Total Protein 5.7 L (6.3-8.2) g/dL Albumin 3.0 L (3.5-5.0) g/dL CSF Glucose (40-70) mg/dL 05/15/17 05/15/17 05/15/17 Range/Units 05:05 07:05 10:55 WBC (3.8-10.6) k/uL Neutrophils # (1.3-7.7) k/uL PT (9.0-12.0) sec INR 1.2 H (<1.2) Glucose (74-99) mg/dL POC Glucose (mg/dL) 176 H (75-99) mg/dL ALT (9-52) U/L Total Protein (6.3-8.2) g/dL Albumin (3.5-5.0) g/dL CSF Glucose 108 H (40-70) mg/dL 05/15/17 Range/Units 12:25 WBC (3.8-10.6) k/uL Neutrophils # (1.3-7.7) k/uL PT (9.0-12.0) sec INR (<1.2) Glucose (74-99) mg/dL POC Glucose (mg/dL) 179 H (75-99) mg/dL ALT (9-52) U/L Total Protein (6.3-8.2) g/dL Albumin (3.5-5.0) g/dL CSF Glucose (40-70) mg/dL Microbiology - Last 24 Hours (Table) 05/13/17 06:46 Blood Culture - Preliminary Blood No Growth after 48 hours Assessment and Plan Plan: 1. Acute toxo metabolic encephalopathy 2. Hypovolemic hypernatremia, improving 3. Severe dehydration 4. Starvation ketosis with elevated lactic acid, resolved 5. Acute Non-Q-wave myocardial infarction present on admission: She has been evaluated by cardiology the recommending medical management. 6. supraventricular tachycardia seen and evaluated by cardiology now on IV amiodarone drip. Heart rate well controlled. 7. history of Atrial fibrillation with rapid ventricular response: now receiving IV metoprolol Patient not a good candidate for anticoagulation because of her risks of multiple falls 8. Hyperlipidemia continue statin 9. Acute on chronic systolic CHF: last Echo shows an EF of less than 20%. 10. Diabetes mellitus type 2: Hemoglobin A1c of 6.9. add Lantus 10 units once a day and continue sliding scale insulin 11. Dementia/underlying cognitive impairment 12. Essential hypertension 13. Generalized anxiety disorder Today, I reviewed her medication list and lab work results. IV fluid with D5 half-normal saline at 75 mL per hour. Continue NG tube feeding. Computed tomography scan of the brain showed no acute findings. Status post LP awaiting lab work results.. Continue ICU care. No family members at bedside to be updated.
--- NOTE | 2017-05-15 15:48 | P.PN ---
Subjective This patient is a 81-year-old female admitted with altered mental status and confusion. She is noted today to have ongoing symptoms of underlying cognitive impairment and dementia. She is able to answer only a few questions appropriately. We will continue close neurological follow-up with this patient during this admission. The patient is laying in bed and is quite confused this evening. She is not sure why she was admitted to the hospital. She was noted to continue due to mistreated evidence of confusion early this morning. As noted she did have an acute non-Q wave myocardial infarction on admission. She is being evaluated and treated by cardiology for this condition. She does have evidence of atrial fibrillation but is not a candidate for long-term anticoagulation due to her multiple risk of fall. Overall the patient seems to be doing about the same today. She does have evidence of underlying dementia as well. We will continue current neurological evaluation and monitoring of this patient. Her overall prognosis at this time remains very guarded. Her speech is fluent with no evidence of any aphasia. We will continue close neurological workup for this patient with altered mental status. She does have history of underlying dementia. According to her she was diagnosed only recently after she had failed a memory test by her primary care physician. We have explained to the that dementia does not develop over a matter of weeks or months but usually takes years. Currently she was transferred to the intensive care unit this evening as she had developed evidence of SVT. Cardiology has started her on a Cardizem drip as well as amiodarone drip. She was transferred to the ICU this evening. She remains obtunded and lethargic. She does not open her eyes. Her last computed tomography scan of the brain was completed on 05/07/2017 and failed to reveal any acute changes. We will obtain a follow-up computed tomography scan of the brain today. She is unable to have an MRI of the brain that she has a pacemaker. Patient underwent computed tomography scan of the brain today. CAT scan reveals evidence of cerebral atrophy. There was no acute intracranial abnormality. 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 The patient remains obtunded in the ICU. She is still not opening her eyes according to the ICU nursing staff. She remains lethargic but moving all extremities. We have discussed in detail with the son yesterday that sudden decline in her potential for dementia would not explain her current findings. We have recommended to consider undergoing lumbar puncture for this patient to rule out any possibility of encephalitis and /or meningitis. She has remained afebrile in the ICU setting. We have obtained consent for lumbar puncture today from the son. We will arrange for LP to be done today for further evaluation. We did attempt to do a lumbar puncture at her bedside in the ICU today. Due to her agitation and movement the LP was unsuccessful. We will consult anesthesia for tomorrow morning to attempt a lumbar puncture for further evaluation. Spinal fluid analysis orders were given to the ICU nurses evening. Overall the patient does show improvement in her level of consciousness as compared to yesterday. She is more talkative today. We will complete R evaluation with the spinal fluid analysis hopefully to be completed tomorrow. Anesthesia was consulted today and was able to complete a lumbar puncture this morning. Preliminary results indicate no evidence of any meningitis based on Gram stain results. We will await other spinal fluid results to return from the laboratory. According to the nursing staff she is showing slow improvement in her overall cognitive function and is able to answer a few questions. At times she does give appropriate answers to questions. She does seem to have a diffuse metabolic encephalopathy at this time. As noted her spinal fluid results have been collected and we're waiting final results to return from the laboratory. Her overall prognosis at this time remains guarded. We will continue close neurological follow-up with this patient in the intensive care unit. Objective - Vital Signs Vital signs: Vital Signs Temp 97.4 F L 05/15/17 12:00 Pulse 74 05/15/17 13:00 Resp 18 05/15/17 13:00 BP 85/55 05/15/17 13:00 Pulse Ox 100 05/15/17 13:00 Intake & Output 05/14/17 05/15/17 05/15/17 18:59 06:59 18:59 Intake Total 1807 850 525 Output Total 2650 370 285 Balance -843 480 240 Weight 56.6 kg 56.6 kg Intake: IV 1150 800 525 Dextrose 5% in Water 1, 375 000 ml @ 75 mls/hr IV . [id number] [facility] Rx#:[id number] Dextrose 5%-0.45% NaCl 1, 525 375 525 000 ml @ 75 mls/hr IV . [id number] [facility] Rx#:[id number] Phytonadione 5 mg In 50 375 Sodium Chloride 0.9% 50 ml @ 100 mls/hr IVPB ONCE STA Rx#:[id number] Potassium Phosphate 10 200 50 mmol In Sodium Chloride 0 .9% 100 ml @ 50 mls/hr IV Q2H [facility] Rx#:[id number] Intake, IV Titration 50 Amount Potassium Chloride 20 meq 50 In Water For Injection 1 100ml.bag @ 50 mls/hr IVPB ONCE ONE Rx#: [id number] Tube Feeding 330 0 Blood Product 237 Ffp 24 Cp2d Unit 237 [id number] Other 90 Output: Urine 2650 370 285 Other: Voiding Method Indwelling Catheter Indwelling Catheter Indwelling Catheter - Exam Physical examination: PHYSICAL EXAMINATION: Patient is resting comfortably in bed. VITAL SIGNS: Blood pressure is [98/59]. Heart rate is [84]. Respiration is [17] . Temperature is [97.4]. HEENT: Head is atraumatic, neck is supple, there were no carotid bruits. CHEST: Lungs are clear to auscultation and percussion. CARDIAC: S1, S2 normal rate and rhythm. There is no murmur. ABDOMEN: Soft and nontender. Bowel sounds are present. EXTREMITIES: There is no pedal edema. Peripheral pulses are present. Neurological examination: Patient is awake alert and oriented 1 only. Her speech is slow but fluent. Her memory and intellectual functions are impaired. The patient is not opening her eyes during examination in the ICU. She is not combative but seems to be very restless. She has no evidence of nuchal rigidity or meningismus on examination. Her remaining neurological examination is unchanged from yesterday. Patient does seem to be more awake and alert today. Her speech is at least more comprehensible today as compared to yesterday. She continues to show improvement daily in the ICU. She is still not following commands. We will continue close neurological follow-up of this patient in the ICU setting. - Labs CBC & Chem 7: 05/15/17 05:05 05/15/17 14:20 Labs: Abnormal Lab Results - Last 24 Hours (Table) 05/14/17 05/14/17 05/14/17 Range/Units 17:43 18:18 22:09 WBC (3.8-10.6) k/uL Neutrophils # (1.3-7.7) k/uL PT 12.3 H (9.0-12.0) sec INR 1.2 H (<1.2) Glucose (74-99) mg/dL POC Glucose (mg/dL) 200 H 161 H (75-99) mg/dL ALT (9-52) U/L Total Protein (6.3-8.2) g/dL Albumin (3.5-5.0) g/dL CSF Glucose (40-70) mg/dL 05/14/17 05/15/17 05/15/17 Range/Units 23:53 05:05 05:05 WBC 18.2 H (3.8-10.6) k/uL Neutrophils # 16.2 H (1.3-7.7) k/uL PT (9.0-12.0) sec INR (<1.2) Glucose 205 H (74-99) mg/dL POC Glucose (mg/dL) 139 H (75-99) mg/dL ALT 63 H (9-52) U/L Total Protein 5.7 L (6.3-8.2) g/dL Albumin 3.0 L (3.5-5.0) g/dL CSF Glucose (40-70) mg/dL 05/15/17 05/15/17 05/15/17 Range/Units 05:05 07:05 10:55 WBC (3.8-10.6) k/uL Neutrophils # (1.3-7.7) k/uL PT (9.0-12.0) sec INR 1.2 H (<1.2) Glucose (74-99) mg/dL POC Glucose (mg/dL) 176 H (75-99) mg/dL ALT (9-52) U/L Total Protein (6.3-8.2) g/dL Albumin (3.5-5.0) g/dL CSF Glucose 108 H (40-70) mg/dL 05/15/17 Range/Units 12:25 WBC (3.8-10.6) k/uL Neutrophils # (1.3-7.7) k/uL PT (9.0-12.0) sec INR (<1.2) Glucose (74-99) mg/dL POC Glucose (mg/dL) 179 H (75-99) mg/dL ALT (9-52) U/L Total Protein (6.3-8.2) g/dL Albumin (3.5-5.0) g/dL CSF Glucose (40-70) mg/dL Microbiology - Last 24 Hours (Table) 05/13/17 06:46 Blood Culture - Preliminary Blood No Growth after 48 hours Assessment and Plan (1) Acute encephalopathy Status: Acute Code(s): G93.40 - ENCEPHALOPATHY, UNSPECIFIED (2) Dementia Status: Acute Code(s): F03.90 - UNSPECIFIED DEMENTIA WITHOUT BEHAVIORAL DISTURBANCE (3) NSTEMI (non-ST elevated myocardial infarction) Status: Acute Code(s): I21.4 - NON-ST ELEVATION (NSTEMI) MYOCARDIAL INFARCTION (4) Near syncope Status: Acute Code(s): R55 - SYNCOPE AND COLLAPSE Plan: This patient is a 81-year-old female who was initially admitted to Hospital with symptoms of chest pain and altered mental status. Patient continued to show evidence of worsening mental status changes since her admission to the hospital. She was recently being diagnosed and worked up for underlying dementia. Patient was seen by cardiology and she was diagnosed as having an acute non-ST segment elevation myocardial infarction. She also has a severely impaired LV function with an ejection fraction of less than 20% on echocardiogram study. She also has chronic atrial fibrillation. She is unable to go for MRI she also has a pacemaker. She has remained quite confused. She underwent a repeat computed tomography scan of the brain today the results of which are noted above. CAT scan fails to reveal any evidence of acute stroke or hemorrhage. There is evidence of an old left insular infarct. Patient remains somewhat obtunded with no clear evidence of her underlying etiology for severe encephalopathy. We did discuss her findings in detail with the son yesterday in the ICU. We have explained that her dementia would not worsen significantly in a period of a few weeks. We have recommended today for the patient to be considered for lumbar puncture for further evaluation to rule out possibility of encephalitis and/or meningitis. The son was contacted today for consent to proceed with LP and this was given to us over the phone. The patient does remain afebrile. She is still not opening her eyes very much since reevaluation yesterday. She does have evidence of underlying moderate to severe encephalopathy based on her recent EEG. We will continue close neurological follow-up of this patient in the intensive care unit. As noted we would like to proceed with lumbar puncture to rule out any other possible etiologies for her acute mental status changes. Case was discussed today with Dr. Viera. He is in full agreement to proceed with LP for this patient. We did attempt a lumbar puncture this evening at the patient's bedside in the ICU. Due to her movement and agitation we were unable to successfully obtain spinal fluid today. We will consult anesthesia to attempt a lumbar puncture tomorrow morning. Spinal fluid orders were given to the ICU nurse this evening so that they may input this to the laboratory for tomorrow morning. We will consult anesthesia to attempt lumbar puncture tomorrow. If they are unsuccessful then we will try CT guided lumbar puncture via radiology. Overall the patient does show improvement in her mental status today as compared to yesterday. She remains afebrile. For completion sake we will try to get the spinal fluid for further analysis of other forms of encephalopathy. We did discuss today the reasoning for lumbar puncture with the patient's son who was at bedside. He has given consent. We will await for spinal fluid results once LP is completed. Patient was able to have a lumbar puncture performed today by anesthesia. Pulmonary results of the spinal fluid indicate no evidence for meningitis based on the CSF results. An array of other tests are still pending and we will need to await those final reports. Patient does show slight improvement in her overall mental status today. She is more engaging and is trying to say sentences in a concrete manner. She remains afebrile today. She continues to demonstrate evidence of a diffuse encephalopathy which is slowly improving. Her overall prognosis at this time remains guarded. Overall prognosis at this time remains very guarded. We will continue close neurological follow-up of this patient in the intensive care unit.
[2017-05-15 18:12] LABS: Glucose,Whole Blood 157 mg/dL (75-99)
[2017-05-15] MEDS: ATORVASTATIN 20 MG TAB PO SCH (19:57)
[2017-05-15 20:02] LABS: Glucose,Whole Blood 125 mg/dL (75-99)
[2017-05-15] MEDS: INSULIN GLARGINE 100 UNIT/ML 10 ML VIAL SQ SCH (20:02)
[2017-05-15] MEDS: LORazepam 2 MG/ML SYRINGE IV PRN (20:41)
[2017-05-15 23:13] LABS: Glucose,Whole Blood 112 mg/dL (75-99)
[2017-05-16] MEDS: DEXTROSE 5%-0.45% NACL 1,000 ML IV SCH ×2 (03:57→13:23)
[2017-05-16 04:24] LABS: Basophils % (A) 0 %; CH 30.1; CHCM 32.4; Eosinophils # (A) 0.2 k/uL (0-0.7); Eosinophils % (A) 1 %; HCT 38.8 % (34.0-46.0); HDW 2.25; HGB 12.8 gm/dL (11.4-16.0); Luc # (Auto) 0.32; Luc % (Auto) 2; Lymphocytes # (A) 1.4 k/uL (1.0-4.8); Lymphocytes % (A) 9 %; MCH 30.7 pg (25.0-35.0); MCHC 32.9 g/dL (31.0-37.0); MCV 93.3 fL (80.0-100.0); Mean Platelet Volume 8.2; Monocytes # (A) 0.7 k/uL (0-1.0); Monocytes % (A) 4 %; Neutrophils # (A) 14.1 k/uL (1.3-7.7); Neutrophils % (A) 84 %; RBC 4.15 m/uL (3.80-5.40); RDW 12.9 % (11.5-15.5); WBC 16.7 k/uL (3.8-10.6); WBC (Perox) 17.46
[2017-05-16 04:35] LABS: ALT 58 U/L (9-52); AST 23 U/L (14-36); Alkaline Phosphatase 56 U/L (38-126); Anion Gap 6 mmol/L; Blood Urea Nitrogen 12 mg/dL (7-17); Calcium 8.7 mg/dL (8.4-10.2); Carbon Dioxide 26 mmol/L (22-30); Chloride 107 mmol/L (98-107); Glucose 134 mg/dL (74-99); Magnesium 2.1 mg/dL (1.6-2.3); Non-African American GFR(MDRD) >60 (>60 ml/min/1.73 sqM); Potassium 3.9 mmol/L (3.5-5.1); Sodium 139 mmol/L (137-145); Total Bilirubin 0.9 mg/dL (0.2-1.3); Total Protein 5.5 g/dL (6.3-8.2)
[2017-05-16] MEDS ORDERED: Potassium Replacement Protocol 1 EACH MISC MISCELLANE PRN (05:05)
[2017-05-16] MEDS: POTASSIUM CHLORIDE 10 MEQ in WATER FOR INJECTION 1 100ML.BAG IVPB SCH ×2 (05:55→06:54)
[2017-05-16] MEDS: INSULIN LISPRO (humaLOG) 300 UNIT/3 ML VIAL SQ SCH ×3 (05:57→18:18)
--- NOTE | 2017-05-16 07:06 | XR ---
EXAMINATION TYPE: XR chest 1V DATE OF EXAM: 05/16/2017 CLINICAL HISTORY: Difficulty breathing progress study. TECHNIQUE: Single AP portable upright view of the chest is obtained. COMPARISON: Chest x-ray from one day earlier and older studies. FINDINGS: Right internal jugular central venous catheter is stable in appearance. Surgical clips epi gastric region are redemonstrated. There is persistent cardiomegaly with single lead pacemaker and ec tatic and atherosclerotic thoracic aorta. There is patchy bibasilar atelectasis. There is new central vascular congestion. Osseous structures are demineralized. Calcified nodule or granuloma right midlu ng is redemonstrated. IMPRESSION: Cardiomegaly with new central vascular congestion raises concern for developing CHF exace rbation, clinical correlation advised.
[2017-05-16] MEDS: METOPROLOL TARTRATE 5 MG/5 ML VIAL IVP SCH ×2 (08:27→15:40)
[2017-05-16] MEDS: ASPIRIN 300 MG SUPP RECTAL SCH (08:27)
[2017-05-16] MEDS: ENOXAPARIN 40 MG/0.4 ML SYRINGE SQ SCH (08:28)
--- NOTE | 2017-05-16 10:38 | P.PN ---
Subjective An 81-year-old female patient with known history of dementia who was admitted to the hospital because of chest pain. Her son who is the primary caregiver noted that the patient was complaining of chest discomfort. The patient was brought into the emergency department because of chest pain. A cardiology evaluation was done and the patient was diagnosed having a acute non-ST segment elevation myocardial infarction. She has a severely impaired LV function with an ejection fraction of less than 20% based on echocardiogram study. She also has a chronic atrial fibrillation. During the same hospitalization the patient was found to be quite confused and she continued to have altered mental status and progressively became completely unresponsive. The patient was brought in to the intensive care yesterday as her cardiac rhythm went tachycardic and the patient was brought in for a potential problem of an SVT. I do not see was given during a emergency situation and the patient did not respond an underlying rhythm was reviewed and seems that the patient was in a flutter rhythm. I think that the patient was in a combination of tachycardia in the setting of atrial fibrillation/flutter. In the ICU, the patient was given Cardizem drip and beta blockers. The heart rate slowed down and currently she is back to normal sinus. She remained hemodynamically stable throughout this event. Neurologically however the patient remains unresponsive. Neurology is following the patient had psychiatry is following the patient. At one point she was thought to be catatonic and she was given a trial of Ativan which again failed to improve her condition. CAT scan of the brain has been done on admission and a repeat CAT scan of the brain was done this afternoon and it showed cerebral atrophy without any acute intracranial abnormalities. No neck stiffness. No fever. 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 The EEG also showed severe widespread diffuse disturbance of cerebral function without any evidence of focal lateralized or epileptiform abnormalities. No seizure activity has been noted. Also, the patient was found to be profoundly hyponatremic. The sodium level was around 161 and she was started on D5 water initially at 100 mL which I increased up to 150 and earlier this morning her sodium level came down to 150. She also had a component of acute kidney injury secondary to intravascular volume depletion and this is also improving. A triple lumen catheter inserted knowing that the patient had a poor IV access. A Dobbhoff catheter was also inserted for enteral feeding. The patient was seen again today 05/14/2017 in follow-up in the intensive care unit. She continues to wax and wane in regards to her mental status. She does seem a little more alert today as compared to yesterday. She continues with a loose nonproductive cough. Chest x-ray reveals some mild central venous congestion without suspicious focal infiltrates. Her heart rate is better controlled. The diltiazem drip was discontinued. She remains on amiodarone at 0.5 mg per hour. Currently in sinus rhythm. She's been hemodynamically stable. Not on any pressors. She is afebrile. She is being followed by neurology who was planning a lumbar puncture today. Her INR was corrected to 1.4 via vitamin K and fresh frozen plasma. On 05/15/2017 the patient is being seen in follow-up in intensive care unit. I would say she is gradually becoming more awake. On today's evaluation she was having some limited conversation with the nurses. I felt that she was still lethargic and confused. Obviously her mentation is waxing and waning however she seems to be more awake and she opens her eyes spontaneously and mumbles and says few words. She pulled out her Dobbhoff catheter however she did not aspirate. The catheter will be reinserted for feeding purposes of medication. The patient was given fresh frozen plasma and vitamin K and her coagulopathy was reversed. The lumbar puncture was attempted by neurology yesterday evening without success as the patient had increased movement. Anesthesia will be consulted for the same. Her white cell count is at 18.2. Chest x-ray from today shows cardiomegaly with a new patchy bibasilar pulmonary infiltrates. The patient remains in sinus rhythm with occasional. Rate is controlled for now. Hemodynamically stable. Producing adequate amount of urine output. No fever or chills. On 05/16/2017 I'm seeing this patient in follow-up in the intensive care unit. The patient is opening her eyes spontaneously. She is trying to talk over his speech is garbled. At times she gets a bit agitated. I tried to give her some applesauce which she was able to swallow. A Dobbhoff catheter his been taken off. Electrodes are within normal limits. Lumbar puncture was completed and the CSF findings preliminary findings are stable and within normal limits and I' m awaiting for HSV by PCR. Chest x-ray findings are also stable. Electrolytes have improved and his sodium level has normalized. She is hemodynamically stable. Objective - Vital Signs Vital signs: Vital Signs Temp 98.1 F 05/16/17 08:00 Pulse 81 05/16/17 09:00 Resp 25 H 05/16/17 09:00 BP 150/82 05/16/17 09:00 Pulse Ox 100 05/16/17 09:00 Intake & Output 05/15/17 05/16/17 05/16/17 18:59 06:59 18:59 Intake Total 1100 925 225 Output Total 660 1065 285 Balance 440 -140 -60 Weight 56.6 kg 58.2 kg Intake: IV 1100 925 225 Dextrose 5%-0.45% NaCl 1, 900 925 225 000 ml @ 75 mls/hr IV . [id number] [facility] Rx#:[id number] Potassium Chloride 10 meq 200 In Water For Injection 1 100ml.bag @ 100 mls/hr IVPB Q1H [facility] Rx#: [id number] Output: Urine 660 1065 285 Other: Voiding Method Indwelling Catheter Indwelling Catheter Indwelling Catheter - Exam The patient will open her eyes to loud verbal command. mainly nonverbal. She' ll occasionally opens up her eyes spontaneously. She mumbles a few words. At times she is able to hold on few sentences and K small conversations. She'll occasionally withdraws to painful stimuli. Neurologically, there is no facial asymmetry, pupils around 3-4 mm in size and sluggishly reactive to light. No nystagmus or a preferential gaze. She has a weak gag. The patient is moving all 4 extremities. No Babinski. No clonus. DTRs are +1 and symmetrical. Sensory function cannot be accurately assessed. Motor function cannot be accurately assessed. Speech cannot be accurately assessed. The patient is moaning and groaning.Head exam was generally normal. There was no scleral icterus or corneal arcus. Mucous membranes were moist. Neck is supple and there is no JVDs no goiter or neck masses. Lungs sounds are diminished otherwise clear. Vessels are equal and symmetrical bilaterally. Heart sounds are irregular at times however at the time of my evaluation to sinus. Positive S1-S2. No cervical murmurs appreciated.Abdominal exam revealed normal bowel sounds. The abdomen was soft, non-tender, and without masses, organomegaly, or appreciable enlargement of the abdominal aorta.Examination of the extremities revealed easily palpable radial, femoral and pedal pulses. There was no cyanosis , clubbing or edema. - Labs CBC & Chem 7: 05/16/17 04:15 05/16/17 04:15 Labs: Abnormal Lab Results - Last 24 Hours (Table) 05/15/17 05/15/17 05/15/17 Range/Units 10:55 12:25 18:08 WBC (3.8-10.6) k/uL Neutrophils # (1.3-7.7) k/uL Glucose (74-99) mg/dL POC Glucose (mg/dL) 179 H 157 H (75-99) mg/dL ALT (9-52) U/L Total Protein (6.3-8.2) g/dL Albumin (3.5-5.0) g/dL CSF Glucose 108 H (40-70) mg/dL 05/15/17 05/15/17 05/16/17 Range/Units 19:59 23:10 04:15 WBC 16.7 H (3.8-10.6) k/uL Neutrophils # 14.1 H (1.3-7.7) k/uL Glucose (74-99) mg/dL POC Glucose (mg/dL) 125 H 112 H (75-99) mg/dL ALT (9-52) U/L Total Protein (6.3-8.2) g/dL Albumin (3.5-5.0) g/dL CSF Glucose (40-70) mg/dL 05/16/17 Range/Units 04:15 WBC (3.8-10.6) k/uL Neutrophils # (1.3-7.7) k/uL Glucose 134 H (74-99) mg/dL POC Glucose (mg/dL) (75-99) mg/dL ALT 58 H (9-52) U/L Total Protein 5.5 L (6.3-8.2) g/dL Albumin 2.8 L (3.5-5.0) g/dL CSF Glucose (40-70) mg/dL Microbiology - Last 24 Hours (Table) 05/13/17 06:46 Blood Culture - Preliminary Blood No Growth after 72 hours 05/15/17 10:55 CSF Gram Stain - Preliminary Cerebral Spinal Fluid Assessment and Plan Plan: Assessment 1 altered mentation with significant diminished level of consciousness. Likely improved as the patient's sodium level is normalized. The patient is much more alert and awake. She still has an underlying dementia. Lumbar puncture was completed and there is no acute abnormalities based on the findings. Awaiting HSV by PCR. 2 atrial fibrillation with rapid ventricular response, treated in the current rhythm is sinus 3 CHF with global hypokinesis and ejection fraction of 20% 4 non-Q-wave myocardial infarction 5 history of nonsustained ventricular tachycardia, currently inactive in stable 6 hypernatremia , recovered and the patient on half-normal saline D5 half- normal at the rate of 75 mL an hour 7 dementia 8 diabetes mellitus 9 hyperlipidemia 7 hypertension 8 limited bibasilar pulmonary infiltrate, rule out aspiration Plan We'll do a swallow evaluation the morning. Based on my evaluation at the bedside, the patient is able to swallow some applesauce. We will give her some and as the day goes by we'll decide if we have to advance her diet. Continue D5 half-normal state rate of 75 mL an hour. Aspiration precautions. No need for a Dobbhoff catheter may need a PEG tube insertion if swallow evaluation comes back abnormal. She has a sitter. She may be transferred out of the intensive care unit at a later stage.
--- NOTE | 2017-05-16 11:11 | P.PN ---
Subjective This patient is a 81-year-old female admitted with altered mental status and confusion. She is noted today to have ongoing symptoms of underlying cognitive impairment and dementia. She is able to answer only a few questions appropriately. We will continue close neurological follow-up with this patient during this admission. The patient is laying in bed and is quite confused this evening. She is not sure why she was admitted to the hospital. She was noted to continue due to mistreated evidence of confusion early this morning. As noted she did have an acute non-Q wave myocardial infarction on admission. She is being evaluated and treated by cardiology for this condition. She does have evidence of atrial fibrillation but is not a candidate for long-term anticoagulation due to her multiple risk of fall. Overall the patient seems to be doing about the same today. She does have evidence of underlying dementia as well. We will continue current neurological evaluation and monitoring of this patient. Her overall prognosis at this time remains very guarded. Her speech is fluent with no evidence of any aphasia. We will continue close neurological workup for this patient with altered mental status. She does have history of underlying dementia. According to her she was diagnosed only recently after she had failed a memory test by her primary care physician. We have explained to the that dementia does not develop over a matter of weeks or months but usually takes years. Currently she was transferred to the intensive care unit this evening as she had developed evidence of SVT. Cardiology has started her on a Cardizem drip as well as amiodarone drip. She was transferred to the ICU this evening. She remains obtunded and lethargic. She does not open her eyes. Her last computed tomography scan of the brain was completed on 05/07/2017 and failed to reveal any acute changes. We will obtain a follow-up computed tomography scan of the brain today. She is unable to have an MRI of the brain that she has a pacemaker. Patient underwent computed tomography scan of the brain today. CAT scan reveals evidence of cerebral atrophy. There was no acute intracranial abnormality. 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 The patient remains obtunded in the ICU. She is still not opening her eyes according to the ICU nursing staff. She remains lethargic but moving all extremities. We have discussed in detail with the son yesterday that sudden decline in her potential for dementia would not explain her current findings. We have recommended to consider undergoing lumbar puncture for this patient to rule out any possibility of encephalitis and /or meningitis. She has remained afebrile in the ICU setting. We have obtained consent for lumbar puncture today from the son. We will arrange for LP to be done today for further evaluation. We did attempt to do a lumbar puncture at her bedside in the ICU today. Due to her agitation and movement the LP was unsuccessful. Lumbar puncture was completed yesterday by anesthesia. As noted her initial spinal fluid results are negative for any evidence of meningitis at this time. We will await the final results of the spinal fluid analysis. Spinal fluid analysis orders were given to the ICU nurse. Overall the patient does show improvement in her level of consciousness as compared to yesterday. She is more talkative today. We will complete evaluation with the spinal fluid analysis hopefully to be completed tomorrow. Anesthesia was consulted yesterday and was able to complete a lumbar puncture this morning. Preliminary results indicate no evidence of any meningitis based on Gram stain results. We will await other spinal fluid results to return from the laboratory. According to the nursing staff she is showing slow improvement in her overall cognitive function and is able to answer a few questions. At times she does give appropriate answers to questions. She does seem to have a diffuse metabolic encephalopathy at this time. As noted her spinal fluid results have been collected and we are awaiting final results to return from the laboratory. Gram stain was negative for any organisms. Blood cultures are negative at 72 hours. CSF cultures are still pending today. The patient is much more awake today. She does have a sitter at bedside. She does seem to be more appropriate and is more talkative as compared to initial evaluation. Her findings are still very much consistent with a diffuse metabolic encephalopathy. Her overall prognosis at this time remains guarded. We will continue close neurological follow-up with this patient in the intensive care unit. Objective - Vital Signs Vital signs: Vital Signs Temp 98.1 F 05/16/17 08:00 Pulse 96 05/16/17 08:00 Resp 28 H 05/16/17 08:00 BP 131/96 05/16/17 08:00 Pulse Ox 99 05/16/17 08:00 Intake & Output 05/15/17 05/16/17 05/16/17 18:59 06:59 18:59 Intake Total 1100 925 150 Output Total 660 1065 135 Balance 440 -140 15 Weight 56.6 kg 58.2 kg Intake: IV 1100 925 150 Dextrose 5%-0.45% NaCl 1, 900 925 150 000 ml @ 75 mls/hr IV . [id number] [facility] Rx#:[id number] Potassium Chloride 10 meq 200 In Water For Injection 1 100ml.bag @ 100 mls/hr IVPB Q1H [facility] Rx#: [id number] Output: Urine 660 1065 135 Other: Voiding Method Indwelling Catheter Indwelling Catheter Indwelling Catheter - Exam Physical examination: PHYSICAL EXAMINATION: Patient is resting comfortably in bed. VITAL SIGNS: Blood pressure is [131/96]. Heart rate is [96]. Respiration is [28] . Temperature is [98.1]. HEENT: Head is atraumatic, neck is supple, there were no carotid bruits. CHEST: Lungs are clear to auscultation and percussion. CARDIAC: S1, S2 normal rate and rhythm. There is no murmur. ABDOMEN: Soft and nontender. Bowel sounds are present. EXTREMITIES: There is no pedal edema. Peripheral pulses are present. Neurological examination: Patient is awake alert and oriented 2. Her speech is slow but fluent. Her memory and intellectual functions are impaired. The patient is not opening her eyes during examination in the ICU. She is not combative but seems to be very restless. She has no evidence of nuchal rigidity or meningismus on examination. Her remaining neurological examination is unchanged from yesterday. Patient does seem to be more awake and alert today. Her speech is at least more comprehensible today as compared to yesterday. She continues to show improvement daily in the ICU. She is still not following commands. We will continue close neurological follow-up of this patient in the ICU setting. - Labs CBC & Chem 7: 05/16/17 04:15 05/16/17 04:15 Labs: Abnormal Lab Results - Last 24 Hours (Table) 05/15/17 05/15/17 05/15/17 Range/Units 10:55 12:25 18:08 WBC (3.8-10.6) k/uL Neutrophils # (1.3-7.7) k/uL Glucose (74-99) mg/dL POC Glucose (mg/dL) 179 H 157 H (75-99) mg/dL ALT (9-52) U/L Total Protein (6.3-8.2) g/dL Albumin (3.5-5.0) g/dL CSF Glucose 108 H (40-70) mg/dL 05/15/17 05/15/17 05/16/17 Range/Units 19:59 23:10 04:15 WBC 16.7 H (3.8-10.6) k/uL Neutrophils # 14.1 H (1.3-7.7) k/uL Glucose (74-99) mg/dL POC Glucose (mg/dL) 125 H 112 H (75-99) mg/dL ALT (9-52) U/L Total Protein (6.3-8.2) g/dL Albumin (3.5-5.0) g/dL CSF Glucose (40-70) mg/dL 05/16/17 Range/Units 04:15 WBC (3.8-10.6) k/uL Neutrophils # (1.3-7.7) k/uL Glucose 134 H (74-99) mg/dL POC Glucose (mg/dL) (75-99) mg/dL ALT 58 H (9-52) U/L Total Protein 5.5 L (6.3-8.2) g/dL Albumin 2.8 L (3.5-5.0) g/dL CSF Glucose (40-70) mg/dL Microbiology - Last 24 Hours (Table) 05/13/17 06:46 Blood Culture - Preliminary Blood No Growth after 72 hours 05/15/17 10:55 CSF Gram Stain - Preliminary Cerebral Spinal Fluid Assessment and Plan (1) Acute encephalopathy Status: Acute Code(s): G93.40 - ENCEPHALOPATHY, UNSPECIFIED (2) Dementia Status: Acute Code(s): F03.90 - UNSPECIFIED DEMENTIA WITHOUT BEHAVIORAL DISTURBANCE (3) NSTEMI (non-ST elevated myocardial infarction) Status: Acute Code(s): I21.4 - NON-ST ELEVATION (NSTEMI) MYOCARDIAL INFARCTION (4) Near syncope Status: Acute Code(s): R55 - SYNCOPE AND COLLAPSE Plan: This patient is a 81-year-old female who was initially admitted to Hospital with symptoms of chest pain and altered mental status. Patient continued to show evidence of worsening mental status changes since her admission to the hospital. She was recently being diagnosed and worked up for underlying dementia. Patient was seen by cardiology and she was diagnosed as having an acute non-ST segment elevation myocardial infarction. She also has a severely impaired LV function with an ejection fraction of less than 20% on echocardiogram study. She also has chronic atrial fibrillation. She is unable to go for MRI she also has a pacemaker. She has remained quite confused. She underwent a repeat computed tomography scan of the brain today the results of which are noted above. CAT scan fails to reveal any evidence of acute stroke or hemorrhage. There is evidence of an old left insular infarct. Patient remains somewhat obtunded with no clear evidence of her underlying etiology for severe encephalopathy. We did discuss her findings in detail with the son yesterday in the ICU. We have explained that her dementia would not worsen significantly in a period of a few weeks. We have recommended today for the patient to be considered for lumbar puncture for further evaluation to rule out possibility of encephalitis and/or meningitis. The son was contacted today for consent to proceed with LP and this was given to us over the phone. The patient does remain afebrile. She is still not opening her eyes very much since reevaluation yesterday. She does have evidence of underlying moderate to severe encephalopathy based on her recent EEG. We will continue close neurological follow-up of this patient in the intensive care unit. As noted we would like to proceed with lumbar puncture to rule out any other possible etiologies for her acute mental status changes. Case was discussed today with Dr. Viera. He is in full agreement to proceed with LP for this patient. We did attempt a lumbar puncture this evening at the patient's bedside in the ICU. Due to her movement and agitation we were unable to successfully obtain spinal fluid. We did consult anesthesia yesterday and they were able to complete a lumbar puncture and spinal fluid has been sent for CSF analysis. Her initial spinal fluid was negative on Gram stain testing for any organisms. A full array of testing is still pending from the laboratory. She remains afebrile. We did discuss today the reasoning for lumbar puncture with the patient's son who was at bedside. He has given consent. Patient was able to undergo a lumbar puncture by anesthesia yesterday. Preliminary results of the spinal fluid indicate no evidence for meningitis based on the CSF results. An array of other tests are still pending and we will need to await those final reports. Patient does show slight improvement in her overall mental status today. She is more engaging and is trying to say sentences in a concrete manner. She remains afebrile today. She does have a sitter at bedside. She has been cooperative and not severely agitated as a few days ago. She continues to demonstrate evidence of a diffuse encephalopathy which is slowly improving. Her overall prognosis at this time remains guarded. Case was discussed today with Dr. Viera and and he was updated on her overall neurological status. We will update the son when he is available in the ICU in regards to her current neurological status. We will continue close neurological follow-up of this patient in the intensive care unit.
--- NOTE | 2017-05-16 11:46 | CONS ---
CONSULTATION DATE OF SERVICE: 05/15/2017. PURPOSE OF CONSULTATION: Evaluate for altered mental status with nonresponsiveness. INTERVAL HISTORY: The patient was seen briefly yesterday though she continued in her same manner of being minimally responsive. Today she has done quite a bit better. She still is quite lethargic though she will open her eyes. She has been talking. Nursing says that sometimes she can actually complete a sentence. She has awareness that she is in the hospital. She has some general orientation to her situation. Sometimes she rambles and says a few things that do not make much sense though other times she says things that are meaningful and purposeful. When I saw the patient, she opened her eyes, about detention open. She said a few things. When I asked some questions she gave some appropriate responses. She seem to struggle with coming up with a basic orientation questions. She could not come up with the month though when I said it was May and that she had been sleeping for several days. She said that she was surprised at that. She smiled a little. She was not distressed. ASSESSMENT: I will continue the current diagnosis and treatment plan. At this point, I will continue to monitor. There could be consideration for another trial of Ativan in relationship to possible catatonia though given her progress, I would not initiate any other treatment at this time. ARELY / UADREYN: [id number] /
[2017-05-16 12:19] LABS: Glucose,Whole Blood 142 mg/dL (75-99)
--- NOTE | 2017-05-16 12:31 | P.PN ---
Subjective Patient is more alert today. She was able to get some applesauce and responsive the nurse's questions area. She was very sleepy when I saw her. Objective - Vital Signs Vital signs: Vital Signs Temp 98.1 F 05/16/17 08:00 Pulse 103 H 05/16/17 11:00 Resp 28 H 05/16/17 11:00 BP 129/91 05/16/17 11:00 Pulse Ox 99 05/16/17 11:00 Intake & Output 05/15/17 05/16/17 05/16/17 18:59 06:59 18:59 Intake Total 1100 925 375 Output Total 660 1065 460 Balance 440 -140 -85 Weight 56.6 kg 58.2 kg Intake: IV 1100 925 375 Dextrose 5%-0.45% NaCl 1, 900 925 375 000 ml @ 75 mls/hr IV . [id number] [facility] Rx#:[id number] Potassium Chloride 10 meq 200 In Water For Injection 1 100ml.bag @ 100 mls/hr IVPB Q1H [facility] Rx#: [id number] Output: Urine 660 1065 460 Other: Voiding Method Indwelling Catheter Indwelling Catheter Indwelling Catheter - Exam General: The patient is lethargic and hardly arousable Neck: The neck is supple, there is no JVD. Cardiovascular: Normal S1-S2, no S3-S4, no murmurs. Respiratory: Lungs with diffuse rhonchi and rales all over the chest Gastrointestinal: Abdomen is soft, nontender Musculoskeletal: There is no pedal edema. Skin: Skin is warm and dry - Labs CBC & Chem 7: 05/16/17 04:15 05/16/17 04:15 Labs: Abnormal Lab Results - Last 24 Hours (Table) 05/15/17 05/15/17 05/15/17 Range/Units 18:08 19:59 23:10 WBC (3.8-10.6) k/uL Neutrophils # (1.3-7.7) k/uL Glucose (74-99) mg/dL POC Glucose (mg/dL) 157 H 125 H 112 H (75-99) mg/dL ALT (9-52) U/L Total Protein (6.3-8.2) g/dL Albumin (3.5-5.0) g/dL 05/16/17 05/16/17 05/16/17 Range/Units 04:15 04:15 12:17 WBC 16.7 H (3.8-10.6) k/uL Neutrophils # 14.1 H (1.3-7.7) k/uL Glucose 134 H (74-99) mg/dL POC Glucose (mg/dL) 142 H (75-99) mg/dL ALT 58 H (9-52) U/L Total Protein 5.5 L (6.3-8.2) g/dL Albumin 2.8 L (3.5-5.0) g/dL Microbiology - Last 24 Hours (Table) 05/13/17 06:46 Blood Culture - Preliminary Blood No Growth after 72 hours 05/15/17 10:55 CSF Gram Stain - Preliminary Cerebral Spinal Fluid Assessment and Plan Plan: 1. Acute toxo metabolic encephalopathy 2. Hypovolemic hypernatremia, improving 3. Severe dehydration 4. Starvation ketosis with elevated lactic acid, resolved 5. Acute Non-Q-wave myocardial infarction present on admission: She has been evaluated by cardiology the recommending medical management. 6. supraventricular tachycardia seen and evaluated by cardiology now on IV amiodarone drip. Heart rate well controlled. 7. history of Atrial fibrillation with rapid ventricular response: now receiving IV metoprolol Patient not a good candidate for anticoagulation because of her risks of multiple falls 8. Hyperlipidemia continue statin 9. Acute on chronic systolic CHF: last Echo shows an EF of less than 20%. 10. Diabetes mellitus type 2: Hemoglobin A1c of 6.9. add Lantus 10 units once a day and continue sliding scale insulin 11. Dementia/underlying cognitive impairment 12. Essential hypertension 13. Generalized anxiety disorder Today, I reviewed her medication list and lab work results. Continue supportive care. Transfer to telemetry floor outside the ICU. Computed tomography scan of the brain showed no acute findings. Status post LP awaiting lab work results. No family members at bedside to be updated.
--- NOTE | 2017-05-16 13:38 | P.PN ---
Progress Note - Text Patient admitted with non-Q-wave myocardial infarction. Treated medically. Subsequently significant deterioration in neurologic status. No significant or meaningful improvement seen. Currently DO NOT RESUSCITATE. Continue medical treatment with aspirin atorvastatin and beta blockers. Patient has a recent history of paroxysmal atrial fibrillation, as an inpatient. She has not been anticoagulated in the past because she would fall very frequently. She has a permanent pacemaker and he also noticed nonsustained atrial tachycardia on pacemaker but no sustained atrial fibrillation in the past Overall prognosis looking at her progressive neurologic worsening seems poor History of progressive dementia noted as an outpatient
[2017-05-16] MEDS: LORazepam 2 MG/ML SYRINGE IV PRN (15:40)
[2017-05-16 18:09] LABS: Glucose,Whole Blood 149 mg/dL (75-99)
[2017-05-16] MEDS: ATORVASTATIN 20 MG TAB PO SCH (20:48)
[2017-05-16] MEDS: INSULIN GLARGINE 100 UNIT/ML 10 ML VIAL SQ SCH (20:48)
--- NOTE | 2017-05-16 21:22 | CONS ---
CONSULTATION DATE OF CONSULTATION: 05/16/2017 REASON FOR CONSULTATION: Evaluate for altered mental status with nonresponsiveness. INTERVAL HISTORY: The patient has been doing fair in the last 2 days. She has started showing improvement in her mental status. She has been talking and at times making some appropriate communications. Today the sitter that was with her said that she has been talking quite a bit though it is difficult to understand what she is saying. She seems to be talking in word salad more than not, though she has some slurred soft speech so it is difficult to really hear her words. When I talked to her and asked her some questions there were a few times that she seemed to be able to get out something close to an appropriate response. When I saw her, she was lying in bed. She her eyes were open. She was actually mumbling pretty continuously. She would smile some. She would stop when I asked questions. She did appear to be distressed. ASSESSMENT: My understanding is that the patient will be transferred out of ICU. She is making slow progress. There might be consideration for another trial of a single dose of Ativan possibly my recommendation would be possibly 2 mg IM or IV. The aim would be to see if she shows any response in regards to the condition of Catatonia with capital C which is a complex psychiatric condition with a neurologic impact. Moderate to high dose Ativan is treatment of choice. If she were to receive a challenge dose, I would look within the first 1-2 hours of some mental status clearing. At this point, I am not available for further follow up for the patient. If there are specific psychiatric concerns identified please re-consult for psychiatry. MMTAIWOL / JORGE: [id number] /
[2017-05-17 00:08] LABS: Glucose,Whole Blood 147 mg/dL (75-99)
[2017-05-17] MEDS: METOPROLOL TARTRATE 5 MG/5 ML VIAL IVP SCH ×4 (00:12→23:33)
[2017-05-17] MEDS: INSULIN LISPRO (humaLOG) 300 UNIT/3 ML VIAL SQ SCH ×5 (00:12→23:44)
[2017-05-17 06:08] LABS: Glucose,Whole Blood 135 mg/dL (75-99)
[2017-05-17] MEDS: DEXTROSE 5%-0.45% NACL 1,000 ML IV SCH ×2 (06:27→20:46)
[2017-05-17] MEDS: ASPIRIN 300 MG SUPP RECTAL SCH (09:08)
[2017-05-17] MEDS: ENOXAPARIN 40 MG/0.4 ML SYRINGE SQ SCH (09:08)
--- NOTE | 2017-05-17 09:25 | XR ---
EXAMINATION TYPE: XR chest 1V DATE OF EXAM: 05/17/2017 COMPARISON: Prior chest x-ray 05/16/2017 HISTORY: Shortness of breath, altered mental status TECHNIQUE: Single frontal view of the chest is obtained. FINDINGS: Patient is rotated. Heart size may be accentuated by rotation. Pacemaker is stable. Right jugular central venous catheter shows the distal tip in the right atrium. There is no evident pneumot horax or pleural effusion. Nodule persists in the right midlung and is calcified. Postop change noted to the mandible. Surgical clips present in the gastroesophageal junction. Patchy retrocardiac densit y again seen. IMPRESSION: No significant interval change. Probable left lower lobe atelectasis. Cardiomegaly. Tejal elate to exclude pneumonia. Old granulomatous disease. Follow-up suggested.
--- NOTE | 2017-05-17 10:28 | P.PN ---
Subjective Principal diagnosis: Non-STEMI This is an 81-year-old female with past medical history of dementia, hypertension, hyperlipidemia, chronic vertigo, anxiety, diabetes, who was brought to the emergency center with chest discomfort. She ruled in for non-Q- wave myocardial infarction. Maximal medical therapy was recommended. Patient this morning continues to be confused. White blood cell count 19,000 this morning. Patient was lying naked in her bed, continues taking her clothes off. From cardiology's perspective, we'll continue current medications. 05/17/2017 Patient seen and examined this morning, continues to be quite confused. Denying any chest discomfort or pain. Refusing to take any oral medications. Once the patient is willing to take some oral medications we will change her IV beta blockers to oral, and add a small dose of Imdur to her medication regime. Objective - Vital Signs Vital signs: Vital Signs Temp 97.7 F 05/17/17 04:00 Pulse 94 05/17/17 04:00 Resp 16 05/17/17 08:00 BP 127/75 05/17/17 08:00 Pulse Ox 94 L 05/17/17 08:00 Intake & Output 05/16/17 05/17/17 05/17/17 18:59 06:59 18:59 Intake Total 675 900 Output Total 785 1150 Balance -110 -250 Weight 42.8 kg Intake: IV 675 900 Dextrose 5%-0.45% NaCl 1, 675 900 000 ml @ 75 mls/hr IV . [id number] [facility] Rx#:[id number] Output: Urine 785 1150 Uretheral (Albarran) 1150 Other: Voiding Method Indwelling Catheter Indwelling Catheter # Voids 0 - Exam PHYSICAL EXAMINATION: HEENT: Head is atraumatic, normocephalic. Pupils equal, round. Neck is supple. There is no elevated jugular venous pressure. HEART EXAMINATION: Heart S1, S2 normal. No murmur or gallop heard. CHEST EXAMINATION: Lungs are clear to auscultation and precussion. No chest wall tenderness is noted on palpation or with deep breathing. ABDOMEN: Soft, nontender. Bowel sounds are heard. No organomegaly noted. EXTREMITIES: 2+ peripheral pulses with no evidence of peripheral edema and no calf tenderness noted. NEUROLOGIC [patient is confused - Labs CBC & Chem 7: 05/16/17 04:15 05/16/17 04:15 Labs: Abnormal Lab Results - Last 24 Hours (Table) 05/16/17 05/16/17 05/16/17 Range/Units 12:17 17:58 23:56 POC Glucose (mg/dL) 142 H 149 H 147 H (75-99) mg/dL 05/17/17 Range/Units 05:57 POC Glucose (mg/dL) 135 H (75-99) mg/dL Microbiology - Last 24 Hours (Table) 05/13/17 06:46 Blood Culture - Preliminary Blood No Growth after 96 hours 05/15/17 10:55 CSF Gram Stain - Preliminary Cerebral Spinal Fluid CSF Culture - Preliminary Assessment and Plan (1) Chronic a-fib Status: Acute (2) Hyperlipemia Status: Acute (3) HTN (hypertension) Status: Acute (4) Mental status change Status: Acute (5) Dementia Status: Acute (6) NSTEMI (non-ST elevated myocardial infarction) Status: Acute (7) Diabetes Status: Acute Plan: From cardiology's perspective, we'll continue maximal medical therapy. Once the patient is able to take oral medications we will discontinue the IV Lopressor and start the patient on oral. We will ALSO add a small dose of beta genet. We will follow this patient with you now on an as-needed basis only, please don't hesitate to call with any questions. DNP note has been reviewed, I agree with a documented findings and plan of care. Patient was seen and examined.
[2017-05-17 11:56] LABS: Glucose,Whole Blood 148 mg/dL (75-99)
--- NOTE | 2017-05-17 12:10 | P.PN ---
Subjective Patient is doing a lot better today. She is awake and alert. She is answering simple yes or no questions. She is oriented to hersel and to place.f Objective - Vital Signs Vital signs: Vital Signs Temp 97.7 F 05/17/17 04:00 Pulse 94 05/17/17 04:00 Resp 16 05/17/17 08:00 BP 127/75 05/17/17 08:00 Pulse Ox 94 L 05/17/17 08:00 Intake & Output 05/16/17 05/17/17 05/17/17 18:59 06:59 18:59 Intake Total 675 900 Output Total 785 1150 Balance -110 -250 Weight 42.8 kg Intake: IV 675 900 Dextrose 5%-0.45% NaCl 1, 675 900 000 ml @ 75 mls/hr IV . [id number] [facility] Rx#:[id number] Output: Urine 785 1150 Uretheral (Albarran) 1150 Other: Voiding Method Indwelling Catheter Indwelling Catheter Indwelling Catheter # Voids 0 0 - Exam General: The patient is awake and alert, in no distress Eye: there is normal conjunctiva bilaterally. Neck: The neck is supple, there is no JVD. Cardiovascular: Normal S1-S2, no S3-S4, no murmurs. Respiratory: Lungs clear to auscultation bilaterally Gastrointestinal: Abdomen is soft, nontender Musculoskeletal: There is no pedal edema. Neurological:. Speech is normal. Skin: Skin is warm and dry - Labs CBC & Chem 7: 05/16/17 04:15 05/16/17 04:15 Labs: Abnormal Lab Results - Last 24 Hours (Table) 05/16/17 05/16/17 05/16/17 Range/Units 12:17 17:58 23:56 POC Glucose (mg/dL) 142 H 149 H 147 H (75-99) mg/dL 05/17/17 05/17/17 Range/Units 05:57 11:46 POC Glucose (mg/dL) 135 H 148 H (75-99) mg/dL Microbiology - Last 24 Hours (Table) 05/13/17 06:46 Blood Culture - Preliminary Blood No Growth after 96 hours 05/15/17 10:55 CSF Gram Stain - Preliminary Cerebral Spinal Fluid CSF Culture - Preliminary Assessment and Plan Plan: 1. Acute toxo metabolic encephalopathy 2. Hypovolemic hypernatremia, improving 3. Severe dehydration 4. Starvation ketosis with elevated lactic acid, resolved 5. Acute Non-Q-wave myocardial infarction present on admission: She has been evaluated by cardiology the recommending medical management. 6. supraventricular tachycardia seen and evaluated by cardiology now on IV amiodarone drip. Heart rate well controlled. 7. history of Atrial fibrillation with rapid ventricular response: now receiving IV metoprolol Patient not a good candidate for anticoagulation because of her risks of multiple falls 8. Hyperlipidemia continue statin 9. Acute on chronic systolic CHF: last Echo shows an EF of less than 20%. 10. Diabetes mellitus type 2: Hemoglobin A1c of 6.9. add Lantus 10 units once a day and continue sliding scale insulin 11. Dementia/underlying cognitive impairment 12. Essential hypertension 13. Generalized anxiety disorder Today, I reviewed her medication list and lab work results. Continue supportive care. Awaiting swallow study today. May transition to oral medication afterward. Avoid benzodiazepine. No family members at bedside to be updated.
[2017-05-17 12:26] LABS: Basophils % (A) 0 %; CH 29.8; CHCM 31.2; Eosinophils # (A) 0.3 k/uL (0-0.7); Eosinophils % (A) 2 %; HCT 40.6 % (34.0-46.0); HDW 2.28; HGB 13.3 gm/dL (11.4-16.0); Luc # (Auto) 0.29; Luc % (Auto) 2; Lymphocytes # (A) 1.1 k/uL (1.0-4.8); Lymphocytes % (A) 7 %; MCH 31.5 pg (25.0-35.0); MCHC 32.8 g/dL (31.0-37.0); MCV 95.9 fL (80.0-100.0); Mean Platelet Volume 9.1; Monocytes # (A) 0.9 k/uL (0-1.0); Monocytes % (A) 6 %; Neutrophils # (A) 12.6 k/uL (1.3-7.7); Neutrophils % (A) 83 %; RBC 4.23 m/uL (3.80-5.40); RDW 12.8 % (11.5-15.5); WBC 15.2 k/uL (3.8-10.6); WBC (Perox) 16.45
[2017-05-17 12:28] LABS: Anion Gap 6 mmol/L; Blood Urea Nitrogen 10 mg/dL (7-17); Calcium 8.8 mg/dL (8.4-10.2); Carbon Dioxide 23 mmol/L (22-30); Chloride 108 mmol/L (98-107); Glucose 143 mg/dL (74-99); Non-African American GFR(MDRD) >60 (>60 ml/min/1.73 sqM); Sodium 137 mmol/L (137-145)
[2017-05-17] MEDS: NITROGLYCERIN OINT 1 INCH/GM PACKET TOPICAL SCH ×3 (12:28→23:33)
--- NOTE | 2017-05-17 13:25 | FL ---
EXAMINATION TYPE: FL barium swallow w video DATE OF EXAM: 05/17/2017 COMPARISON: NONE HISTORY: Dysphasia difficulty swallowing TECHNIQUE: Fluoroscopy. FINDINGS: Fluoroscopic guidance was provided for the procedure performed in conjunction with the [facility] pathology department. Please see complete report forthcoming from the Speech Pathology departmen t. Various consistencies from thin liquid to solids were administered. Brain thick liquids and necta r thick liquids were utilized for evaluation. Fluoroscopy time 58 seconds Number of images: 0. No aspiration or penetration was evident. No significant pooling was observed in the vallecula. There is poor propulsion of the oral pharyngeal bolus. IMPRESSION: 1. No aspiration or penetration
--- NOTE | 2017-05-17 14:03 | P.PN ---
Subjective Principal diagnosis: Acute non-ST segment elevation myocardial infarction and severely impaired LV function An 81-year-old female patient with known history of dementia who was admitted to the hospital because of chest pain. Her son who is the primary caregiver noted that the patient was complaining of chest discomfort. The patient was brought into the emergency department because of chest pain. A cardiology evaluation was done and the patient was diagnosed having a acute non-ST segment elevation myocardial infarction. She has a severely impaired LV function with an ejection fraction of less than 20% based on echocardiogram study. She also has a chronic atrial fibrillation. During the same hospitalization the patient was found to be quite confused and she continued to have altered mental status and progressively became completely unresponsive. The patient was brought in to the intensive care yesterday as her cardiac rhythm went tachycardic and the patient was brought in for a potential problem of an SVT. I do not see was given during a emergency situation and the patient did not respond an underlying rhythm was reviewed and seems that the patient was in a flutter rhythm. I think that the patient was in a combination of tachycardia in the setting of atrial fibrillation/flutter. In the ICU, the patient was given Cardizem drip and beta blockers. The heart rate slowed down and currently she is back to normal sinus. She remained hemodynamically stable throughout this event. Neurologically however the patient remains unresponsive. Neurology is following the patient had psychiatry is following the patient. At one point she was thought to be catatonic and she was given a trial of Ativan which again failed to improve her condition. CAT scan of the brain has been done on admission and a repeat CAT scan of the brain was done this afternoon and it showed cerebral atrophy without any acute intracranial abnormalities. No neck stiffness. No fever. 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 The EEG also showed severe widespread diffuse disturbance of cerebral function without any evidence of focal lateralized or epileptiform abnormalities. No seizure activity has been noted. Also, the patient was found to be profoundly hyponatremic. The sodium level was around 161 and she was started on D5 water initially at 100 mL which I increased up to 150 and earlier this morning her sodium level came down to 150. She also had a component of acute kidney injury secondary to intravascular volume depletion and this is also improving. A triple lumen catheter inserted knowing that the patient had a poor IV access. A Dobbhoff catheter was also inserted for enteral feeding. The patient was seen again today 05/14/2017 in follow-up in the intensive care unit. She continues to wax and wane in regards to her mental status. She does seem a little more alert today as compared to yesterday. She continues with a loose nonproductive cough. Chest x-ray reveals some mild central venous congestion without suspicious focal infiltrates. Her heart rate is better controlled. The diltiazem drip was discontinued. She remains on amiodarone at 0.5 mg per hour. Currently in sinus rhythm. She's been hemodynamically stable. Not on any pressors. She is afebrile. She is being followed by neurology who was planning a lumbar puncture today. Her INR was corrected to 1.4 via vitamin K and fresh frozen plasma. On 05/15/2017 the patient is being seen in follow-up in intensive care unit. I would say she is gradually becoming more awake. On today's evaluation she was having some limited conversation with the nurses. I felt that she was still lethargic and confused. Obviously her mentation is waxing and waning however she seems to be more awake and she opens her eyes spontaneously and mumbles and says few words. She pulled out her Dobbhoff catheter however she did not aspirate. The catheter will be reinserted for feeding purposes of medication. The patient was given fresh frozen plasma and vitamin K and her coagulopathy was reversed. The lumbar puncture was attempted by neurology yesterday evening without success as the patient had increased movement. Anesthesia will be consulted for the same. Her white cell count is at 18.2. Chest x-ray from today shows cardiomegaly with a new patchy bibasilar pulmonary infiltrates. The patient remains in sinus rhythm with occasional. Rate is controlled for now. Hemodynamically stable. Producing adequate amount of urine output. No fever or chills. On 05/16/2017 I'm seeing this patient in follow-up in the intensive care unit. The patient is opening her eyes spontaneously. She is trying to talk over his speech is garbled. At times she gets a bit agitated. I tried to give her some applesauce which she was able to swallow. A Dobbhoff catheter his been taken off. Electrodes are within normal limits. Lumbar puncture was completed and the CSF findings preliminary findings are stable and within normal limits and I' m awaiting for HSV by PCR. Chest x-ray findings are also stable. Electrolytes have improved and his sodium level has normalized. She is hemodynamically stable. On 05/17/2017, I'm seeing this patient on follow-up, she just came back from her swallow evaluation, results of which are pending. Patient remains confused, speech is garbled, final report on the lumbar puncture is pending, chest x-ray has been relatively stable. Probable left lower lobe atelectasis persists, difficult to rule out underlying pneumonia but felt to be less likely. WBC count is 15.2 hemoglobin is normal basic metabolic profile is normal. Objective - Vital Signs Vital signs: Vital Signs Temp 97.7 F 05/17/17 04:00 Pulse 94 05/17/17 04:00 Resp 16 05/17/17 12:00 BP 127/75 05/17/17 08:00 Pulse Ox 94 L 05/17/17 08:00 Intake & Output 05/16/17 05/17/17 05/17/17 18:59 06:59 18:59 Intake Total 675 900 Output Total 785 1150 Balance -110 -250 Weight 42.8 kg 42.8 kg Intake: IV 675 900 Dextrose 5%-0.45% NaCl 1, 675 900 000 ml @ 75 mls/hr IV . [id number] [facility] Rx#:[id number] Output: Urine 785 1150 Uretheral (Albarran) 1150 Other: Voiding Method Indwelling Catheter Indwelling Catheter Indwelling Catheter # Voids 0 0 - Exam The patient will open her eyes to loud verbal command. mainly nonverbal. She' ll occasionally opens up her eyes spontaneously. She mumbles a few words. At times she is able to hold on few sentences and K small conversations. She'll occasionally withdraws to painful stimuli. Neurologically, there is no facial asymmetry, pupils around 3-4 mm in size and sluggishly reactive to light. No nystagmus or a preferential gaze. She has a weak gag. The patient is moving all 4 extremities. No Babinski. No clonus. DTRs are +1 and symmetrical. Sensory function cannot be accurately assessed. Motor function cannot be accurately assessed. Speech cannot be accurately assessed. The patient is moaning and groaning.Head exam was generally normal. There was no scleral icterus or corneal arcus. Mucous membranes were moist. Neck is supple and there is no JVDs no goiter or neck masses. Lungs sounds are diminished otherwise clear. Vessels are equal and symmetrical bilaterally. Heart sounds are irregular at times however at the time of my evaluation to sinus. Positive S1-S2. No cervical murmurs appreciated.Abdominal exam revealed normal bowel sounds. The abdomen was soft, non-tender, and without masses, organomegaly, or appreciable enlargement of the abdominal aorta.Examination of the extremities revealed easily palpable radial, femoral and pedal pulses. There was no cyanosis , clubbing or edema. - Labs CBC & Chem 7: 05/17/17 05:58 05/17/17 05:58 Labs: Abnormal Lab Results - Last 24 Hours (Table) 05/16/17 05/16/17 05/17/17 Range/Units 17:58 23:56 05:57 WBC (3.8-10.6) k/uL Neutrophils # (1.3-7.7) k/uL Chloride (98-107) mmol/L Glucose (74-99) mg/dL POC Glucose (mg/dL) 149 H 147 H 135 H (75-99) mg/dL 05/17/17 05/17/17 05/17/17 Range/Units 05:58 05:58 11:46 WBC 15.2 H (3.8-10.6) k/uL Neutrophils # 12.6 H (1.3-7.7) k/uL Chloride 108 H (98-107) mmol/L Glucose 143 H (74-99) mg/dL POC Glucose (mg/dL) 148 H (75-99) mg/dL Microbiology - Last 24 Hours (Table) 05/13/17 06:46 Blood Culture - Preliminary Blood No Growth after 96 hours 05/15/17 10:55 CSF Gram Stain - Preliminary Cerebral Spinal Fluid CSF Culture - Preliminary Assessment and Plan Plan: 1 altered mentation with significant diminished level of consciousness. Likely improved as the patient's sodium level is normalized. The patient is much more alert and awake. She still has an underlying dementia. Lumbar puncture was completed and there is no acute abnormalities based on the findings. Awaiting HSV by PCR. 2 atrial fibrillation with rapid ventricular response, treated in the current rhythm is sinus 3 CHF with global hypokinesis and ejection fraction of 20% 4 non-Q-wave myocardial infarction 5 history of nonsustained ventricular tachycardia, currently inactive in stable 6 hypernatremia , recovered and the patient on half-normal saline D5 half- normal at the rate of 75 mL an hour 7 dementia 8 diabetes mellitus 9 hyperlipidemia 7 hypertension 8 limited bibasilar pulmonary infiltrate, rule out aspiration, swallow evaluation was done on 05/17/2017, results of which are pending. Recommendation: Recommendation: Continue present supportive care measures, address the issue of swallow evaluation continue aspiration precautions, if the patient failed the swallow evaluation, she may need to have PEG tube placement. We'll continue to follow. Time with Patient: Less than 30
[2017-05-17 16:51] LABS: Glucose,Whole Blood 185 mg/dL (75-99)
--- NOTE | 2017-05-17 20:34 | P.PN ---
Subjective This patient is a 81-year-old female admitted with altered mental status and confusion. She is noted today to have ongoing symptoms of underlying cognitive impairment and dementia. She is able to answer only a few questions appropriately. We will continue close neurological follow-up with this patient during this admission. The patient is laying in bed and is quite confused this evening. She is not sure why she was admitted to the hospital. She was noted to continue due to mistreated evidence of confusion early this morning. As noted she did have an acute non-Q wave myocardial infarction on admission. She is being evaluated and treated by cardiology for this condition. She does have evidence of atrial fibrillation but is not a candidate for long-term anticoagulation due to her multiple risk of fall. Overall the patient seems to be doing about the same today. She does have evidence of underlying dementia as well. We will continue current neurological evaluation and monitoring of this patient. Her overall prognosis at this time remains very guarded. Her speech is fluent with no evidence of any aphasia. We will continue close neurological workup for this patient with altered mental status. She does have history of underlying dementia. According to her she was diagnosed only recently after she had failed a memory test by her primary care physician. We have explained to the that dementia does not develop over a matter of weeks or months but usually takes years. Currently she was transferred to the intensive care unit this evening as she had developed evidence of SVT. Cardiology has started her on a Cardizem drip as well as amiodarone drip. She was transferred to the ICU this evening. She remains obtunded and lethargic. She does not open her eyes. Her last computed tomography scan of the brain was completed on 05/07/2017 and failed to reveal any acute changes. We will obtain a follow-up computed tomography scan of the brain today. She is unable to have an MRI of the brain that she has a pacemaker. Patient underwent computed tomography scan of the brain today. CAT scan reveals evidence of cerebral atrophy. There was no acute intracranial abnormality. 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 The patient remains obtunded in the ICU. She is still not opening her eyes according to the ICU nursing staff. She remains lethargic but moving all extremities. We have discussed in detail with the son yesterday that sudden decline in her potential for dementia would not explain her current findings. We have recommended to consider undergoing lumbar puncture for this patient to rule out any possibility of encephalitis and /or meningitis. She has remained afebrile in the ICU setting. We have obtained consent for lumbar puncture today from the son. We will arrange for LP to be done today for further evaluation. We did attempt to do a lumbar puncture at her bedside in the ICU today. Due to her agitation and movement the LP was unsuccessful. Lumbar puncture was completed yesterday by anesthesia. As noted her initial spinal fluid results are negative for any evidence of meningitis at this time. We will await the final results of the spinal fluid analysis. Spinal fluid analysis orders were given to the ICU nurse. Overall the patient does show improvement in her level of consciousness as compared to yesterday. She is more talkative today. We will complete evaluation with the spinal fluid analysis hopefully to be completed tomorrow. Anesthesia was consulted yesterday and was able to complete a lumbar puncture this morning. Preliminary results indicate no evidence of any meningitis based on Gram stain results. We will await other spinal fluid results to return from the laboratory. According to the nursing staff she is showing slow improvement in her overall cognitive function and is able to answer a few questions. At times she does give appropriate answers to questions. She does seem to have a diffuse metabolic encephalopathy at this time. As noted her spinal fluid results have been collected and we are awaiting final results to return from the laboratory. Gram stain was negative for any organisms. Blood cultures are negative at 72 hours. CSF cultures are still pending today. The patient is much more awake today. She does have a sitter at bedside. She does seem to be more appropriate and is more talkative as compared to initial evaluation. Her chest x-ray remains relatively stable. Pulmonary medicine is monitoring her condition closely. She does have left lower lobe atelectasis which is persistent and suggesting possibility of underlying pneumonia. Her findings are still very much consistent with a diffuse metabolic encephalopathy. Her overall prognosis at this time remains guarded. We will continue close neurological follow-up with this patient in the intensive care unit. Objective - Vital Signs Vital signs: Vital Signs Temp 97.7 F 05/17/17 04:00 Pulse 106 H 05/17/17 16:00 Resp 16 05/17/17 16:00 BP 114/72 05/17/17 16:00 Pulse Ox 98 05/17/17 16:00 Intake & Output 05/16/17 05/17/17 05/17/17 18:59 06:59 18:59 Intake Total 675 900 650 Output Total 785 1150 650 Balance -110 -250 0 Weight 42.8 kg 42.8 kg Intake: IV 675 900 600 Dextrose 5%-0.45% NaCl 1, 675 900 600 000 ml @ 75 mls/hr IV . [id number] [facility] Rx#:[id number] Oral 50 Output: Urine 785 1150 650 Uretheral (Albarran) 1150 Other: Voiding Method Indwelling Catheter Indwelling Catheter Indwelling Catheter # Voids 0 0 - Exam Physical examination: PHYSICAL EXAMINATION: Patient is resting comfortably in bed. VITAL SIGNS: Blood pressure is [114/72]. Heart rate is [106]. Respiration is [16 ]. Temperature is [97.7]. HEENT: Head is atraumatic, neck is supple, there were no carotid bruits. CHEST: Lungs are clear to auscultation and percussion. CARDIAC: S1, S2 normal rate and rhythm. There is no murmur. ABDOMEN: Soft and nontender. Bowel sounds are present. EXTREMITIES: There is no pedal edema. Peripheral pulses are present. Neurological examination: Patient is awake alert and oriented 2. Her speech is slow but fluent. Her memory and intellectual functions are impaired. The patient is not opening her eyes during examination in the ICU. She is not combative but seems to be very restless. She has no evidence of nuchal rigidity or meningismus on examination. Her remaining neurological examination is unchanged from yesterday. Patient does seem to be more awake and alert today. She does have a sitter at bedside. She does show some improvement in her overall status since transfer out of the ICU. - Labs CBC & Chem 7: 05/17/17 05:58 05/17/17 05:58 Labs: Abnormal Lab Results - Last 24 Hours (Table) 05/16/17 05/17/17 05/17/17 Range/Units 23:56 05:57 05:58 WBC 15.2 H (3.8-10.6) k/uL Neutrophils # 12.6 H (1.3-7.7) k/uL Chloride (98-107) mmol/L Glucose (74-99) mg/dL POC Glucose (mg/dL) 147 H 135 H (75-99) mg/dL 05/17/17 05/17/17 05/17/17 Range/Units 05:58 11:46 16:40 WBC (3.8-10.6) k/uL Neutrophils # (1.3-7.7) k/uL Chloride 108 H (98-107) mmol/L Glucose 143 H (74-99) mg/dL POC Glucose (mg/dL) 148 H 185 H (75-99) mg/dL Microbiology - Last 24 Hours (Table) 05/13/17 06:46 Blood Culture - Preliminary Blood No Growth after 96 hours 05/15/17 10:55 CSF Gram Stain - Preliminary Cerebral Spinal Fluid CSF Culture - Preliminary Assessment and Plan (1) Acute encephalopathy Status: Acute Code(s): G93.40 - ENCEPHALOPATHY, UNSPECIFIED (2) Dementia Status: Acute Code(s): F03.90 - UNSPECIFIED DEMENTIA WITHOUT BEHAVIORAL DISTURBANCE (3) NSTEMI (non-ST elevated myocardial infarction) Status: Acute Code(s): I21.4 - NON-ST ELEVATION (NSTEMI) MYOCARDIAL INFARCTION (4) Near syncope Status: Acute Code(s): R55 - SYNCOPE AND COLLAPSE Plan: This patient is a 81-year-old female who was initially admitted to Hospital with symptoms of chest pain and altered mental status. Patient continued to show evidence of worsening mental status changes since her admission to the hospital. She was recently being diagnosed and worked up for underlying dementia. Patient was seen by cardiology and she was diagnosed as having an acute non-ST segment elevation myocardial infarction. She also has a severely impaired LV function with an ejection fraction of less than 20% on echocardiogram study. She also has chronic atrial fibrillation. She is unable to go for MRI she also has a pacemaker. She has remained quite confused. She underwent a repeat computed tomography scan of the brain today the results of which are noted above. CAT scan fails to reveal any evidence of acute stroke or hemorrhage. There is evidence of an old left insular infarct. Patient remains somewhat obtunded with no clear evidence of her underlying etiology for severe encephalopathy. We did discuss her findings in detail with the son yesterday in the ICU. We have explained that her dementia would not worsen significantly in a period of a few weeks. We have recommended today for the patient to be considered for lumbar puncture for further evaluation to rule out possibility of encephalitis and/or meningitis. The son was contacted today for consent to proceed with LP and this was given to us over the phone. The patient does remain afebrile. She is still not opening her eyes very much since reevaluation yesterday. She does have evidence of underlying moderate to severe encephalopathy based on her recent EEG. We will continue close neurological follow-up of this patient in the intensive care unit. As noted we would like to proceed with lumbar puncture to rule out any other possible etiologies for her acute mental status changes. Case was discussed today with Dr. Viera. He is in full agreement to proceed with LP for this patient. We did attempt a lumbar puncture this evening at the patient's bedside in the ICU. Due to her movement and agitation we were unable to successfully obtain spinal fluid. We did consult anesthesia yesterday and they were able to complete a lumbar puncture and spinal fluid has been sent for CSF analysis. Her initial spinal fluid was negative on Gram stain testing for any organisms. A full array of testing is still pending from the laboratory. She remains afebrile. We did discuss today the reasoning for lumbar puncture with the patient's son who was at bedside. He has given consent. Patient was able to undergo a lumbar puncture by anesthesia yesterday. Preliminary results of the spinal fluid indicate no evidence for meningitis based on the CSF results. An array of other tests are still pending and we will need to await those final reports. Check with the laboratory today reveals that the HSV and West Nile virus results are still pending today. Patient does show slight improvement in her overall mental status today. She is more engaging and is trying to say sentences in a concrete manner. She remains afebrile today. She does have a sitter at bedside. She has been cooperative and not severely agitated as a few days ago. Patient does have a sitter at bedside and apparently he has been relatively cooperative earlier today. She continues to demonstrate evidence of a diffuse encephalopathy which is slowly improving. Her overall prognosis at this time remains guarded. Case was discussed today with Dr. Viera and and he was updated on her overall neurological status. We will update the son when he is available at bedside to discuss her overall condition. We will continue close neurological follow-up of this patient on the selective care floor today. She does have a sitter at bedside. This should continue. We will continue close neurological follow-up for this patient whose overall prognosis at this time remains guarded.
[2017-05-17] MEDS: INSULIN GLARGINE 100 UNIT/ML 10 ML VIAL SQ SCH (20:46)
[2017-05-17] MEDS: ATORVASTATIN 20 MG TAB PO SCH (20:50)
[2017-05-17 21:03] LABS: Glucose,Whole Blood 165 mg/dL (75-99)
[2017-05-17 23:55] LABS: Glucose,Whole Blood 158 mg/dL (75-99)
[2017-05-18 06:08] LABS: Glucose,Whole Blood 167 mg/dL (75-99)
[2017-05-18 06:15] LABS: Basophils % (A) 0 %; CH 31.2; CHCM 33.2; Eosinophils # (A) 0.2 k/uL (0-0.7); Eosinophils % (A) 2 %; HCT 37.5 % (34.0-46.0); HDW 2.38; Luc % (Auto) 3; Lymphocytes # (A) 1.1 k/uL (1.0-4.8); Lymphocytes % (A) 9 %; MCH 30.2 pg (25.0-35.0); MCV 94.5 fL (80.0-100.0); Mean Platelet Volume 8.3; Monocytes # (A) 0.8 k/uL (0-1.0); Monocytes % (A) 7 %; Neutrophils # (A) 9.4 k/uL (1.3-7.7); Neutrophils % (A) 79 %; RBC 3.97 m/uL (3.80-5.40); RDW 13.4 % (11.5-15.5); WBC 11.9 k/uL (3.8-10.6); WBC (Perox) 11.76
[2017-05-18] MEDS: NITROGLYCERIN OINT 1 INCH/GM PACKET TOPICAL SCH ×3 (06:15→16:58)
[2017-05-18] MEDS: INSULIN LISPRO (humaLOG) 300 UNIT/3 ML VIAL SQ SCH ×3 (06:16→16:57)
[2017-05-18 06:25] LABS: Anion Gap 8 mmol/L; Blood Urea Nitrogen 9 mg/dL (7-17); Calcium 8.6 mg/dL (8.4-10.2); Carbon Dioxide 23 mmol/L (22-30); Chloride 107 mmol/L (98-107); Glucose 157 mg/dL (74-99); Magnesium 1.7 mg/dL (1.6-2.3); Non-African American GFR(MDRD) >60 (>60 ml/min/1.73 sqM); Potassium 3.9 mmol/L (3.5-5.1); Sodium 138 mmol/L (137-145)
[2017-05-18] MEDS ORDERED: ISOSORBIDE MONONITRATE ER 30 MG TAB.ER.24H PO SCH (09:00)
[2017-05-18] MEDS: ASPIRIN 300 MG SUPP RECTAL SCH (09:20)
[2017-05-18] MEDS: ENOXAPARIN 40 MG/0.4 ML SYRINGE SQ SCH (09:20)
[2017-05-18] MEDS: METOPROLOL TARTRATE 5 MG/5 ML VIAL IVP SCH (09:22)
--- NOTE | 2017-05-18 10:23 | P.PN ---
Subjective Patient is doing a lot better today. She is awake and alert. She is answering simple yes or no questions. She is oriented to hersel and to place.f Objective - Vital Signs Vital signs: Vital Signs Temp 97.2 F L 05/18/17 08:00 Pulse 97 05/18/17 08:00 Resp 16 05/18/17 08:00 BP 104/58 05/18/17 08:00 Pulse Ox 97 05/18/17 08:00 Intake & Output 05/17/17 05/18/17 05/18/17 18:59 06:59 18:59 Intake Total 650 375 Output Total 650 800 Balance 0 -425 Weight 42.8 kg 42.8 kg Intake: IV 600 375 Dextrose 5%-0.45% NaCl 1, 600 375 000 ml @ 75 mls/hr IV . [id number] [facility] Rx#:[id number] Oral 50 Output: Urine 650 800 Other: Voiding Method Indwelling Catheter Indwelling Catheter # Voids 0 - Exam General: The patient is awake and alert, in no distress Eye: there is normal conjunctiva bilaterally. Neck: The neck is supple, there is no JVD. Cardiovascular: Normal S1-S2, no S3-S4, no murmurs. Respiratory: Lungs clear to auscultation bilaterally Gastrointestinal: Abdomen is soft, nontender Musculoskeletal: There is no pedal edema. Neurological:. Speech is normal. Skin: Skin is warm and dry - Labs CBC & Chem 7: 05/18/17 05:52 05/18/17 05:48 Labs: Abnormal Lab Results - Last 24 Hours (Table) 05/17/17 05/17/17 05/17/17 Range/Units 05:58 05:58 11:46 WBC 15.2 H (3.8-10.6) k/uL Neutrophils # 12.6 H (1.3-7.7) k/uL Chloride 108 H (98-107) mmol/L Glucose 143 H (74-99) mg/dL POC Glucose (mg/dL) 148 H (75-99) mg/dL 05/17/17 05/17/17 05/17/17 Range/Units 16:40 20:49 23:43 WBC (3.8-10.6) k/uL Neutrophils # (1.3-7.7) k/uL Chloride (98-107) mmol/L Glucose (74-99) mg/dL POC Glucose (mg/dL) 185 H 165 H 158 H (75-99) mg/dL 05/18/17 05/18/17 05/18/17 Range/Units 05:48 05:52 05:59 WBC 11.9 H (3.8-10.6) k/uL Neutrophils # 9.4 H (1.3-7.7) k/uL Chloride (98-107) mmol/L Glucose 157 H (74-99) mg/dL POC Glucose (mg/dL) 167 H (75-99) mg/dL Microbiology - Last 24 Hours (Table) 05/13/17 06:46 Blood Culture - Preliminary Blood No Growth after 120 hours 05/15/17 10:55 CSF Gram Stain - Preliminary Cerebral Spinal Fluid CSF Culture - Preliminary Assessment and Plan Plan: 1. Acute toxo metabolic encephalopathy 2. Hypovolemic hypernatremia, improving 3. Severe dehydration 4. Starvation ketosis with elevated lactic acid, resolved 5. Acute Non-Q-wave myocardial infarction present on admission: She has been evaluated by cardiology the recommending medical management. 6. supraventricular tachycardia seen and evaluated by cardiology. Heart rate well controlled. Continue metoprolol 7. history of Atrial fibrillation with rapid ventricular response: now receiving IV metoprolol Patient not a good candidate for anticoagulation because of her risks of multiple falls 8. Hyperlipidemia continue statin 9. Acute on chronic systolic CHF: last Echo shows an EF of less than 20%. 10. Diabetes mellitus type 2: Hemoglobin A1c of 6.9. Discontinue Lantus a day as IV D5 half-normal saline will be discontinued. May consider adding metformin 500 mg twice daily at the time of discharge 11. Dementia/underlying cognitive impairment 12. Essential hypertension 13. Generalized anxiety disorder Today, I reviewed her medication list and lab work results. Continue supportive care. Patient passed swallow study yesterday. May transition to oral medication afterward. Avoid benzodiazepine. Patient is eating 25-50% of her meals. Encouraged by mouth intake. PT/OT evaluation. Discontinue central line today and place peripheral IV. Get the patient out of bed. Plan to discharge to ECF within the next day or 2. Switch metoprolol to oral metoprolol titrate 25 mg twice daily No family members at bedside to be updated.
--- NOTE | 2017-05-18 11:30 | P.PN ---
Subjective Principal diagnosis: Acute non-ST segment elevation myocardial infarction and severely impaired LV function An 81-year-old female patient with known history of dementia who was admitted to the hospital because of chest pain. Her son who is the primary caregiver noted that the patient was complaining of chest discomfort. The patient was brought into the emergency department because of chest pain. A cardiology evaluation was done and the patient was diagnosed having a acute non-ST segment elevation myocardial infarction. She has a severely impaired LV function with an ejection fraction of less than 20% based on echocardiogram study. She also has a chronic atrial fibrillation. During the same hospitalization the patient was found to be quite confused and she continued to have altered mental status and progressively became completely unresponsive. The patient was brought in to the intensive care yesterday as her cardiac rhythm went tachycardic and the patient was brought in for a potential problem of an SVT. I do not see was given during a emergency situation and the patient did not respond an underlying rhythm was reviewed and seems that the patient was in a flutter rhythm. I think that the patient was in a combination of tachycardia in the setting of atrial fibrillation/flutter. In the ICU, the patient was given Cardizem drip and beta blockers. The heart rate slowed down and currently she is back to normal sinus. She remained hemodynamically stable throughout this event. Neurologically however the patient remains unresponsive. Neurology is following the patient had psychiatry is following the patient. At one point she was thought to be catatonic and she was given a trial of Ativan which again failed to improve her condition. CAT scan of the brain has been done on admission and a repeat CAT scan of the brain was done this afternoon and it showed cerebral atrophy without any acute intracranial abnormalities. No neck stiffness. No fever. 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 The EEG also showed severe widespread diffuse disturbance of cerebral function without any evidence of focal lateralized or epileptiform abnormalities. No seizure activity has been noted. Also, the patient was found to be profoundly hyponatremic. The sodium level was around 161 and she was started on D5 water initially at 100 mL which I increased up to 150 and earlier this morning her sodium level came down to 150. She also had a component of acute kidney injury secondary to intravascular volume depletion and this is also improving. A triple lumen catheter inserted knowing that the patient had a poor IV access. A Dobbhoff catheter was also inserted for enteral feeding. The patient was seen again today 05/14/2017 in follow-up in the intensive care unit. She continues to wax and wane in regards to her mental status. She does seem a little more alert today as compared to yesterday. She continues with a loose nonproductive cough. Chest x-ray reveals some mild central venous congestion without suspicious focal infiltrates. Her heart rate is better controlled. The diltiazem drip was discontinued. She remains on amiodarone at 0.5 mg per hour. Currently in sinus rhythm. She's been hemodynamically stable. Not on any pressors. She is afebrile. She is being followed by neurology who was planning a lumbar puncture today. Her INR was corrected to 1.4 via vitamin K and fresh frozen plasma. On 05/15/2017 the patient is being seen in follow-up in intensive care unit. I would say she is gradually becoming more awake. On today's evaluation she was having some limited conversation with the nurses. I felt that she was still lethargic and confused. Obviously her mentation is waxing and waning however she seems to be more awake and she opens her eyes spontaneously and mumbles and says few words. She pulled out her Dobbhoff catheter however she did not aspirate. The catheter will be reinserted for feeding purposes of medication. The patient was given fresh frozen plasma and vitamin K and her coagulopathy was reversed. The lumbar puncture was attempted by neurology yesterday evening without success as the patient had increased movement. Anesthesia will be consulted for the same. Her white cell count is at 18.2. Chest x-ray from today shows cardiomegaly with a new patchy bibasilar pulmonary infiltrates. The patient remains in sinus rhythm with occasional. Rate is controlled for now. Hemodynamically stable. Producing adequate amount of urine output. No fever or chills. On 05/16/2017 I'm seeing this patient in follow-up in the intensive care unit. The patient is opening her eyes spontaneously. She is trying to talk over his speech is garbled. At times she gets a bit agitated. I tried to give her some applesauce which she was able to swallow. A Dobbhoff catheter his been taken off. Electrodes are within normal limits. Lumbar puncture was completed and the CSF findings preliminary findings are stable and within normal limits and I' m awaiting for HSV by PCR. Chest x-ray findings are also stable. Electrolytes have improved and his sodium level has normalized. She is hemodynamically stable. On 05/17/2017, I'm seeing this patient on follow-up, she just came back from her swallow evaluation, results of which are pending. Patient remains confused, speech is garbled, final report on the lumbar puncture is pending, chest x-ray has been relatively stable. Probable left lower lobe atelectasis persists, difficult to rule out underlying pneumonia but felt to be less likely. WBC count is 15.2 hemoglobin is normal basic metabolic profile is normal. Reevaluated today on 05/18/2017, patient seems to be doing well, she is actually much more awake, alert, answering simple questions, denies any specific complaints. Labs were all reviewed. Her swallow evaluation from yesterday showed no aspiration or penetration. Patient is being fed easily without any difficulty today. Objective - Vital Signs Vital signs: Vital Signs Temp 97.2 F L 05/18/17 08:00 Pulse 97 05/18/17 08:00 Resp 16 05/18/17 08:00 BP 104/58 05/18/17 08:00 Pulse Ox 97 05/18/17 08:00 Intake & Output 05/17/17 05/18/17 05/18/17 18:59 06:59 18:59 Intake Total 650 375 Output Total 650 800 Balance 0 -425 Weight 42.8 kg 42.8 kg Intake: IV 600 375 Dextrose 5%-0.45% NaCl 1, 600 375 000 ml @ 75 mls/hr IV . [id number] [facility] Rx#:[id number] Oral 50 Output: Urine 650 800 Other: Voiding Method Indwelling Catheter Indwelling Catheter Indwelling Catheter # Voids 0 - Exam Physical Exam: Revealed 81-year-old female in no distress. HEENT:[Neck is supple.] [No neck masses.] [No thyromegaly.] [No JVD.] Chest: [Clear throughout, no crackles, no rhonchi, no wheezes.] Cardiac Exam: [Normal S1 and S2, no S3 gallop, no murmur.] Abdomen: [Soft, nontender, no megaly, no rebound, no guarding, normal bowel sounds.] Extremities: [No clubbing, no edema, no cyanosis.] Neurological Exam: [No focal neurologic deficit.] - Labs CBC & Chem 7: 05/18/17 05:52 05/18/17 05:48 Labs: Abnormal Lab Results - Last 24 Hours (Table) 05/17/17 05/17/17 05/17/17 Range/Units 05:58 05:58 11:46 WBC 15.2 H (3.8-10.6) k/uL Neutrophils # 12.6 H (1.3-7.7) k/uL Chloride 108 H (98-107) mmol/L Glucose 143 H (74-99) mg/dL POC Glucose (mg/dL) 148 H (75-99) mg/dL 05/17/17 05/17/17 05/17/17 Range/Units 16:40 20:49 23:43 WBC (3.8-10.6) k/uL Neutrophils # (1.3-7.7) k/uL Chloride (98-107) mmol/L Glucose (74-99) mg/dL POC Glucose (mg/dL) 185 H 165 H 158 H (75-99) mg/dL 05/18/17 05/18/17 05/18/17 Range/Units 05:48 05:52 05:59 WBC 11.9 H (3.8-10.6) k/uL Neutrophils # 9.4 H (1.3-7.7) k/uL Chloride (98-107) mmol/L Glucose 157 H (74-99) mg/dL POC Glucose (mg/dL) 167 H (75-99) mg/dL Microbiology - Last 24 Hours (Table) 05/13/17 06:46 Blood Culture - Preliminary Blood No Growth after 120 hours 05/15/17 10:55 CSF Gram Stain - Preliminary Cerebral Spinal Fluid CSF Culture - Preliminary Assessment and Plan Plan: 1 altered mentation with significant diminished level of consciousness. Likely improved as the patient's sodium level is normalized. The patient is much more alert and awake. She still has an underlying dementia. Lumbar puncture was completed and there is no acute abnormalities based on the findings. Awaiting HSV by PCR. 2 atrial fibrillation with rapid ventricular response, treated in the current rhythm is sinus 3 CHF with global hypokinesis and ejection fraction of 20% 4 non-Q-wave myocardial infarction 5 history of nonsustained ventricular tachycardia, currently inactive in stable 6 hypernatremia , recovered and the patient on half-normal saline D5 half- normal at the rate of 75 mL an hour 7 dementia 8 diabetes mellitus 9 hyperlipidemia 7 hypertension 8 limited bibasilar pulmonary infiltrate, rule out aspiration, swallow evaluation was done on 05/17/2017, results came back unremarkable. Recommendation: Continue present supportive care measures, will continue to follow. Time with Patient: Less than 30
[2017-05-18 12:14] LABS: Glucose,Whole Blood 145 mg/dL (75-99)
[2017-05-18 16:46] LABS: Glucose,Whole Blood 109 mg/dL (75-99)
[2017-05-18] MEDS: DEXTROSE 5%-0.45% NACL 1,000 ML IV SCH (17:01)
[2017-05-18] MEDS: ATORVASTATIN 20 MG TAB PO SCH (19:40)
[2017-05-18] MEDS: METOPROLOL TARTRATE 25 MG TAB PO SCH (19:40)
[2017-05-18 21:16] LABS: Glucose,Whole Blood 106 mg/dL (75-99)
--- NOTE | 2017-05-18 21:45 | P.PN ---
Subjective This patient is a 81-year-old female admitted with altered mental status and confusion. She is noted today to have ongoing symptoms of underlying cognitive impairment and dementia. She is able to answer only a few questions appropriately. We will continue close neurological follow-up with this patient during this admission. The patient is laying in bed and is quite confused this evening. She is not sure why she was admitted to the hospital. She was noted to continue due to mistreated evidence of confusion early this morning. As noted she did have an acute non-Q wave myocardial infarction on admission. She is being evaluated and treated by cardiology for this condition. She does have evidence of atrial fibrillation but is not a candidate for long-term anticoagulation due to her multiple risk of fall. Overall the patient seems to be doing about the same today. She does have evidence of underlying dementia as well. We will continue current neurological evaluation and monitoring of this patient. Her overall prognosis at this time remains very guarded. Her speech is fluent with no evidence of any aphasia. We will continue close neurological workup for this patient with altered mental status. She does have history of underlying dementia. According to her she was diagnosed only recently after she had failed a memory test by her primary care physician. We have explained to the that dementia does not develop over a matter of weeks or months but usually takes years. She was transferred to the intensive care unit as she had developed evidence of SVT. Cardiology has started her on a Cardizem drip as well as amiodarone drip. She remained obtunded and lethargic in the ICU. She does not open her eyes. Her last computed tomography scan of the brain was completed on 05/07/2017 and failed to reveal any acute changes. We did obtain a follow-up computed tomography scan of the brain that was also negative of any acute findings. She is unable to have an MRI of the brain that she has a pacemaker. The patient was transferred out of the ICU to [facility]. She does have a sitter at bedside. She continues to do well in terms of her overall mental status. There has been a slow but steady improvement in her level of cognition. She seems to be less confused and agitated today. She is following simple commands. She is much more awake and alert and is able to answer simple questions. She did undergo a swallow evaluation yesterday which she did pass as there was no evidence of aspiration or penetration. Her spinal fluid results came back negative for HSV 1 and HSV 2 by PCR. Her clinical and neurological findings at this time are consistent with a diffuse toxic metabolic encephalopathy which is slowly improving. She is continuing to show some evidence of improvement in terms of her overall mental status. We will continue close neurological follow-up of this patient during this admission. Objective - Vital Signs Vital signs: Vital Signs Temp 97.2 F L 05/18/17 08:00 Pulse 91 05/18/17 12:00 Resp 16 05/18/17 14:29 BP 106/60 05/18/17 12:00 Pulse Ox 97 05/18/17 08:00 Intake & Output 05/17/17 05/18/17 05/18/17 18:59 06:59 18:59 Intake Total 650 375 660 Output Total 650 800 Balance 0 -425 660 Weight 42.8 kg 42.8 kg Intake: IV 600 375 600 Dextrose 5%-0.45% NaCl 1, 600 375 600 000 ml @ 75 mls/hr IV . [id number] [facility] Rx#:[id number] Oral 50 60 Output: Urine 650 800 Other: Voiding Method Indwelling Catheter Indwelling Catheter Indwelling Catheter # Voids 0 - Exam Physical examination: PHYSICAL EXAMINATION: Patient is resting comfortably in bed. VITAL SIGNS: Blood pressure is [104/58]. Heart rate is [97]. Respiration is [16] . Temperature is [97.2]. HEENT: Head is atraumatic, neck is supple, there were no carotid bruits. CHEST: Lungs are clear to auscultation and percussion. CARDIAC: S1, S2 normal rate and rhythm. There is no murmur. ABDOMEN: Soft and nontender. Bowel sounds are present. EXTREMITIES: There is no pedal edema. Peripheral pulses are present. Neurological examination: Patient is awake alert and oriented 2. Her speech is slow but fluent. Her memory and intellectual functions are impaired. The patient is not opening her eyes during examination in the ICU. She is not combative but seems to be very restless. She has no evidence of nuchal rigidity or meningismus on examination. Her remaining neurological examination is unchanged from yesterday. Patient does seem to be more awake and alert today. She does have a sitter at bedside. She does show some improvement in her overall status since transfer out of the ICU. - Labs CBC & Chem 7: 05/18/17 05:52 05/18/17 05:48 Labs: Abnormal Lab Results - Last 24 Hours (Table) 05/17/17 05/17/17 05/18/17 Range/Units 20:49 23:43 05:48 WBC (3.8-10.6) k/uL Neutrophils # (1.3-7.7) k/uL Glucose 157 H (74-99) mg/dL POC Glucose (mg/dL) 165 H 158 H (75-99) mg/dL 05/18/17 05/18/17 05/18/17 Range/Units 05:52 05:59 11:44 WBC 11.9 H (3.8-10.6) k/uL Neutrophils # 9.4 H (1.3-7.7) k/uL Glucose (74-99) mg/dL POC Glucose (mg/dL) 167 H 145 H (75-99) mg/dL 05/18/17 Range/Units 16:41 WBC (3.8-10.6) k/uL Neutrophils # (1.3-7.7) k/uL Glucose (74-99) mg/dL POC Glucose (mg/dL) 109 H (75-99) mg/dL Microbiology - Last 24 Hours (Table) 05/13/17 06:46 Blood Culture - Preliminary Blood No Growth after 120 hours 05/15/17 10:55 CSF Gram Stain - Preliminary Cerebral Spinal Fluid CSF Culture - Preliminary Assessment and Plan (1) Acute encephalopathy Status: Acute Code(s): G93.40 - ENCEPHALOPATHY, UNSPECIFIED (2) Dementia Status: Acute Code(s): F03.90 - UNSPECIFIED DEMENTIA WITHOUT BEHAVIORAL DISTURBANCE (3) NSTEMI (non-ST elevated myocardial infarction) Status: Acute Code(s): I21.4 - NON-ST ELEVATION (NSTEMI) MYOCARDIAL INFARCTION (4) Near syncope Status: Acute Code(s): R55 - SYNCOPE AND COLLAPSE Plan: This patient is a 81-year-old female who was initially admitted to Hospital with symptoms of chest pain and altered mental status. Patient continued to show evidence of worsening mental status changes since her admission to the hospital. She was recently being diagnosed and worked up for underlying dementia. Patient was seen by cardiology and she was diagnosed as having an acute non-ST segment elevation myocardial infarction. She also has a severely impaired LV function with an ejection fraction of less than 20% on echocardiogram study. She also has chronic atrial fibrillation. She is unable to go for MRI she also has a pacemaker. She has remained quite confused. She underwent a repeat computed tomography scan of the brain today the results of which are noted above. CAT scan fails to reveal any evidence of acute stroke or hemorrhage. There is evidence of an old left insular infarct. Patient remains somewhat obtunded with no clear evidence of her underlying etiology for severe encephalopathy. We did discuss her findings in detail with the son yesterday in the ICU. We have explained that her dementia would not worsen significantly in a period of a few weeks. We have recommended today for the patient to be considered for lumbar puncture for further evaluation to rule out possibility of encephalitis and/or meningitis. The son was contacted today for consent to proceed with LP and this was given to us over the phone. The patient does remain afebrile. She is still not opening her eyes very much since reevaluation yesterday. She does have evidence of underlying moderate to severe encephalopathy based on her recent EEG. We will continue close neurological follow-up of this patient in the intensive care unit. As noted we would like to proceed with lumbar puncture to rule out any other possible etiologies for her acute mental status changes. Case was discussed today with Dr. Viera. He is in full agreement to proceed with LP for this patient. We did attempt a lumbar puncture this evening at the patient's bedside in the ICU. Due to her movement and agitation we were unable to successfully obtain spinal fluid. We did consult anesthesia yesterday and they were able to complete a lumbar puncture and spinal fluid has been sent for CSF analysis. Her initial spinal fluid was negative on Gram stain testing for any organisms. A full array of testing is still pending from the laboratory. She remains afebrile. We did discuss today the reasoning for lumbar puncture with the patient's son who was at bedside. He has given consent. Patient was able to undergo a lumbar puncture by anesthesia yesterday. Preliminary results of the spinal fluid indicate no evidence for meningitis based on the CSF results. An array of other tests are still pending and we will need to await those final reports. Check with the laboratory today reveals that the HSV and West Nile virus results are still pending today. Patient does show slight improvement in her overall mental status today. She continues to have a sitter at bedside. Her spinal fluid results did come back negative for HSV 1 and HSV 2 by PCR. She is continuing to show improvement in her overall cognitive function. Her clinical findings are consistent with a toxic metabolic encephalopathy that is slowly improving. She is being considered for discharge to extended care facility. We will continue close neurological follow-up of this patient during this admission. Her overall prognosis at this time remains guarded.
[2017-05-19] MEDS: NITROGLYCERIN OINT 1 INCH/GM PACKET TOPICAL SCH ×4 (01:01→17:12)
[2017-05-19] MEDS: INSULIN LISPRO (humaLOG) 300 UNIT/3 ML VIAL SQ SCH ×4 (01:01→17:12)
[2017-05-19 01:11] LABS: Glucose,Whole Blood 136 mg/dL (75-99)
[2017-05-19 06:21] LABS: Glucose,Whole Blood 135 mg/dL (75-99)
[2017-05-19 06:40] LABS: Basophils % (A) 0 %; CH 30.4; CHCM 33.6; Eosinophils # (A) 0.1 k/uL (0-0.7); Eosinophils % (A) 1 %; HCT 37.6 % (34.0-46.0); HDW 2.47; HGB 12.7 gm/dL (11.4-16.0); Luc # (Auto) 0.28; Luc % (Auto) 3; Lymphocytes # (A) 1.7 k/uL (1.0-4.8); Lymphocytes % (A) 15 %; MCH 30.8 pg (25.0-35.0); MCHC 33.8 g/dL (31.0-37.0); Mean Platelet Volume 9.2; Monocytes # (A) 0.9 k/uL (0-1.0); Monocytes % (A) 8 %; Neutrophils # (A) 7.9 k/uL (1.3-7.7); Neutrophils % (A) 72 %; RBC 4.14 m/uL (3.80-5.40); RDW 12.8 % (11.5-15.5); WBC 10.9 k/uL (3.8-10.6); WBC (Perox) 11.07
[2017-05-19 06:57] LABS: Anion Gap 10 mmol/L; Calcium 9.1 mg/dL (8.4-10.2); Carbon Dioxide 20 mmol/L (22-30); Chloride 108 mmol/L (98-107); Glucose 110 mg/dL (74-99); Non-African American GFR(MDRD) >60 (>60 ml/min/1.73 sqM); Sodium 138 mmol/L (137-145)
[2017-05-19 07:24] LABS: Blood Urea Nitrogen 12 mg/dL (7-17); Potassium 4.1 mmol/L (3.5-5.1)
[2017-05-19] MEDS: ASPIRIN 300 MG SUPP RECTAL SCH (08:46)
[2017-05-19] MEDS: ENOXAPARIN 40 MG/0.4 ML SYRINGE SQ SCH (08:46)
[2017-05-19] MEDS: METOPROLOL TARTRATE 25 MG TAB PO SCH ×2 (08:46→21:36)
--- NOTE | 2017-05-19 10:20 | P.PN ---
Subjective This is a 81-year-old female with a known past medical history of dementia, hypertension, hyperlipidemia, chronic vertigo, anxiety, and diabetes mellitus. Patient was brought into the emergency room by her son for chest discomfort. ER reports that the patient told her son that she was having chest pain 3 times. She was found to have elevated troponin at 0.988 started on IV heparin and diagnosed with a non-ST elevated myocardial infarction. EKG had shown a general accelerated junctional rhythm with PVCs. She's been admitted to the sixth floor cardiology has been consulted. Chest x-ray showed signs of congestive heart failure. 2016 patient is alert and orientated to her name. Has no complaints of pain. Albarran catheter will removed today and monitor for urinary retention. Catheter was inserted and the ICU. Objective - Vital Signs Vital signs: Vital Signs Temp 96.8 F L 05/19/17 08:00 Pulse 92 05/19/17 08:00 Resp 18 05/19/17 08:00 BP 101/79 05/19/17 08:00 Pulse Ox 95 05/19/17 08:00 Intake & Output 05/18/17 05/19/17 05/19/17 18:59 06:59 18:59 Intake Total 690 30 Output Total 450 140 Balance 690 -420 -140 Weight 42.8 kg 55.5 kg Intake: IV 600 Dextrose 5%-0.45% NaCl 1, 600 000 ml @ 75 mls/hr IV . [id number] [facility] Rx#:[id number] Oral 90 30 Output: Urine 450 140 Uretheral (Albarran) 140 Other: Voiding Method Indwelling Catheter Indwelling Catheter Indwelling Catheter # Voids 1 - Exam Head normocephalic Neck supple Lungs clear to auscultation bilaterally no wheezing or crackles Heart regular rate and rhythm S1-S2, no rub or gallop Abdomen is soft nontender nondistended positive bowel sounds no hepatosplenomegaly Extremities no edema Neuro alert and orientated to name - Labs CBC & Chem 7: 05/19/17 05:58 05/19/17 05:58 Labs: Abnormal Lab Results - Last 24 Hours (Table) 05/18/17 05/18/17 05/18/17 Range/Units 11:44 16:41 21:14 WBC (3.8-10.6) k/uL Neutrophils # (1.3-7.7) k/uL Chloride (98-107) mmol/L Carbon Dioxide (22-30) mmol/L Glucose (74-99) mg/dL POC Glucose (mg/dL) 145 H 109 H 106 H (75-99) mg/dL 05/19/17 05/19/17 05/19/17 Range/Units 01:00 05:58 05:58 WBC 10.9 H (3.8-10.6) k/uL Neutrophils # 7.9 H (1.3-7.7) k/uL Chloride 108 H (98-107) mmol/L Carbon Dioxide 20 L (22-30) mmol/L Glucose 110 H (74-99) mg/dL POC Glucose (mg/dL) 136 H (75-99) mg/dL 05/19/17 Range/Units 06:19 WBC (3.8-10.6) k/uL Neutrophils # (1.3-7.7) k/uL Chloride (98-107) mmol/L Carbon Dioxide (22-30) mmol/L Glucose (74-99) mg/dL POC Glucose (mg/dL) 135 H (75-99) mg/dL Microbiology - Last 24 Hours (Table) 05/13/17 06:46 Blood Culture - Final Blood No Growth after 144 hours 05/15/17 10:55 CSF Gram Stain - Preliminary Cerebral Spinal Fluid CSF Culture - Preliminary Assessment and Plan Plan: 1. Acute toxo metabolic encephalopathy 2. Hypovolemic hypernatremia, improved 3. Severe dehydration 4. Starvation ketosis with elevated lactic acid, resolved 5. Acute Non-Q-wave myocardial infarction present on admission: She has been evaluated by cardiology the recommending medical management. 6. supraventricular tachycardia seen and evaluated by cardiology. Heart rate well controlled. Continue metoprolol 7. history of Atrial fibrillation with rapid ventricular response: Continue metoprolol. Patient not a good candidate for anticoagulation because of her risks of multiple falls 8. Hyperlipidemia continue statin 9. Acute on chronic systolic CHF: last Echo shows an EF of less than 20%. 10. Diabetes mellitus type 2: Hemoglobin A1c of 6.9. Discontinue Lantus a day as IV D5 half-normal saline will be discontinued. May consider adding metformin 500 mg twice daily at the time of discharge 11. Dementia/underlying cognitive impairment 12. Essential hypertension 13. Generalized anxiety disorder Patient has passed her swallowing eval completed during this admission. Avoid benzodiazepines and. Anticipate discharge to [facility] tomorrow. I performed an examination of the patient and discussed their management with the physician Bomb [employer] Commander. I have reviewed the Physician Bomb [employer] Commander's notes and agree with the documented findings and plan of care
[2017-05-19 11:35] LABS: Glucose,Whole Blood 147 mg/dL (75-99)
--- NOTE | 2017-05-19 13:23 | P.PN ---
Subjective An 81-year-old female patient with known history of dementia who was admitted to the hospital because of chest pain. Her son who is the primary caregiver noted that the patient was complaining of chest discomfort. The patient was brought into the emergency department because of chest pain. A cardiology evaluation was done and the patient was diagnosed having a acute non-ST segment elevation myocardial infarction. She has a severely impaired LV function with an ejection fraction of less than 20% based on echocardiogram study. She also has a chronic atrial fibrillation. During the same hospitalization the patient was found to be quite confused and she continued to have altered mental status and progressively became completely unresponsive. The patient was brought in to the intensive care yesterday as her cardiac rhythm went tachycardic and the patient was brought in for a potential problem of an SVT. I do not see was given during a emergency situation and the patient did not respond an underlying rhythm was reviewed and seems that the patient was in a flutter rhythm. I think that the patient was in a combination of tachycardia in the setting of atrial fibrillation/flutter. In the ICU, the patient was given Cardizem drip and beta blockers. The heart rate slowed down and currently she is back to normal sinus. She remained hemodynamically stable throughout this event. Neurologically however the patient remains unresponsive. Neurology is following the patient had psychiatry is following the patient. At one point she was thought to be catatonic and she was given a trial of Ativan which again failed to improve her condition. CAT scan of the brain has been done on admission and a repeat CAT scan of the brain was done this afternoon and it showed cerebral atrophy without any acute intracranial abnormalities. No neck stiffness. No fever. 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 The EEG also showed severe widespread diffuse disturbance of cerebral function without any evidence of focal lateralized or epileptiform abnormalities. No seizure activity has been noted. Also, the patient was found to be profoundly hyponatremic. The sodium level was around 161 and she was started on D5 water initially at 100 mL which I increased up to 150 and earlier this morning her sodium level came down to 150. She also had a component of acute kidney injury secondary to intravascular volume depletion and this is also improving. A triple lumen catheter inserted knowing that the patient had a poor IV access. A Dobbhoff catheter was also inserted for enteral feeding. The patient was seen again today 05/14/2017 in follow-up in the intensive care unit. She continues to wax and wane in regards to her mental status. She does seem a little more alert today as compared to yesterday. She continues with a loose nonproductive cough. Chest x-ray reveals some mild central venous congestion without suspicious focal infiltrates. Her heart rate is better controlled. The diltiazem drip was discontinued. She remains on amiodarone at 0.5 mg per hour. Currently in sinus rhythm. She's been hemodynamically stable. Not on any pressors. She is afebrile. She is being followed by neurology who was planning a lumbar puncture today. Her INR was corrected to 1.4 via vitamin K and fresh frozen plasma. On 05/15/2017 the patient is being seen in follow-up in intensive care unit. I would say she is gradually becoming more awake. On today's evaluation she was having some limited conversation with the nurses. I felt that she was still lethargic and confused. Obviously her mentation is waxing and waning however she seems to be more awake and she opens her eyes spontaneously and mumbles and says few words. She pulled out her Dobbhoff catheter however she did not aspirate. The catheter will be reinserted for feeding purposes of medication. The patient was given fresh frozen plasma and vitamin K and her coagulopathy was reversed. The lumbar puncture was attempted by neurology yesterday evening without success as the patient had increased movement. Anesthesia will be consulted for the same. Her white cell count is at 18.2. Chest x-ray from today shows cardiomegaly with a new patchy bibasilar pulmonary infiltrates. The patient remains in sinus rhythm with occasional. Rate is controlled for now. Hemodynamically stable. Producing adequate amount of urine output. No fever or chills. On 05/16/2017 I'm seeing this patient in follow-up in the intensive care unit. The patient is opening her eyes spontaneously. She is trying to talk over his speech is garbled. At times she gets a bit agitated. I tried to give her some applesauce which she was able to swallow. A Dobbhoff catheter his been taken off. Electrodes are within normal limits. Lumbar puncture was completed and the CSF findings preliminary findings are stable and within normal limits and I' m awaiting for HSV by PCR. Chest x-ray findings are also stable. Electrolytes have improved and his sodium level has normalized. She is hemodynamically stable. On 05/17/2017, I'm seeing this patient on follow-up, she just came back from her swallow evaluation, results of which are pending. Patient remains confused, speech is garbled, final report on the lumbar puncture is pending, chest x-ray has been relatively stable. Probable left lower lobe atelectasis persists, difficult to rule out underlying pneumonia but felt to be less likely. WBC count is 15.2 hemoglobin is normal basic metabolic profile is normal. Reevaluated today on 05/18/2017, patient seems to be doing well, she is actually much more awake, alert, answering simple questions, denies any specific complaints. Labs were all reviewed. Her swallow evaluation from yesterday showed no aspiration or penetration. Patient is being fed easily without any difficulty today. The patient was seen again today 05/19/2017 in follow-up on the selective care unit. She is currently resting quite comfortably in bed. She is awake and alert in no acute distress. Her speech remains somewhat garbled. She is maintaining good O2 saturations in the mid 90s on room air. Afebrile. She's been hemodynamically stable. She is currently in sinus rhythm. Objective - Vital Signs Vital signs: Vital Signs Temp 97.0 F L 05/19/17 11:29 Pulse 92 05/19/17 11:29 Resp 18 05/19/17 11:29 BP 105/76 05/19/17 11:29 Pulse Ox 95 05/19/17 08:00 Intake & Output 05/18/17 05/19/17 05/19/17 18:59 06:59 18:59 Intake Total 690 30 Output Total 450 140 Balance 690 -420 -140 Weight 42.8 kg 55.5 kg Intake: IV 600 Dextrose 5%-0.45% NaCl 1, 600 000 ml @ 75 mls/hr IV . [id number] [facility] Rx#:[id number] Oral 90 30 Output: Urine 450 140 Uretheral (Albarran) 140 Other: Voiding Method Indwelling Catheter Indwelling Catheter Indwelling Catheter # Voids 1 - Exam GENERAL EXAM: Alert, comfortable in no apparent distress. HEAD: Normocephalic. EYES: Normal reaction of pupils, equal size. NOSE: Clear with pink turbinates. THROAT: No erythema or exudates. NECK: No masses, no JVD. CHEST: No chest wall deformity. LUNGS: Equal air entry with no crackles, wheeze, rhonchi or dullness. CVS: S1 and S2 normal with no audible murmurs, regular rhythm. ABDOMEN: No hepatosplenomegaly, normal bowel sounds, no guarding or rigidity. Extremities: There is no significant peripheral edema. No clubbing, no cyanosis. Peripheral pulses are intact. - Labs CBC & Chem 7: 05/19/17 05:58 05/19/17 05:58 Labs: Abnormal Lab Results - Last 24 Hours (Table) 05/18/17 05/18/17 05/19/17 Range/Units 16:41 21:14 01:00 WBC (3.8-10.6) k/uL Neutrophils # (1.3-7.7) k/uL Chloride (98-107) mmol/L Carbon Dioxide (22-30) mmol/L Glucose (74-99) mg/dL POC Glucose (mg/dL) 109 H 106 H 136 H (75-99) mg/dL 05/19/17 05/19/17 05/19/17 Range/Units 05:58 05:58 06:19 WBC 10.9 H (3.8-10.6) k/uL Neutrophils # 7.9 H (1.3-7.7) k/uL Chloride 108 H (98-107) mmol/L Carbon Dioxide 20 L (22-30) mmol/L Glucose 110 H (74-99) mg/dL POC Glucose (mg/dL) 135 H (75-99) mg/dL 05/19/17 Range/Units 11:34 WBC (3.8-10.6) k/uL Neutrophils # (1.3-7.7) k/uL Chloride (98-107) mmol/L Carbon Dioxide (22-30) mmol/L Glucose (74-99) mg/dL POC Glucose (mg/dL) 147 H (75-99) mg/dL Microbiology - Last 24 Hours (Table) 05/13/17 06:46 Blood Culture - Final Blood No Growth after 144 hours 05/15/17 10:55 CSF Gram Stain - Preliminary Cerebral Spinal Fluid CSF Culture - Preliminary Assessment and Plan Plan: Assessment 1 Altered mentation with significant diminished level of consciousness. CAT scan of the brain is nonrevealing. Diffuse slowing on the EEG without seizure activity. Rule out metabolic encephalopathy. Rule out aseptic meningitis/ encephalitis complicating overall presentation. The patient had diffuse encephalopathy. Lumbar puncture negative. 2 atrial fibrillation with rapid ventricular response, treated in the current rhythm is sinus 3 CHF with global hypokinesis and ejection fraction of 20% 4 non-Q-wave myocardial infarction 5 history of nonsustained ventricular tachycardia 6 hyponatremia currently on D5 water. The hyponatremia is essentially due to free water deficit 7 dementia 8 diabetes mellitus 9 hyperlipidemia 7 hypertension Plan: The patient was seen and evaluated by Dr. Turcios. She is stable from the pulmonary and critical care standpoint. The plan is for discharge to [facility] tomorrow. In the interim we'll continue with her current medications. We'll continue to follow.
[2017-05-19 17:13] LABS: Glucose,Whole Blood 111 mg/dL (75-99)
[2017-05-19 21:31] LABS: Glucose,Whole Blood 130 mg/dL (75-99)
[2017-05-19] MEDS: ATORVASTATIN 20 MG TAB PO SCH (21:36)
[2017-05-20] MEDS: INSULIN LISPRO (humaLOG) 300 UNIT/3 ML VIAL SQ SCH ×3 (00:10→11:58)
[2017-05-20] MEDS: NITROGLYCERIN OINT 1 INCH/GM PACKET TOPICAL SCH ×3 (00:10→11:59)
[2017-05-20 00:20] LABS: Glucose,Whole Blood 115 mg/dL (75-99)
[2017-05-20 06:12] VITALS: RESP 18
[2017-05-20 06:24] LABS: Glucose,Whole Blood 114 mg/dL (75-99)
[2017-05-20 06:24] LABS: Anion Gap 10 mmol/L; Calcium 9.1 mg/dL (8.4-10.2); Carbon Dioxide 19 mmol/L (22-30); Chloride 107 mmol/L (98-107); Glucose 115 mg/dL (74-99); Non-African American GFR(MDRD) >60 (>60 ml/min/1.73 sqM); Sodium 136 mmol/L (137-145)
[2017-05-20 06:30] LABS: Potassium 4.4 mmol/L (3.5-5.1)
[2017-05-20 06:31] LABS: Blood Urea Nitrogen 17 mg/dL (7-17)
[2017-05-20 06:32] LABS: Basophils # (A) 0.1 k/uL (0-0.2); Basophils % (A) 1 %; CH 31.7; CHCM 34.6; Eosinophils # (A) 0.1 k/uL (0-0.7); Eosinophils % (A) 1 %; HCT 41.1 % (34.0-46.0); HDW 2.44; HGB 13.7 gm/dL (11.4-16.0); Luc # (Auto) 0.25; Luc % (Auto) 3; Lymphocytes # (A) 1.4 k/uL (1.0-4.8); Lymphocytes % (A) 17 %; MCH 30.7 pg (25.0-35.0); MCHC 33.4 g/dL (31.0-37.0); Mean Platelet Volume 9.3; Monocytes # (A) 0.7 k/uL (0-1.0); Monocytes % (A) 8 %; Neutrophils # (A) 5.6 k/uL (1.3-7.7); Neutrophils % (A) 70 %; RBC 4.46 m/uL (3.80-5.40); RDW 13.6 % (11.5-15.5); WBC 8.1 k/uL (3.8-10.6)
[2017-05-20] MEDS: ASPIRIN 300 MG SUPP RECTAL SCH (09:40)
[2017-05-20] MEDS: METOPROLOL TARTRATE 25 MG TAB PO SCH (09:40)
[2017-05-20] MEDS: ENOXAPARIN 40 MG/0.4 ML SYRINGE SQ SCH (09:40)
[2017-05-20 11:51] LABS: Glucose,Whole Blood 120 mg/dL (75-99)
--- NOTE | 2017-05-20 13:09 | P.DS ---
Providers Date of admission: 05/06/17 06:03 Expected date of discharge: 05/20/17 Attending physician: Abhi Arango Consults: 05/07/17 10:09 Consult Physician Routine Consulting Provider: Jennifer Brito Consult Reason/Comments: mental status changes Do you want consulting provider notified?: Yes 05/09/17 10:54 Consult Physician Routine Consulting Provider: Duane Pantoja Consult Reason/Comments: confusion, dementia Do you want consulting provider notified?: Yes 05/12/17 16:13 Consult Physician Routine Consulting Provider: Glenys Turcios Consult Reason/Comments: ICU management Do you want consulting provider notified?: Yes Consult Physician Routine Consulting Provider: Melvina Cochran Consult Reason/Comments: SVT Do you want consulting provider notified?: Yes 05/15/17 07:00 Consult Anesthesia Urgent Consulting Provider: Anesthesia,Services Consult Reason/Comments: Lumbar Puncture to rule out meningitis and encephalitis. Primary care physician: Liza Medeiros Hospital Course: Discharge diagnosis 1. Acute toxo metabolic encephalopathy 2. Hypovolemic hypernatremia, improved 3. Severe dehydration 4. Starvation ketosis with elevated lactic acid, resolved 5. Acute Non-Q-wave myocardial infarction present on admission: She has been evaluated by cardiology the recommending medical management. 6. supraventricular tachycardia seen and evaluated by cardiology. Heart rate well controlled. Continue metoprolol 7. history of Atrial fibrillation with rapid ventricular response: Continue metoprolol. Patient not a good candidate for anticoagulation because of her risks of multiple falls 8. Hyperlipidemia continue statin 9. Acute on chronic systolic CHF: last Echo shows an EF of less than 20%. 10. Diabetes mellitus type 2: Hemoglobin A1c of 6.9. Start metformin 500 mg twice a day 11. Dementia/underlying cognitive impairment 12. Essential hypertension 13. Generalized anxiety disorder Hospital course This is a 81-year-old female with a known past medical history of dementia, hypertension, hyperlipidemia, chronic vertigo, anxiety, and diabetes mellitus. Patient was brought into the emergency room by her son for chest discomfort. ER reports that the patient told her son that she was having chest pain 3 times. She was found to have elevated troponin at 0.988 started on IV heparin and diagnosed with a non-Q wave elevated myocardial infarction. EKG had shown a general accelerated junctional rhythm with PVCs. She's been admitted to the sixth floor cardiology has been consulted. Chest x-ray showed signs of congestive heart failure. Patient was seen evaluated by cardiology. They recommended medical management and no intervention for her FL. She has been placed on a full aspirin and she is to continue Lipitor. Also she had evidence of atrial fibrillation and had episode of rapid ventricular response her metoprolol was increased. She tolerated this well. She's not a good candidate for anticoagulation because of her risk of falls. Patient also had significant confusion and recently been diagnosed with dementia. She had evidence of an acute toxic metabolic encephalopathy. She was seen by neurology and psychiatry. It was recommended that she avoids any benzodiazepine. Xanax was discontinued. Computed tomography scan of the brain showed cerebral atrophy. No acute intracranial abnormality. And an old 1 cm left side lacunar infarct. Patient's mentation continued to worsen there was concerns about possible meningitis. Lumbar puncture was completed and was negative. Patient did require some time in the ICU after having an episode of SVT. Patient was placed on Cardizem drip as well as amiodarone. Again those medications were able to be discontinued metoprolol was increased. Patient has had no further arrhythmias. As far as her mentation she is alert and orientated to her name. Less confused and obtunded than when she presented to the hospital. Patient is been cleared for consulting physicians for discharge. She'll be discharged to [facility] for further rehabilitation. Patient's will also be started on metformin for her diabetes. She had been without medications for years. On admission her blood sugars were elevated. Hemoglobin A1c is 6.9. She has required some sliding scale insulin. Therefore she'll be placed on metformin. And we will monitor at the custodial. Patient is medical stable for discharge. Please refer to chart for further details. Patient Condition at Discharge: Stable Plan - Discharge Summary New Discharge Prescriptions: New Aspirin EC [Ecotrin] 325 mg PO DAILY #30 tablet.dr metFORMIN HCL [Glucophage] 500 mg PO BID #60 tab Metoprolol Tartrate [Lopressor] 25 mg PO BID tab Continue Simvastatin [Zocor] 20 mg PO HS Montelukast [Singulair] 10 mg PO DAILY Escitalopram [Lexapro] 10 mg PO DAILY Folic Acid 1 mg PO DAILY Meclizine [Antivert] 25 mg PO TID PRN PRN Reason: DIZZINESS Discontinued Aspirin 81 mg PO DAILY ALPRAZolam [Xanax] 0.25 mg PO BID PRN PRN Reason: Anxiety cloNIDine HCL [Clonidine HCl] 0.1 mg PO TID Metoprolol Tartrate [Lopressor] 12.5 mg PO BID #0 tab Discharge Medication List Simvastatin [Zocor] 20 mg PO HS 02/01/14 [History] Montelukast [Singulair] 10 mg PO DAILY 04/02/15 [History] Escitalopram [Lexapro] 10 mg PO DAILY 05/06/17 [History] Folic Acid 1 mg PO DAILY 05/06/17 [History] Meclizine [Antivert] 25 mg PO TID PRN 05/06/17 [History] Aspirin EC [Ecotrin] 325 mg PO DAILY #30 tablet. 05/20/17 [Rx] Metoprolol Tartrate [Lopressor] 25 mg PO BID tab 05/20/17 [Rx] metFORMIN HCL [Glucophage] 500 mg PO BID #60 tab 05/20/17 [Rx] Follow up Appointment(s)/Referral(s): Liza Medeiros MD [Primary Care Provider] - 1 Week Neto Pickett MD [STAFF PHYSICIAN] - 1 Week Activity/Diet/Wound Care/Special Instructions: Diet: Diabetic, cardiac Mechanical dysphagia II, Aspiration precautions Activity: As tolerated Patient to be discharged to [facility]. Dr. Degroot to follow at [facility]. Discharge Disposition: TRANSFER TO SNF/ECF
[2017-05-20 13:28] VITALS: BMI 21.2
--- NOTE | 2017-05-20 13:57 | P.PN ---
Subjective Principal diagnosis: Acute non-ST segment elevation myocardial infarction and severely impaired LV function An 81-year-old female patient with known history of dementia who was admitted to the hospital because of chest pain. Her son who is the primary caregiver noted that the patient was complaining of chest discomfort. The patient was brought into the emergency department because of chest pain. A cardiology evaluation was done and the patient was diagnosed having a acute non-ST segment elevation myocardial infarction. She has a severely impaired LV function with an ejection fraction of less than 20% based on echocardiogram study. She also has a chronic atrial fibrillation. During the same hospitalization the patient was found to be quite confused and she continued to have altered mental status and progressively became completely unresponsive. The patient was brought in to the intensive care yesterday as her cardiac rhythm went tachycardic and the patient was brought in for a potential problem of an SVT. I do not see was given during a emergency situation and the patient did not respond an underlying rhythm was reviewed and seems that the patient was in a flutter rhythm. I think that the patient was in a combination of tachycardia in the setting of atrial fibrillation/flutter. In the ICU, the patient was given Cardizem drip and beta blockers. The heart rate slowed down and currently she is back to normal sinus. She remained hemodynamically stable throughout this event. Neurologically however the patient remains unresponsive. Neurology is following the patient had psychiatry is following the patient. At one point she was thought to be catatonic and she was given a trial of Ativan which again failed to improve her condition. CAT scan of the brain has been done on admission and a repeat CAT scan of the brain was done this afternoon and it showed cerebral atrophy without any acute intracranial abnormalities. No neck stiffness. No fever. 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 The EEG also showed severe widespread diffuse disturbance of cerebral function without any evidence of focal lateralized or epileptiform abnormalities. No seizure activity has been noted. Also, the patient was found to be profoundly hyponatremic. The sodium level was around 161 and she was started on D5 water initially at 100 mL which I increased up to 150 and earlier this morning her sodium level came down to 150. She also had a component of acute kidney injury secondary to intravascular volume depletion and this is also improving. A triple lumen catheter inserted knowing that the patient had a poor IV access. A Dobbhoff catheter was also inserted for enteral feeding. The patient was seen again today 05/14/2017 in follow-up in the intensive care unit. She continues to wax and wane in regards to her mental status. She does seem a little more alert today as compared to yesterday. She continues with a loose nonproductive cough. Chest x-ray reveals some mild central venous congestion without suspicious focal infiltrates. Her heart rate is better controlled. The diltiazem drip was discontinued. She remains on amiodarone at 0.5 mg per hour. Currently in sinus rhythm. She's been hemodynamically stable. Not on any pressors. She is afebrile. She is being followed by neurology who was planning a lumbar puncture today. Her INR was corrected to 1.4 via vitamin K and fresh frozen plasma. On 05/15/2017 the patient is being seen in follow-up in intensive care unit. I would say she is gradually becoming more awake. On today's evaluation she was having some limited conversation with the nurses. I felt that she was still lethargic and confused. Obviously her mentation is waxing and waning however she seems to be more awake and she opens her eyes spontaneously and mumbles and says few words. She pulled out her Dobbhoff catheter however she did not aspirate. The catheter will be reinserted for feeding purposes of medication. The patient was given fresh frozen plasma and vitamin K and her coagulopathy was reversed. The lumbar puncture was attempted by neurology yesterday evening without success as the patient had increased movement. Anesthesia will be consulted for the same. Her white cell count is at 18.2. Chest x-ray from today shows cardiomegaly with a new patchy bibasilar pulmonary infiltrates. The patient remains in sinus rhythm with occasional. Rate is controlled for now. Hemodynamically stable. Producing adequate amount of urine output. No fever or chills. On 05/16/2017 I'm seeing this patient in follow-up in the intensive care unit. The patient is opening her eyes spontaneously. She is trying to talk over his speech is garbled. At times she gets a bit agitated. I tried to give her some applesauce which she was able to swallow. A Dobbhoff catheter his been taken off. Electrodes are within normal limits. Lumbar puncture was completed and the CSF findings preliminary findings are stable and within normal limits and I' m awaiting for HSV by PCR. Chest x-ray findings are also stable. Electrolytes have improved and his sodium level has normalized. She is hemodynamically stable. On 05/17/2017, I'm seeing this patient on follow-up, she just came back from her swallow evaluation, results of which are pending. Patient remains confused, speech is garbled, final report on the lumbar puncture is pending, chest x-ray has been relatively stable. Probable left lower lobe atelectasis persists, difficult to rule out underlying pneumonia but felt to be less likely. WBC count is 15.2 hemoglobin is normal basic metabolic profile is normal. Reevaluated today on 05/18/2017, patient seems to be doing well, she is actually much more awake, alert, answering simple questions, denies any specific complaints. Labs were all reviewed. Her swallow evaluation from yesterday showed no aspiration or penetration. Patient is being fed easily without any difficulty today. The patient was seen again today 05/19/2017 in follow-up on the selective care unit. She is currently resting quite comfortably in bed. She is awake and alert in no acute distress. Her speech remains somewhat garbled. She is maintaining good O2 saturations in the mid 90s on room air. Afebrile. She's been hemodynamically stable. She is currently in sinus rhythm. Seen on 05/20/2017, seems to be in no form of distress, patient is confused but seems to be pleasantly confused, in no form of respiratory distress. Hemodynamically stable. CBC is relatively normal. Basic metabolic profile is also normal. Sodium is 136. Renal profile is normal. Blood sugar is 120. Objective - Vital Signs Vital signs: Vital Signs Temp 97.5 F L 05/20/17 11:51 Pulse 79 05/20/17 11:51 Resp 18 05/20/17 11:51 BP 124/73 05/20/17 11:51 Pulse Ox 97 05/20/17 11:51 Intake & Output 05/19/17 05/20/17 05/20/17 18:59 06:59 18:59 Intake Total 80 100 Output Total 140 Balance -60 100 Weight 56 kg 56 kg Intake: Oral 80 100 Output: Urine 140 Uretheral (Albarran) 140 Other: Voiding Method Indwelling Catheter Toilet Toilet # Voids 1 0 1 - Exam Physical Exam: Revealed 81-year-old female in no distress. HEENT:[Neck is supple.] [No neck masses.] [No thyromegaly.] [No JVD.] Chest: [Clear throughout, no crackles, no rhonchi, no wheezes.] Cardiac Exam: [Normal S1 and S2, no S3 gallop, no murmur.] Abdomen: [Soft, nontender, no megaly, no rebound, no guarding, normal bowel sounds.] Extremities: [No clubbing, no edema, no cyanosis.] Neurological Exam: [No focal neurologic deficit.] - Labs CBC & Chem 7: 05/20/17 05:43 05/20/17 05:43 Labs: Abnormal Lab Results - Last 24 Hours (Table) 05/19/17 05/19/17 05/20/17 Range/Units 17:08 21:29 00:09 Sodium (137-145) mmol/L Carbon Dioxide (22-30) mmol/L Glucose (74-99) mg/dL POC Glucose (mg/dL) 111 H 130 H 115 H (75-99) mg/dL 05/20/17 05/20/17 05/20/17 Range/Units 05:43 06:14 11:49 Sodium 136 L (137-145) mmol/L Carbon Dioxide 19 L (22-30) mmol/L Glucose 115 H (74-99) mg/dL POC Glucose (mg/dL) 114 H 120 H (75-99) mg/dL Microbiology - Last 24 Hours (Table) 05/15/17 10:55 CSF Gram Stain - Final Cerebral Spinal Fluid CSF Culture - Final Assessment and Plan Plan: 1 altered mentation with significant diminished level of consciousness. Significant improvement noted over the last few days. 2 atrial fibrillation with rapid ventricular response, treated in the current rhythm is sinus 3 CHF with global hypokinesis and ejection fraction of 20% 4 non-Q-wave myocardial infarction 5 history of nonsustained ventricular tachycardia, currently inactive in stable 6 hypernatremia , recovered and the patient on half-normal saline D5 half- normal at the rate of 75 mL an hour 7 dementia 8 diabetes mellitus 9 hyperlipidemia 7 hypertension 8 limited bibasilar pulmonary infiltrate, rule out aspiration, swallow evaluation was done on 05/17/2017, results came back unremarkable. Recommendation: Continue present supportive care measures, consider discharge planning to a custodial facility.. From the pulmonary perspective, we will follow when necessary. Time with Patient: Less than 30
[2017-05-20 15:49] VITALS: BP 123/68; PULSE 94; TEMP 97.7
--- NOTE | 2017-05-20 19:19 | P.PN ---
Subjective This patient is a 81-year-old female admitted with altered mental status and confusion. She is noted today to have ongoing symptoms of underlying cognitive impairment and dementia. She is able to answer only a few questions appropriately. We will continue close neurological follow-up with this patient during this admission. The patient is laying in bed and is quite confused this evening. She is not sure why she was admitted to the hospital. She was noted to continue due to mistreated evidence of confusion early this morning. As noted she did have an acute non-Q wave myocardial infarction on admission. She is being evaluated and treated by cardiology for this condition. She does have evidence of atrial fibrillation but is not a candidate for long-term anticoagulation due to her multiple risk of fall. Overall the patient seems to be doing about the same today. She does have evidence of underlying dementia as well. We will continue current neurological evaluation and monitoring of this patient. Her overall prognosis at this time remains very guarded. Her speech is fluent with no evidence of any aphasia. We will continue close neurological workup for this patient with altered mental status. She does have history of underlying dementia. According to her she was diagnosed only recently after she had failed a memory test by her primary care physician. We have explained to the that dementia does not develop over a matter of weeks or months but usually takes years. She was transferred to the intensive care unit as she had developed evidence of SVT. Cardiology has started her on a Cardizem drip as well as amiodarone drip. She remained obtunded and lethargic in the ICU. She does not open her eyes. Her last computed tomography scan of the brain was completed on 05/07/2017 and failed to reveal any acute changes. We did obtain a follow-up computed tomography scan of the brain that was also negative of any acute findings. She is unable to have an MRI of the brain that she has a pacemaker. The patient was transferred out of the ICU to [facility]. She does have a sitter at bedside. She continues to do well in terms of her overall mental status. There has been a slow but steady improvement in her level of cognition. She seems to be less confused and agitated today. She is following simple commands. She is much more awake and alert and is able to answer simple questions. She did undergo a swallow evaluation yesterday which she did pass as there was no evidence of aspiration or penetration. Her spinal fluid results came back negative for HSV 1 and HSV 2 by PCR. Her clinical and neurological findings at this time are consistent with a diffuse toxic metabolic encephalopathy which is slowly improving. She is continuing to show some evidence of improvement in terms of her overall mental status. Patient remains hemodynamically stable. She is in no respiratory distress today. Her serum sodium is 136. Her hemoglobin A1c is less noted to be 6.9. She is being considered for [facility] to [facility] possibly later today. We will continue close neurological follow-up of this patient during this admission. Objective - Vital Signs Vital signs: Vital Signs Temp 97.3 F L 05/20/17 04:00 Pulse 83 05/20/17 04:00 Resp 18 05/20/17 04:00 BP 123/80 05/20/17 04:00 Pulse Ox 99 05/20/17 04:00 Intake & Output 05/19/17 05/20/17 05/20/17 18:59 06:59 18:59 Intake Total 80 100 Output Total 140 Balance -60 100 Weight 56 kg Intake: Oral 80 100 Output: Urine 140 Uretheral (Albarran) 140 Other: Voiding Method Indwelling Catheter Toilet # Voids 1 0 1 - Exam Physical examination: PHYSICAL EXAMINATION: Patient is resting comfortably in bed. VITAL SIGNS: Blood pressure is [123/68]. Heart rate is [94]. Respiration is [18] . Temperature is [97.7]. HEENT: Head is atraumatic, neck is supple, there were no carotid bruits. CHEST: Lungs are clear to auscultation and percussion. CARDIAC: S1, S2 normal rate and rhythm. There is no murmur. ABDOMEN: Soft and nontender. Bowel sounds are present. EXTREMITIES: There is no pedal edema. Peripheral pulses are present. Neurological examination: Patient is awake alert and oriented 2. Her speech is slow but fluent. Her memory and intellectual functions are impaired. The patient is not opening her eyes during examination in the ICU. She is not combative but seems to be very restless. She has no evidence of nuchal rigidity or meningismus on examination. Her remaining neurological examination is unchanged from yesterday. Patient does seem to be more awake and alert today. She does have a sitter at bedside. She does show some improvement in her overall status since transfer out of the ICU. Patient does follow simple commands. She is showing some improvement in her overall cognitive function since the last few days. - Labs CBC & Chem 7: 05/20/17 05:43 05/20/17 05:43 Labs: Abnormal Lab Results - Last 24 Hours (Table) 05/19/17 05/19/17 05/19/17 Range/Units 11:34 17:08 21:29 Sodium (137-145) mmol/L Carbon Dioxide (22-30) mmol/L Glucose (74-99) mg/dL POC Glucose (mg/dL) 147 H 111 H 130 H (75-99) mg/dL 05/20/17 05/20/17 05/20/17 Range/Units 00:09 05:43 06:14 Sodium 136 L (137-145) mmol/L Carbon Dioxide 19 L (22-30) mmol/L Glucose 115 H (74-99) mg/dL POC Glucose (mg/dL) 115 H 114 H (75-99) mg/dL Microbiology - Last 24 Hours (Table) 05/15/17 10:55 CSF Gram Stain - Final Cerebral Spinal Fluid CSF Culture - Final 05/13/17 06:46 Blood Culture - Final Blood No Growth after 144 hours Assessment and Plan (1) Acute encephalopathy Status: Acute Code(s): G93.40 - ENCEPHALOPATHY, UNSPECIFIED (2) Dementia Status: Acute Code(s): F03.90 - UNSPECIFIED DEMENTIA WITHOUT BEHAVIORAL DISTURBANCE (3) NSTEMI (non-ST elevated myocardial infarction) Status: Acute Code(s): I21.4 - NON-ST ELEVATION (NSTEMI) MYOCARDIAL INFARCTION (4) Near syncope Status: Acute Code(s): R55 - SYNCOPE AND COLLAPSE Plan: This patient is a 81-year-old female who was initially admitted to Hospital with symptoms of chest pain and altered mental status. Patient continued to show evidence of worsening mental status changes since her admission to the hospital. She was recently being diagnosed and worked up for underlying dementia. Patient was seen by cardiology and she was diagnosed as having an acute non-ST segment elevation myocardial infarction. She also has a severely impaired LV function with an ejection fraction of less than 20% on echocardiogram study. She also has chronic atrial fibrillation. She is unable to go for MRI she also has a pacemaker. She has remained quite confused. She underwent a repeat computed tomography scan of the brain today the results of which are noted above. CAT scan fails to reveal any evidence of acute stroke or hemorrhage. There is evidence of an old left insular infarct. Patient remains somewhat obtunded with no clear evidence of her underlying etiology for severe encephalopathy. We did discuss her findings in detail with the son yesterday in the ICU. We have explained that her dementia would not worsen significantly in a period of a few weeks. We have recommended today for the patient to be considered for lumbar puncture for further evaluation to rule out possibility of encephalitis and/or meningitis. The son was contacted today for consent to proceed with LP and this was given to us over the phone. The patient does remain afebrile. She is still not opening her eyes very much since reevaluation yesterday. She does have evidence of underlying moderate to severe encephalopathy based on her recent EEG. We will continue close neurological follow-up of this patient in the intensive care unit. As noted we would like to proceed with lumbar puncture to rule out any other possible etiologies for her acute mental status changes. Case was discussed today with Dr. Viera. He is in full agreement to proceed with LP for this patient. We did attempt a lumbar puncture this evening at the patient's bedside in the ICU. Due to her movement and agitation we were unable to successfully obtain spinal fluid. We did consult anesthesia yesterday and they were able to complete a lumbar puncture and spinal fluid has been sent for CSF analysis. Her initial spinal fluid was negative on Gram stain testing for any organisms. A full array of testing is still pending from the laboratory. She remains afebrile. We did discuss today the reasoning for lumbar puncture with the patient's son who was at bedside. He has given consent. Patient was able to undergo a lumbar puncture by anesthesia yesterday. Preliminary results of the spinal fluid indicate no evidence for meningitis based on the CSF results. An array of other tests are still pending and we will need to await those final reports. Check with the laboratory today reveals that the HSV and West Nile virus results are still pending today. Patient does show slight improvement in her overall mental status today. She continues to have a sitter at bedside. Her spinal fluid results did come back negative for HSV 1 and HSV 2 by PCR. She is continuing to show improvement in her overall cognitive function. Her clinical findings are consistent with a toxic metabolic encephalopathy that is slowly improving. She is being considered for discharge to extended care facility. Patient has been medically cleared for discharge to the [facility] later today. She may follow-up in the outpatient neurology clinic in 3-4 weeks. We will continue close neurological follow-up of this patient during this admission. Her overall prognosis at this time remains guarded.
--- NOTE | 2017-05-24 07:05 | PCN ---
PROCEDURE NOTE DATE OF PROCEDURE: 05/14/2017 LUMBAR PUNCTURE PROCEDURE NOTE. SURGEON: Sergio Brito MD PREOPERATIVE DIAGNOSIS: This patient is an 81-year-old female being evaluated for sepsis and altered mental status. Lumbar puncture to rule out meningitis. OPERATION: Lumbar puncture. ANESTHESIA: Local. PROCEDURE: A lumbar puncture was performed after aseptic preparation of the low back area. The L3- L4 space was identified and locally infiltrated with 1% lidocaine without epinephrine. Adequate local anesthesia was achieved. A size 20 lumbar puncture needle was inserted on several attempts. The patient had some spinal deformity requiring several lumbar puncture attempts. Several attempts were attempted despite the patient being quite agitated. Due to the agitation and multiple failed attempts, the lumbar puncture procedure was canceled. It was decided to consult anesthesia for their attempt at lumbar puncture and fluid analysis. MMODL / IJN: [id number] /
--- NOTE | 2017-05-26 15:12 | CDI ---
In responding to this query, please exercise your independent professional judgment. The [facility] Coding Staff and Clinical Documentation Specialists appreciate your assistance in clarifying documentation, maintaining compliance with coding guidelines, accurately documenting patients condition and capturing severity of illness. The fact that a question is asked does not imply that any particular answer is desired or expected. Communication forms are a method of clarifying documentation and are not made part of the Legal Health Record. Thank you in advance for your clarification. Last Revision, July 2015 Aries Herron [address] [facility] [place] [address] Documentation Clarification Form Date: 05/13/2017 5:19:00 PM From: Rhiannon Childress Admit Date: 05/06/2017 6:03:00 AM Patient Name: Arlyn Ghosh Visit Number: [id number] Discharge Date: Dr. Ani Degroot Malnutrition has been documented in nutritional assessment. History/Risk Factors: Dementia HTN, Encephalopathy, DM, Clinical Indicators: Nutrition intake poor, was refusing all meals x 6 days. Physical Findings: emaciated, underweight, temporal scooping, sunken eyes loose fragile skin Labs: Albumin 3.4, Total Protein 6.6 Lactic acid 5.4, 3.7, 1.7 Current BMI: 16.9 Insufficient energy intake: Weight Loss: yes, underweight Loss of subcutaneous fat: yes Treatment: Dietary Consult: Yes Tube Feedings per orders IV Fluids Lab monitoring: I/O In your professional opinion, can you please clarify if these findings signify one of the following conditions? Mild Protein Malnutrition Mild Protein-Calorie Malnutrition Moderate Protein Malnutrition Moderate Protein-Calorie Malnutrition Severe Protein Malnutrition Severe Protein-Calorie Malnutrition Malnutrition following GI surgery Malnutrition Other condition, please specify Unable to determine Please document in your progress notes and discharge summary in order to capture severity of illness and risk of mortality. Include clinical findings that support your diagnosis. FYI: Press F11 to launch patient chart. VIVIAN
== END 2017-05-20 16:32 | DRG 280 ==
LOC: EC 03:27 → 6SEL 06:03 → 5MS5E 05-09 21:29 → 6ICU 05-12 16:30 → 6SEL 05-16 14:58
PROVIDERS: ADMIT Internal Medicine; ATTEND Internal Medicine
PROC: 02H633Z Insertion of Infusion Device into Right Atrium, Percutaneous Approach (ICD-10-PCS; principal; 2017-05-13)
PROC: 30233L1 Transfusion of Nonautologous Fresh Plasma into Peripheral Vein, Percutaneous Approach (ICD-10-PCS; 2017-05-18)
DX: I21.4 Non-ST elevation (NSTEMI) myocardial infarction (principal); G92 Toxic encephalopathy; I50.43 Acute on chronic combined systolic (congestive) and diastolic (congestive) heart failure; N17.9 Acute kidney failure, unspecified; E87.2 Acidosis; E87.0 Hyperosmolality and hypernatremia; I48.92 Unspecified atrial flutter; D68.9 Coagulation defect, unspecified; E86.0 Dehydration; I48.0 Paroxysmal atrial fibrillation; I47.1 Supraventricular tachycardia; E87.1 Hypo-osmolality and hyponatremia; J98.11 Atelectasis; F03.90 Unspecified dementia, unspecified severity, without behavioral disturbance, psychotic disturbance, mood disturbance, and anxiety; I48.2 Chronic atrial fibrillation; I11.0 Hypertensive heart disease with heart failure; E11.9 Type 2 diabetes mellitus without complications; E78.5 Hyperlipidemia, unspecified; E86.1 Hypovolemia; F41.1 Generalized anxiety disorder; I49.5 Sick sinus syndrome; I87.2 Venous insufficiency (chronic) (peripheral); J45.909 Unspecified asthma, uncomplicated; K21.9 Gastro-esophageal reflux disease without esophagitis; Z66 Do not resuscitate; Z79.82 Long term (current) use of aspirin; Z79.84 Long term (current) use of oral hypoglycemic drugs; Z79.899 Other long term (current) drug therapy; Z86.73 Personal history of transient ischemic attack (TIA), and cerebral infarction without residual deficits; Z87.891 Personal history of nicotine dependence; Z91.81 History of falling; Z95.0 Presence of cardiac pacemaker; Z88.1 Allergy status to other antibiotic agents; Z88.0 Allergy status to penicillin; Z88.5 Allergy status to narcotic agent; Z53.9 Procedure and treatment not carried out, unspecified reason
CPT/HCPCS: 36415; 70450; 71010; 71020; 74230; 80048; 80053; 80061; 81003; 82042; 82140; 82150; 82180; 82550; 82553; 82607; 82746; 82945; 83036; 83605; 83690; 83735; 83880; 84100; 84132; 84157; 84443; 84484; 85025; 85049; 85610; 85730; 86403; 86850; 86900; 86901; 87040; 87070; 87086; 87205; 87529; 87798; 88108; 89050; 93005; 93306; 94760; 95816; 96365; 96375; 96376; 99291